=== PATIENT | male | born 1945 | race Caucasian/White ===

== ENCOUNTER 2017-07-17 05:32 | Inpatient (IN) ==
[2017-07-17 05:54] VITALS: BMI 23.1
[2017-07-17] MEDS ORDERED: CEFAZOLIN 1 G INJECTION IVP ONE (06:00)
[2017-07-17] MEDS: LR 1,000 ML IV SCH ×5 (06:36→23:34)
[2017-07-17] MEDS ORDERED: INDOCYANINE GREEN 25mg INJECTION ONE (06:58)
[2017-07-17] MEDS ORDERED: BUPIVACAINE 0.25% (2.5mg/ml) PF 30ml INJECTION ONE (07:05)
[2017-07-17] MEDS ORDERED: SALINE FLUSH 10ml SYRINGE ONE ×2 (07:08→07:58)
--- NOTE | 2017-07-17 07:14 | Anesthesia Preoperative Report ---
Anesthesia Preoperative Record - Date and Time Date: 07/17/17 Preoperative Diagnosis: Robotic Patti K82.8 Proposed Procedure: robotic LC NPO Since Date: 07/16/17 NPO Since Time: 23:00 Allergies/Adverse Reactions: Allergies Allergy/AdvReac Type Severity Reaction Status Date / Time latex AdvReac blisters Verified 07/17/17 06:03 - Vital Signs Vital Signs: Temperature 97.8 F 07/17/17 05:54 Pulse Rate 90 07/17/17 06:08 Respiratory Rate 20 07/17/17 05:54 Blood Pressure 137/87 07/17/17 05:54 Pulse Oximetry 92 07/17/17 05:54 Oxygen Delivery Method Room Air Height and Weight: Height 5 ft 11 in Weight 75 kg Body Mass Index 23.1 - Medications Inpatient Medications: Current Medications Lactated Ringer's (Lactated Ringers) 1,000 mls @ 50 mls/hr IV .Q20H ADRIEL Last Admin: 07/17/17 06:36 Dose: 50 mls/hr Lidocaine HCl (Xylocaine-Mpf 1% Vial) 1 mg ID O ONE Stop: 07/17/17 16:50 Last Admin: 07/17/17 06:36 Dose: Not Given Home Medications: Home Medications Medication Instructions Recorded Confirmed Type Naproxen 250 mg tablet 250 mg PO QDRHS 90 Days tab 05/30/17 07/17/17 History Advair Diskus (Fluticasone 250 1 - 2 puff INH DAILY 30 Days #60 06/21/17 History mcg-salmeterol 50 mcg)dose powdr for inhalation [place] 10 mg-acetaminophen 325 mg 1 tab PO QID PRN 30 Days #120 tab 06/21/17 History tablet Prevacid (Lansoprazole) 30 mg 30 mg PO DAILY 90 Days cap 06/21/17 07/17/17 History capsule,delayed release amlodipine 5 mg tablet 5 mg PO DAILY tab 06/21/17 07/17/17 History atorvastatin 10 mg tablet 10 mg PO DAILY 90 Days tab 06/21/17 07/17/17 History roflumilast 500 mcg tablet 500 mcg PO DAILY 30 Days tab 06/21/17 07/17/17 History umeclidinium 62.5 mcg/actuation 1 puff INH DAILY 30 Days #30 06/21/17 07/17/17 History blister powder for inhalation raNITIdine HCl [Zantac] 150 mg PO DAILY 07/02/17 07/17/17 History Is Patient on Beta Nighat?: No - Medical History Respiratory: Reports: Other (lung disease, lung Ca hx with right lobectomy, home O2) Cardiovascular: Reports: Hypertension DENIES: Angina, Congestive Heart Failure, Coronary Artery Disease, Myocardial Infarction Gastrointestional: Reports: Gastroesophageal Reflux Disease (well controlled) Renal/Endocrine: DENIES: Diabetes Mellitus Type 2 Other History: DENIES: Anesthesia Reactions - Surgical History HEENT Surgeries: Reports: Tonsillectomy (1949's) Respiratory Surgery/Treatments: Reports: Oxygen Administration (2 l at night) GI Surgery/Treatments: Reports: Appendectomy, Colonoscopy, EGD Musculoskeletal Surgery/Tx: Reports: Total Knee Replacement (right) Anesthesia Reactions: None Hx Family Anesthesia Reaction: No History of Motion Sickness: No - Social History Smoking Status: Current every day smoker Hx Chewing Tobacco Use: No Second Hand Exposure: No Substance Use Type: does not use - Pertinent Findings EKG Rhythm: Normal Sinus Rhythm - Physical Exam Respiratory Exam: Present: lungs clear (diminished right) - Airway Assessment Mallampati Score: II Teeth: upper dentures, lower dentures (both out and in pts possession) Overall Assessment: no airway concerns - ASA ASA Score: 3 - Plan Anesthesia: General TIVA - Discussion Discussion: Discussed risks/options/alternatives of anesthesia and questions answered. Patient consents. Nursing pain assessment noted. Present for Discussion: family member Attestation Statement: Prior to the delivery of any anesthetic medication, I examined the patient, developed the plan, obtained the patient's consent and discussed the risk and benefits of the procedure with the patient/guardian. - Additional Information Seen by Anesthesia: Yes
[2017-07-17] MEDS ORDERED: ALBUTEROL 2.5mg/3ml (0.083%) NEB AEROSOL PRN (07:15)
[2017-07-17] MEDS ORDERED: INDOCYANINE GREEN 25mg INJECTION IVP ONE (07:30)
[2017-07-17] MEDS ORDERED: PROPOFOL 20 ML ONE (07:36)
[2017-07-17] MEDS ORDERED: ROCURONIUM 50 MG/5 ML INJECTION IVP ONE (07:37)
[2017-07-17] MEDS ORDERED: FentaNYL 100 MCG/2 ML INJECTION ONE (07:37)
[2017-07-17] MEDS ORDERED: MIDAZOLAM 2mg/2ml INJECTION ONE (07:37)
[2017-07-17] MEDS ORDERED: PHENYLEPHRINE INJ 10 MG/ML VIAL IV ONE (07:58)
[2017-07-17] MEDS ORDERED: BUPIVACAINE 0.25% (2.5mg/ml) PF 30ml INJECTION INFIL ONE (08:02)
[2017-07-17] MEDS ORDERED: ACETAMINOPHEN IV 1,000 MG/100 ML VIAL IV ONE (08:14)
[2017-07-17] MEDS ORDERED: DEXAMETHASONE 4 MG/ML INJECTION ONE (08:26)
[2017-07-17] MEDS ORDERED: ONDANSETRON 4 MG/2 ML INJECTION ONE (08:26)
[2017-07-17] MEDS ORDERED: EPHEDRINE 50mg/ml INJECTION ONE (08:29)
[2017-07-17] MEDS ORDERED: SALINE FLUSH 10ml SYRINGE IV ONE (08:30)
[2017-07-17] MEDS ORDERED: GLYCOPYRROLATE 0.4 MG/2 ML INJECTION ONE (09:03)
[2017-07-17] MEDS ORDERED: NEOSTIGMINE 10 MG/10 ML INJECTION ONE (09:03)
[2017-07-17] MEDS ORDERED: HYDROMORPHONE 2 MG/ML INJECTION ONE (09:11)
[2017-07-17] MEDS ORDERED: HYDROMORPHONE 2 MG/ML INJECTION IVP PRN (09:26)
[2017-07-17] MEDS ORDERED: ONDANSETRON 4 MG/2 ML INJECTION IVP PRN ×2 (09:26→10:20)
--- NOTE | 2017-07-17 09:37 | General Surgery Procedure Note ---
Date of Procedure: 07/17/17 Surgeon: Nava Postoperative Diagnosis: biliary dyskinesia Procedure: robotic laparoscopic cholecystectomy Estimated Blood Loss: See Anesthesia Record.
[2017-07-17] MEDS ORDERED: IBUPROFEN 200 MG TABLET PO PRN (10:20)
[2017-07-17] MEDS ORDERED: ACETAMINOPHEN 500 MG TABLET PO PRN (10:20)
[2017-07-17] MEDS ORDERED: PROMETHAZINE 25 MG INJECTION IVP PRN (10:20)
[2017-07-17] MEDS: Oxycodone *IR* 5 MG TABLET PO PRN ×2 (10:55→16:37)
[2017-07-17] MEDS: ALBUTEROL/IPRATROPIUM 2.5mg-0.5mg/3ml NEB AEROSOL SCH ×3 (11:50→19:55)
[2017-07-17] MEDS ORDERED: LIDOCAINE 1% (10mg/ml) 2mL INJ PF SDV ID ONE (16:49)
[2017-07-17] MEDS: ATORVASTATIN 10 MG TABLET PO SCH (21:34)
[2017-07-17] MEDS: DOCUSATE SODIUM 100 MG CAPSULE PO SCH (21:34)
--- NOTE | 2017-07-17 21:41 | Operative Note ---
DATE OF OPERATION 07/17/2017 PREOPERATIVE DIAGNOSES 1. Persistent right upper quadrant abdominal pain. 2. Mildly low gallbladder ejection fraction suggesting biliary dysfunction/ biliary dyskinesia demonstrated on 07/09/2017 hepatobiliary scan with gallbladder ejection fraction. 3. Status post umbilical hernia repair with use of mesh and excision of umbilicus. POSTOPERATIVE DIAGNOSES 1. Persistent right upper quadrant abdominal pain. 2. Mildly low gallbladder ejection fraction suggesting biliary dysfunction/ biliary dyskinesia demonstrated on 07/09/2017 hepatobiliary scan with gallbladder ejection fraction. 3. Status post umbilical hernia repair with use of mesh and excision of umbilicus. OPERATION Multiport robotic laparoscopic cholecystectomy. SURGEON Dr. Vick ANESTHESIA General ASA Class 2 FINDINGS The gallbladder appeared be chronically inflamed. The gallbladder did not appear to contain any gallstones. The liver appeared normal. Loops of large and small intestine which were visualized appeared normal. Stomach appeared normal. The patient had undergone a previous umbilical hernia repair with placement of mesh. The umbilicus was excised at the time of the previous umbilical hernia repair and the patient did just have a transversely oriented incision scar at the area where the umbilicus used to be. Examination with laparoscope from within the peritoneal cavity did show the piece of mesh which was in place at the umbilical hernia repair site. There were a few adhesions of greater omentum to this mesh. DESCRIPTION OF OPERATION The patient did have injectable indocyanine green dye administered intravenously preoperatively. The patient was placed in supine position on the operating table. General anesthesia was satisfactorily induced. The abdomen was prepped and draped in routine sterile fashion. Bupivacaine 0.25% without epinephrine was infiltrated into the skin and underlying abdominal wall structures at a left subcostal site. A small incision was made at this area. A Veress needle was inserted into the peritoneal cavity through the incision. Pneumoperitoneum was established with carbon dioxide. The Veress needle was removed. A site for an instrument port was selected at the left upper quadrant of the abdomen at the midclavicular line. The skin and underlying structures at the abdominal wall were infiltrated with bupivacaine at this site. An incision was made at this site. An 8-mm da Debbie instrument port was placed at this incision at the left upper quadrant of the abdomen. The da Debbie 8.5-mm 30 -degree laparoscope was inserted through this left upper quadrant instrument port. The umbilical area was examined from within the peritoneal cavity with this laparoscope. A site for another port was selected at the epigastric region of the abdomen. Bupivacaine 0.25% without epinephrine was infiltrated into skin and underlying abdominal wall structures at this site. A small incision was made. A 5-mm port was placed at this site. A curved dissecting scissors was inserted through this 5-mm epigastric port and used to divide the adhesions binding greater omentum to the anterior abdominal wall parietal peritoneum at the previous umbilical hernia repair site. Bupivacaine 0.25% without epinephrine was then infiltrated into the skin and underlying tissue at a level inferior to the old transversely oriented incision scar at the umbilical region. A transversely oriented incision was made at this area. A 12 -mm camera port was placed at this incision located inferior to the old transversely oriented umbilical hernia repair incision scar. The anterior abdominal wall was visualized from within the peritoneal cavity with the 8.5-mm da Debbie laparoscope inserted at the left upper quadrant port as the 12-mm camera port was placed at the infraumbilical incision. The 12-mm camera port was inserted so that the camera port entered the peritoneal cavity out beyond the margin of the mesh which was in place. The camera port was inserted through the abdominal wall at a level inferior to the inferior margin of the mesh so that this incision did not pass through any of the mesh from the previous umbilical hernia repair. The 8.5-mm da Debbie laparoscope was then removed from the left upper quadrant port. A 12-mm 30-degree da Debbie laparoscope was inserted at the infraumbilical camera port. The table was placed in reverse Trendelenburg position and the right side of the table was tilted up. The skin and underlying structures at the abdominal wall were infiltrated with bupivacaine at another incision site at the left side of the abdomen. An incision was made at this site and an [employer] counter assistant port was placed at this incision. The skin and underlying abdominal wall structures were infiltrated with bupivacaine at a port site at the right upper quadrant of the abdomen. An incision was made at this site and an 8-mm da Debbie instrument port was placed at this incision. The skin and underlying abdominal wall structures were infiltrated with bupivacaine at another port site at a more lateral location at the right side of the abdomen. An incision was made at this site and another 8-mm da Debbie instrument port was placed at this incision. The da Debbie robotic system was brought to the operating table. The da Debbie robotic system was docked to the camera port and the instrument ports. The da Debbie 12-mm 30-degree laparoscope was inserted at the camera port. A [place] bipolar forceps was inserted at the 8-mm instrument port at the left upper quadrant of the abdomen associated with instrument arm #1. A Cadiere forceps was inserted at the 8-mm instrument port at the right upper quadrant of the abdomen associated with instrument arm #2. A ProGrasp forceps was inserted at the 8-mm instrument port at the right lateral location at the abdomen associated with instrument arm #3. These instruments were all placed into a position adjacent to the gallbladder. The surgeon then went from the patient's side at the operating table to the surgeon console. The ProGrasp forceps with instrument arm #3 was used to grasp the fundus of the gallbladder and elevate the gallbladder and reflect the liver up superiorly towards the right diaphragm. The infundibulum of the gallbladder was grasped with Cadiere forceps with instrument arm #2. Dissection was performed at the hepatocystic triangle. The cystic duct was dissected out and identified. The cystic artery was dissected out and identified. The cystic duct was demonstrated with Firefly fluorescence imaging at this time. Dissection was performed at the hepatocystic triangle until the only two structures remaining were the cystic duct and the cystic artery. In addition to this, the infundibulum end of the gallbladder was dissected out of the gallbladder bed. A critical view of safety was achieved at this time. The hepatocystic triangle was cleared of all the fatty and fibrous tissue until the only two structures remaining were the cystic duct and cystic artery. The infundibulum end of the gallbladder was also dissected out of the gallbladder bed at this time. Hem-o-lili clips were then applied to the cystic duct at the junction of the cystic duct and the gallbladder. The cystic duct was divided between the Hem-o-lili clips with the curved dissecting scissors. Two of the Hem-o-lili clips were left in place on the cystic duct stump. Two of the Hem-o-lili clips were applied to the cystic artery. The cystic artery was divided between the Hem-o-lili clips with the monopolar curved scissors. The monopolar curved scissors was then used to dissect the gallbladder out of the gallbladder bed. Tissue was coagulated with the monopolar curved scissors as the gallbladder was being dissected out of the gallbladder bed to maintain hemostasis. The gallbladder was completely dissected out of the gallbladder bed. The gallbladder was placed in a position in the peritoneal cavity along the margin of the liver. The instruments were removed from the instrument ports. The da Debbie laparoscope was removed from the camera port. The da Debbie robotic system was undocked from the ports. The surgeon left the surgeon console and returned back to the side of the patient at the operating table. The da Debbie 8.5-mm 30-degree laparoscope was inserted at one if the right-sided da Debbie instrument ports. The specimen retrieval pouch was inserted at the camera port. The gallbladder was placed in the specimen retrieval pouch. The specimen retrieval pouch containing the gallbladder was brought out through the infraumbilical incision. The gallbladder was submitted as a specimen for study by the pathologist. The instrument ports were all removed. Carbon dioxide was removed from the peritoneal cavity by desufflation. The fascial layer of the infraumbilical incision was closed with a series of simple interrupted stitches using 0-Vicryl suture. The skin margins were then closed at all the incisions with subcuticular stitches using 4-0 Vicryl suture. Benzoin with 1/4-inch wide Steri -Strips were applied to the incisions. Band-Aids were applied to the incisions. The patient tolerated the operation well. The patient was transferred from the operating room to the recovery room in satisfactory condition. KAELYN
[2017-07-18] MEDS: Oxycodone *IR* 5 MG TABLET PO PRN (02:15)
[2017-07-18] MEDS: MORPHINE SULFATE 10 MG SYRINGE IV PRN ×6 (04:21→21:00)
[2017-07-18] MEDS: ALBUTEROL/IPRATROPIUM 2.5mg-0.5mg/3ml NEB AEROSOL SCH ×4 (06:42→19:54)
[2017-07-18] MEDS: PANTOPRAZOLE 40 MG TABLET PO SCH (07:12)
[2017-07-18] MEDS: ALBUTEROL/IPRATROPIUM 2.5mg-0.5mg/3ml NEB AEROSOL PRN (07:17)
--- NOTE | 2017-07-18 08:17 | XRay Report ---
Indication: checking for pneumothorax PROCEDURE: XR chest 1V: Encounter: Initial Comparison: Chest CT dated June 06, 2017 Findings: Extensive subcutaneous emphysema noted in the neck with a small amount of left abdominal wall. No visible pneumothorax. Development of atelectasis in the left lung with a small left effusion. Trace free air underneath the right hemidiaphragm, expected postoperatively. Emphysema. Heart size and mediastinal contours are stable. Pulmonary vascularity is grossly unchanged. Impression: Left lung atelectasis with trace effusion. Presumably postoperative subcutaneous emphysema. .
[2017-07-18] MEDS: SALINE FLUSH 10ml SYRINGE IVF PRN ×3 (08:23→15:40)
[2017-07-18] MEDS: DOCUSATE SODIUM 100 MG CAPSULE PO SCH ×2 (09:05→21:58)
[2017-07-18] MEDS: AMLODIPINE 5 MG TABLET PO SCH (09:05)
[2017-07-18] MEDS: ROFLUMILAST 500 MCG TABLET PO SCH (09:46)
--- NOTE | 2017-07-18 10:12 | Consult Note ---
<Soledad Licea V - Last Filed: 07/18/17 09:32> Consult Information - Data of Consult Patient: new to practice Consult date: 07/18/17 Requesting Physician: Shailesh Vick MD Primary Care Provider: Noman Cunha DO - Consult Narrative Reason for consult: Chest pain, shortness of breath History of present illness: Dk is a 71-year-old male who is routinely under the primary care of Dr. Noman Cunha. Patient was admitted under the care of Dr. Vick for a planned cholecystectomy yesterday 07/17/17. Overall he tolerated the procedure well. Overnight he developed some urinary retention of over 1 liter and had a burton cath placed. He utilized bi-pap overnight and and this morning as requiring 3 liters of oxygen to maintain saturations. He also started having acute left anterior chest pain. EKG this morning was obtained reveling sinus tachycardia. Recent old records reviewed over the past several months. Patient reports an unintentional. No weight loss of approximately 50 lbs. on 06/06/[address] scan of the chest, Abdomen and pelvis which did He had a CT of Chest, abdomen and pelvis show no acute metastatic process. However, a moderate pericardial effusion. On 07/03 underwent an EGD and colonoscopy with multiple polyps removed. Pathology of duodenal and colon biopsies did not reveal any acute malignant process. Due to continued upper abdominal pain he had a outpatient HIDA scan did reveal On 07/09/17 reveled biliary dyskinesia thus schedule Cholecystectomy was performed. Past history was discussed with his primary care provider Dr. Noman Cunha with further questioning regarding a document from [facility] admission in April. This document indicated patient has stomach cancer and is on chemotherapy. Upon questioning both patient and PCP deny this history. It is likely accurate documentation. PFSH Medical History GERD HLD HTN COPD Home oxygen at 2 liters at night Lung cancer Pneumonia Recent unintentional weight loss Surgical History: 1. Appendectomy as a child at [place], [place]. 2. Tonsillectomy as a child at [place], [place]. 3. Right total knee replacement operation in 2008 or 2009 at [facility] at [place], [place]. 4. Thoracotomy with right lower lobectomy in [address] Zavala at [facility] at [place], [place]. This was performed for treatment of lung carcinoma. 5. Repair of umbilical hernia with resection of umbilicus in 2010 or 2011 at [facility] at [place], [place]. 6. Esophagogastroduodenoscopy with biopsies and total colonoscopy with biopsies on 07/03/[address] Vick at [facility] at [place], [place]. One postoperative diagnosis was gastroesophageal reflux disease. Another postoperative diagnosis was small sliding hiatal hernia. - Social History Smoking status: Current every day smoker Substance use type: does not use Alcohol intake frequency: does not drink Does patient use chewing tobacco?: No Social history: Primary care provider, Dr. Noman Cunha Review of Systems Comprehensive ROS: completed and no additional positive findings except those as stated - Constitutional Constitutional: Present: anorexia, weight loss - Cardiovascular Cardiovascular: Present: chest pain - Respiratory Respiratory: Present: dyspnea Medications Home Medications Medication Instructions Recorded Confirmed Type Naproxen 250 mg tablet 250 mg PO QDRHS 90 Days tab 05/30/17 07/17/17 History Advair Diskus (Fluticasone 250 1 - 2 puff INH DAILY 30 Days #60 06/21/17 History mcg-salmeterol 50 mcg)dose powdr for inhalation [place] 10 mg-acetaminophen 325 mg 1 tab PO QID PRN 30 Days #120 tab 06/21/17 History tablet Prevacid (Lansoprazole) 30 mg 30 mg PO DAILY 90 Days cap 06/21/17 07/17/17 History capsule,delayed release amlodipine 5 mg tablet 5 mg PO DAILY tab 06/21/17 07/17/17 History atorvastatin 10 mg tablet 10 mg PO DAILY 90 Days tab 06/21/17 07/17/17 History roflumilast 500 mcg tablet 500 mcg PO DAILY 30 Days tab 06/21/17 07/17/17 History umeclidinium 62.5 mcg/actuation 1 puff INH DAILY 30 Days #30 06/21/17 07/17/17 History blister powder for inhalation raNITIdine HCl [Zantac] 150 mg PO DAILY 07/02/17 07/17/17 History Allergies Allergy/AdvReac Type Severity Reaction Status Date / Time latex AdvReac blisters Verified 07/17/17 06:03 Exam Vital Signs: Temperature 95.9 F L 07/18/17 07:00 Pulse Rate 105 H 07/18/17 09:10 Respiratory Rate 28 H 07/18/17 09:10 Blood Pressure 134/87 07/18/17 07:00 Pulse Oximetry 94 07/18/17 09:10 Telemetry Rhythm: Sinus Rhythm Height/Weight/BMI: Height 1.8 m Weight 75.5 kg Body Mass Index 23.1 - Constitutional Present: mild distress - Routine HEENT Exam Eye: Present: EOMI ENT: Present: mucous membranes moist, dentition normal - Routine Neck Exam Present: full ROM - Routine Respiratory Exam Present: wheezes - Routine Cardiovascular Exam Present: RRR, S1, S2. Absent: murmur - Routine Abdominal Exam Present: soft, non distended. Absent: normoactive bowel sounds (hypoactive bowel sounds), tenderness Comments: Abdominal incisions without evidence of erythema or drainage Results - Labs CBC & Chem 7: 07/18/17 06:21 07/18/17 06:24 Assessment and Plan (1) Chest pain Current visit: Yes Status: Acute (2) Dyspnea Current visit: Yes Status: Acute (3) S/P cholecystectomy Current visit: Yes Status: Acute (4) COPD (chronic obstructive pulmonary disease) Current visit: Yes Status: Chronic (5) HTN (hypertension) Current visit: Yes Status: Chronic (6) Recent weight loss Current visit: Yes Status: Acute (7) GERD (gastroesophageal reflux disease) Current visit: Yes Status: Chronic (8) Dependence on nocturnal oxygen therapy Current visit: Yes Status: Chronic (9) Hyperlipidemia Current visit: Yes Status: Chronic DVT Prophylaxis: SCD's Resuscitation Status: Full Code Assessment and Plan: Plan Continue postoperative care as per Dr. Vick In light of acute chest pain, increased dyspnea and increased oxygen demands Ordered a serum troponin to be ran on this morning 6 a.m. lab draw. Will also obtain serial troponins every 6 hours 3. Given findings of moderate pericardial effusion from CT scan in May. Will obtain an echocardiogram for further cardiac evaluation. On her patient. Cardiac telemetry. Consultation placed for Dr. Miller evaluation and recommendations. Continue with scheduled DuoNeb 4 times a day, will add Pulmicort twice a day. Patient did have urinary retention overnight and is now requiring Burton catheter Requiring to 3 liters of oxygen by nasal cannula. Routinely patient does use home oxygen at nighttime only. We will work on weaning down oxygen. Encourage use of incentive spirometry Resume home Daliresp dose Obtain daily weight Protonix 40 millirems daily for GI protection Morphine for pain control Will discuss further order and plan of care with attending Dr Aguirre Appreciate medical consultation At time of discharge medical care is to return to PCP Dr Cunha. Hospital Course Summary Disclaimer: The visit summary below is not to be considered part of the above Progress Note. Hospital Course: 07/18/17 Plan Continue postoperative care as per Dr. Vick In light of acute chest pain, increased dyspnea and increased oxygen demands Ordered a serum troponin to be ran on this morning 6 a.m. lab draw. Will also obtain serial troponins every 6 hours 3. Given findings of moderate pericardial effusion from CT scan in May. Will obtain an echocardiogram for further cardiac evaluation. On her patient. Cardiac telemetry. Consultation placed for Dr. Miller evaluation and recommendations. Continue with scheduled DuoNeb 4 times a day, will add Pulmicort twice a day. Patient did have urinary retention overnight and is now requiring Burton catheter Requiring to 3 liters of oxygen by nasal cannula. Routinely patient does use home oxygen at nighttime only. We will work on weaning down oxygen. Encourage use of incentive spirometry Resume home Daliresp dose Obtain daily weight Protonix 40 millirems daily for GI protection Morphine for pain control Will discuss further order and plan of care with attending Dr Aguirre Appreciate medical consultation At time of discharge medical care is to return to PCP Dr Cunha. Sepsis Assessment - Evaluation Sepsis screening result: No Definite Risk <Jose Aguirre - Last Filed: 07/18/17 19:16> Consult Information - Data of Consult Requesting Physician: Shailesh Vick MD Primary Care Provider: Noman Cunha DO [facility] Patient Stated Medical History Cerebrovascular Accident No Paralysis No Seizures No Syncope No Angina No Cardiac Arrhythmia No Congestive Heart Failure No Coronary Artery Disease No Heart Murmur No Hypertension Yes Hypotension No Myocardial Infarction No Rheumatic Fever No Valvular Heart Disease No Other Cardiology No Asthma No Bronchitis No Chronic Obstructive Pulmonary Yes Disease (COPD) Pneumonia No Pulmonary Edema No Pulmonary Embolism No Sleep Apnea No Tuberculosis No Other Respiratory Yes: lung disease, lung Ca hx with right lobectomy, home O2 Diabetes Mellitus Type 1 No Diabetes Mellitus Type 2 No Gastroesophageal Reflux Yes: well controlled Disease Other GI Yes: weight loss Osteoarthritis No Other Musculoskeletal No Anesthesia Reactions No Blood Transfusions No Chemotherapy No Malignant Hyperthermia No Other Yes: right lower lobectomy Depression No Now No Clinic Medical History (Last Reviewed 06/21/17 @ 10:51 by Shelia Mistry MA) GERD (gastroesophageal reflux disease) (Chronic Medical) HLD (hyperlipidemia) (Chronic Medical) HTN (hypertension) (Chronic Medical) Lung cancer (Chronic Medical) Pneumonia (Chronic Medical) Exam Vital Signs: Temperature 97.5 F 07/18/17 15:45 Pulse Rate 94 07/18/17 16:00 Respiratory Rate 36 H 07/18/17 15:45 Blood Pressure 135/85 07/18/17 15:45 Pulse Oximetry 96 07/18/17 15:45 Height/Weight/BMI: Height 1.8 m Weight 75.5 kg Body Mass Index 23.1 Results - Labs CBC & Chem 7: 07/18/17 06:21 07/18/17 06:24 Assessment and Plan (1) Chest pain Current visit: Yes Status: Acute (2) S/P cholecystectomy Current visit: Yes Status: Acute (3) Dyspnea Current visit: Yes Status: Acute (4) COPD (chronic obstructive pulmonary disease) Current visit: Yes Status: Chronic (5) HTN (hypertension) Current visit: Yes Status: Chronic (6) GERD (gastroesophageal reflux disease) Current visit: Yes Status: Chronic (7) Recent weight loss Current visit: Yes Status: Acute (8) Dependence on nocturnal oxygen therapy Current visit: Yes Status: Chronic (9) Hyperlipidemia Current visit: Yes Status: Chronic Assessment and Plan: Assessment Chest pain Dyspnea S/P cholecystectomy COPD (chronic obstructive pulmonary disease) HTN (hypertension) Recent weight loss GERD (gastroesophageal reflux disease) Hyperlipidemia Dependence on nocturnal oxygen therapy Have independently interviewed and examined pt. Chart reviewed. Case discussed with Dr Miller and my [employer]. Above care plan developed with my supervision; agree with above. Breathing more short since Sx. Can't get breath. Notes chest pain-fullness to left side of chest. No palpitations. Slight cough. Ab not hurting or painful. No nausea. Taking liquids well. Not bloated or discomfortable. Did developed urinary retention. Lungs: decreased, shallow breathing CV: regular AB: soft nt/nd BS decreased. Incisional sited looking well MSE: awake alert appropriate Plan: DuoNeb and Budesonide to help COPD. IS ordered yesterday-continue. Dr Miller consulted due to chest pain. Trend troponin. ECHO obtained. CT PE protocol obtained due to dyspnea post op: No PE, but small pneumothorax noted. Most likely this will resolve spontaneously with high flow O2. Still stop BIPAP due as would expect BIPAP to exacerbate pneumothorax. Recheck CXR in am. Recheck BMP in am due to IVF contrast use. Monitor blood counts. Hospital Course Summary Disclaimer: The visit summary below is not to be considered part of the above Progress Note.
[2017-07-18] MEDS: BUDESONIDE INH.SOLN 0.5mg/2ml NEB AEROSOL SCH ×2 (10:41→19:55)
--- NOTE | 2017-07-18 13:24 | Cardiology Consult Note ---
History of Present Illness Consult date: 07/18/17 <Jennyfer Parrish 07/18/17 13:29> Requesting physician: Jose Aguirre <Jennyfer Parrish 07/18/17 13:29> Consult reason: chest pain <Jennyfer Parrish 07/18/17 13:29> Chief complaint: chest pain <Jennyfer Parrish 07/18/17 13:29> History of present illness: Dk is a 71-year-old male who is a patient of Dr. Noman Cunha who was admitted under the care of Dr. Vick for a planned cholecystectomy yesterday . Overall he tolerated the procedure well. Overnight he developed some urinary retention of over 1 liter and had a burton cath placed. He utilized bi- pap overnight and and this morning as requiring 3 liters of oxygen to maintain saturations. Earlier today he began having acute left anterior chest pain, worse with inspiration. No associated nausea, dizzines or lightheadedness. EKG this morning was obtained revealing sinus tachycardia with nonspecific ST-T wave changes. Initial Troponin level 0.033, second level is now pending. <Jennyfer Parrish 07/18/17 13:45> Review of Systems - Constitutional Constitutional: Present: anorexia, weight loss. Absent: chills, fever(s) < Jennyfer Parrish 07/18/17 13:40> - EENMT Eyes: Absent: change in vision <Jennyfer Parrish 07/18/17 13:40> Balance: Absent: vertigo <Jennyfer Parrish 07/18/17 13:40> Mouth/Throat: Absent: sore throat <Jennyfer Parrish 07/18/17 13:40> - Cardiovascular Cardiovascular: Present: chest pain. Absent: palpitations, syncope, orthopnea <Jennyfer Parrish 07/18/17 13:40> Rhythm: Present: regular rhythm <Jennyfer Parrish 07/18/17 13:40> Vascular: Absent: pedal edema <Jennyfer Parrish 07/18/17 13:40> - Respiratory Respiratory: Present: dyspnea. Absent: cough <Jennyfer Parrish 07/18/17 13:40 > - Gastrointestinal Gastrointestinal: Absent: constipation, diarrhea, nausea, vomiting <Jennyfer Parrish - 07/18/17 13:40> - Genitourinary Genitourinary: Present: as per HPI, difficulty urinating <FrancoisJennyfer 13:40> - Integumentary/Breasts Integumentary: Absent: rash <Jennyfer Parrish 07/18/17 13:40> - Neurological Neurological: Absent: dizziness <FrancoisJennyfer 07/18/17 13:40> - Endocrine Endocrine: Absent: palpitations <Jennyfer Parrish 07/18/17 13:40> [facility] Patient Stated Medical History Cerebrovascular Accident No Paralysis No Seizures No Syncope No Angina No Cardiac Arrhythmia No Congestive Heart Failure No Coronary Artery Disease No Heart Murmur No Hypertension Yes Hypotension No Myocardial Infarction No Rheumatic Fever No Valvular Heart Disease No Other Cardiology No Asthma No Bronchitis No Chronic Obstructive Pulmonary Yes Disease (COPD) Pneumonia No Pulmonary Edema No Pulmonary Embolism No Sleep Apnea No Tuberculosis No Other Respiratory Yes: lung disease, lung Ca hx with right lobectomy, home O2 Diabetes Mellitus Type 1 No Diabetes Mellitus Type 2 No Gastroesophageal Reflux Yes: well controlled Disease Other GI Yes: weight loss Osteoarthritis No Other Musculoskeletal No Anesthesia Reactions No Blood Transfusions No Chemotherapy No Malignant Hyperthermia No Other Yes: right lower lobectomy Depression No Now No Clinic Medical History (Last Reviewed 06/21/17 @ 10:51 by Shelia Mistry MA) GERD (gastroesophageal reflux disease) (Chronic Medical) HLD (hyperlipidemia) (Chronic Medical) HTN (hypertension) (Chronic Medical) Lung cancer (Chronic Medical) Pneumonia (Chronic Medical) <Zurdo Miller - 07/19/17 10:37> Patient Stated Medical History Cerebrovascular Accident No Paralysis No Seizures No Syncope No Angina No Cardiac Arrhythmia No Congestive Heart Failure No Coronary Artery Disease No Heart Murmur No Hypertension Yes Hypotension No Myocardial Infarction No Rheumatic Fever No Valvular Heart Disease No Other Cardiology No Asthma No Bronchitis No Chronic Obstructive Pulmonary Yes Disease (COPD) Pneumonia No Pulmonary Edema No Pulmonary Embolism No Sleep Apnea No Tuberculosis No Other Respiratory Yes: lung disease, lung Ca hx with right lobectomy, home O2 Diabetes Mellitus Type 1 No Diabetes Mellitus Type 2 No Gastroesophageal Reflux Yes: well controlled Disease Other GI Yes: weight loss Osteoarthritis No Other Musculoskeletal No Anesthesia Reactions No Blood Transfusions No Chemotherapy No Malignant Hyperthermia No Other Yes: right lower lobectomy Depression No Now No Clinic Medical History (Last Reviewed 06/21/17 @ 10:51 by Shelia Mistry MA) GERD (gastroesophageal reflux disease) (Chronic Medical) HLD (hyperlipidemia) (Chronic Medical) HTN (hypertension) (Chronic Medical) Lung cancer (Chronic Medical) Pneumonia (Chronic Medical) <Jennyfer Parrish 07/18/17 13:29> Surgical History: 1. Appendectomy as a child at [place], [place]. 2. Tonsillectomy as a child at [place], [place]. 3. Right total knee replacement operation in 2008 or 2009 at [facility] at [place], [place]. 4. Thoracotomy with right lower lobectomy in [address] Zavala at [facility] at [place], [place]. This was performed for treatment of lung carcinoma. 5. Repair of umbilical hernia with resection of umbilicus in 2010 or 2011 at [facility] at [place], [place]. 6. Esophagogastroduodenoscopy with biopsies and total colonoscopy with biopsies on 07/03/[address] Vick at [facility] at [place], [place]. One postoperative diagnosis was gastroesophageal reflux disease. Another postoperative diagnosis was small sliding hiatal hernia. <Jennyfer Parrish 13:29> Family History: Twin Brother- Coronary stents <Jennyfer Parrish 07/18/17 13:40> - Social History Smoking status: Current every day smoker <Jennyfer Parrish 07/18/17 13:29> Substance use type: does not use <Jennyfer Parrish 07/18/17 13:40> Alcohol intake frequency: does not drink <Jennyfre Parrish 07/18/17 13:40> Household members: none <Jennyfer Parrish 07/18/17 13:40> Current occupational status: retired <Jennyfer Parrish 07/18/17 13:40> Does patient use chewing tobacco?: No <Jennyfer Parrish 07/18/17 13:29> Current residence: Apartment/Private Home <Jennyfer Parrish - 07/18/17 13:40> Medications Home Medications Medication Instructions Recorded Confirmed Type Naproxen 250 mg tablet 250 mg PO QDRHS 90 Days tab 05/30/17 07/17/17 History Advair Diskus (Fluticasone 250 1 - 2 puff INH DAILY 30 Days #60 06/21/17 History mcg-salmeterol 50 mcg)dose powdr for inhalation Palisade 10 mg-acetaminophen 325 mg 1 tab PO QID PRN 30 Days #120 tab 06/21/17 History tablet Prevacid (Lansoprazole) 30 mg 30 mg PO DAILY 90 Days cap 06/21/17 07/17/17 History capsule,delayed release amlodipine 5 mg tablet 5 mg PO DAILY tab 06/21/17 07/17/17 History atorvastatin 10 mg tablet 10 mg PO DAILY 90 Days tab 06/21/17 07/17/17 History roflumilast 500 mcg tablet 500 mcg PO DAILY 30 Days tab 06/21/17 07/17/17 History umeclidinium 62.5 mcg/actuation 1 puff INH DAILY 30 Days #30 06/21/17 07/17/17 History blister powder for inhalation raNITIdine HCl [Zantac] 150 mg PO DAILY 07/02/17 07/17/17 History <Zurdo Miller - 07/19/17 10:37> Allergies Allergy/AdvReac Type Severity Reaction Status Date / Time latex AdvReac blisters Verified 07/17/17 06:03 <Zurdo Miller - 07/19/17 10:37> Exam Vital signs: Temperature 97.0 F 07/19/17 07:52 Pulse Rate 102 H 07/19/17 09:30 Respiratory Rate 24 07/19/17 07:52 Blood Pressure 127/71 07/19/17 09:30 Pulse Oximetry 93 07/19/17 07:52 <Zurdo Miller - 07/19/17 10:37> Temperature 96.2 F L 07/18/17 11:45 Pulse Rate 90 07/18/17 11:45 Respiratory Rate 28 H 07/18/17 11:45 Blood Pressure 122/74 07/18/17 11:45 Pulse Oximetry 93 07/18/17 11:45 <Jennyfer Parrish 07/18/17 13:29> - Constitutional no acute distress, well nourished, well developed, cooperative <Jennyfer Parrish 07/18/17 13:40> - Routine HEENT Exam Head: Present: normocephalic <Jennyfer Parrish 07/18/17 13:40> - Routine Neck Exam Absent: JVD, carotid bruit <Jennyfer Parrish 07/18/17 13:40> - Routine Chest/Breast/Axilla Exam Chest wall: Absent: tenderness <Jennyfer Parrish 07/18/17 13:40> - Routine Respiratory Exam Present: wheezes. Absent: CTA bilaterally <Jennyfer Parrish 07/18/17 13:40> - Routine Cardiovascular Exam Present: no murmur, tachycardia. Absent: JVD <Jennyfer Parrish 07/18/17 13:40 > - Routine Abdominal Exam Present: soft, tenderness <Jennyfer Parrish 07/18/17 13:40> Comments: laporoscopy incisions <Jennyfer Parrish 07/18/17 13:40> - Routine Extremities Exam Present: no edema <Jennyfer Parrish 07/18/17 13:40> - Routine Skin Exam Present: intact, dry, warm. Absent: rash <Jennyfer Parrish 07/18/17 13:40> - Routine Neurological Exam Present: alert, oriented X3 <Jennyfer Parrish 07/18/17 13:40> - Routine Psychiatric Exam Present: normal affect, normal thought process <Jennyfer Parrish 07/18/17 13: 40> Results 07/19/17 04:27 07/19/17 04:27 <Zurdo Miller - 07/19/17 10:37> Cardiac Enzymes 07/18/17 07/18/17 07/19/17 Range/Units 13:03 19:16 04:27 AST 16 L (17-59) U/L Troponin I 0.052 D 0.050 (0-0.12) ng/ml CBC 07/19/17 Range/Units 04:27 WBC 7.2 D (4.5-11.0) T/MM3 RBC 4.03 L (4.50-5.90) M/MM3 Hgb 12.6 L (13.5-17.5) GM/DL Hct 38.0 L (41-53) % Plt Count 181 (130-400) T/MM3 Neut # 5.3 (1.8-7.7) T/MM3 Lymph # 1.1 (1-4.8) T/MM3 [place] # 0.8 (0-0.8) T/MM3 Eos # 0.1 (0-0.5) T/MM3 Baso # 0.0 (0-0.2) T/MM3 Comprehensive Metabolic Panel 07/19/17 Range/Units 04:27 Sodium 139 (134-144) MEQ/L Potassium 4.1 D (3.6-5) MEQ/L Chloride 102 (98-107) MEQ/L Carbon Dioxide 30 (22-30) MEQ/L BUN 10.0 (9-20) MG/DL Creatinine 0.5 L (0.8-1.5) MG/DL Glucose 96 (75-110) MG/DL Calcium 9.0 D (8.4-10.2) MG/DL AST 16 L (17-59) U/L ALT 31 (21-72) U/L Alkaline Phosphatase 64 (38-126) U/L Total Protein 6.0 L (6.3-8.2) G/DL Albumin 3.5 (3.5-5.0) G/DL Intake and Output 07/18/17 07/19/17 07/19/17 22:59 06:59 14:59 Intake Total 200 / 200 Output Total 1300 / 1300 650 / 650 Balance -1100 / -1100 -650 / -650 Intake: Oral 200 / 200 Output: Urine 300 / 300 Urine Amount (Catheter) 1000 / 1000 650 / 650 Other: Urine Appearance Clear Clear Urine Color Tea Colored Tea Colored Urine Odor Strong Strong # Voids 1 <Zurdo Miller - 07/19/17 10:37> Cardiac Enzymes 07/18/17 Range/Units 06:24 Troponin I 0.033 (0-0.12) ng/ml CBC 07/18/17 Range/Units 06:21 WBC 13.9 H D (4.5-11.0) T/MM3 RBC 4.37 L (4.50-5.90) M/MM3 Hgb 13.6 (13.5-17.5) GM/DL Hct 40.0 L (41-53) % Plt Count 218 D (130-400) T/MM3 Neut # 10.7 H (1.8-7.7) T/MM3 Lymph # 2.0 (1-4.8) T/MM3 [place] # 1.1 H (0-0.8) T/MM3 Eos # 0.0 (0-0.5) T/MM3 Baso # 0.0 (0-0.2) T/MM3 Comprehensive Metabolic Panel 07/18/17 Range/Units 06:24 Sodium 141 (134-144) MEQ/L Potassium 5.1 H D (3.6-5) MEQ/L Chloride 106 (98-107) MEQ/L Carbon Dioxide 25 (22-30) MEQ/L BUN 12.0 (9-20) MG/DL Creatinine 0.5 L D (0.8-1.5) MG/DL Glucose 82 (75-110) MG/DL Calcium 9.9 (8.4-10.2) MG/DL Intake and Output 07/17/17 07/18/17 07/18/17 22:59 06:59 14:59 Intake Total 1783.75 / 1783.75 426 / 426 Output Total 675 / 675 2175 / 2175 150 / 150 Balance 1108.75 / 1108.75 -1749 / -1749 -150 / -150 Intake: IV 833.75 / 833.75 426 / 426 Lactated Ringers 1,000 ml 833.75 / 833.75 426 / 426 @ 75 mls/hr IV .[id number] [facility] Rx#:[id number] Oral 950 / 950 Output: Urine 675 / 675 875 / 875 150 / 150 Urine Amount (Catheter) 1300 / 1300 Other: Urine Appearance Clear Clear Clear Urine Color Straw Yellow Straw Urine Odor Normal Normal Normal Size of Bowel Movement Moderate # Bowel Movements 1 Weight 166 lb 7.184 oz Patient Weight 07/19/17 06:59 Weight 166 lb 7.184 oz <Jennyfer Parrish - 07/18/17 13:29> - Imaging and Cardiology Echo: report reviewed <Jennyfer Parrish - 07/18/17 13:40> EKG results: image reviewed <FrancoisJennyfer Moris 07/18/17 13:40> Imaging & Cardiology Narrative: Date of Exam: 07/18/17 Type of Exam(s): US echo doppler complete DATE OF PROCEDURE July 18, [address] Shailesh Vick This is a two-dimensional echo with spectral Doppler, color-flow and M-mode. It was obtained in a patient with chest pain and shortness of breath. Left atrial dimension was not measured. However, by visual estimation it appears to be dilated. Left ventricle end-diastolic dimension is normal. Left ventricle wall thickness is mildly increased. LV systolic function is normal with ejection fraction of 65%. Right atrium is normal. Right ventricle is normal. Aortic root dimension appears to be normal. Mitral valve is normal with mild mitral regurgitation. Aortic valve shows fibrocalcific changes with no stenosis or insufficiency. Tricuspid valve shows moderate tricuspid regurgitation with moderate pulmonary hypertension with estimated pulmonary artery systolic pressure of 55. Pulmonary valve shows no pulmonary insufficiency. There is small pericardial effusion with no echocardiographic evidence of tamponade. This was a technically difficult study and parasternal views were not interpretable. IMPRESSION 1. Technically difficult study. 2. Normal LV systolic function with ejection fraction of 65%. 3. Left atrial dilation. 4. Small pericardial effusion with no echocardiographic evidence of tamponade. 5. Mild left ventricular hypertrophy. 6. Mild mitral regurgitation. 7. Aortic sclerosis. 8. Moderate tricuspid regurgitation with moderate pulmonary hypertension with estimated pulmonary artery systolic pressure of 55. 07/18/17 13:38 <FrancoisJennyfer Subramanian 07/18/17 13:40> - EKG Interpretation EKG shows: tachycardia, sinus rhythm <Jennyfer Parrish Moris 07/18/17 13:40> EKG interpretations - EKG EKG results cardiology: sinus rhythm <FrancoisJennyfer 07/18/17 13:40> EKG shows: tachycardia <FrancoisJennyfer diaz Moris 07/18/17 13:40> - Blocks, axis, hypertrophy, ST abn Repolarization changes or abnormalities: nonspecific abnormality, ST segment, and/or T wave <Jennyfer Parrish 07/18/17 13:40> Assessment and Plan (1) Chest pain Current visit: Yes Status: Acute (2) S/P cholecystectomy Current visit: Yes Status: Acute (3) Dyspnea Current visit: Yes Status: Acute (4) HTN (hypertension) Current visit: Yes Status: Chronic (5) Hyperlipidemia Current visit: Yes Status: Chronic <Zurdo Miller - 07/19/17 10:37> (1) Chest pain Current visit: Yes Status: Acute Not likely cardiac etiology, pain is worse with inspiration. - Trend serial troponin levels, Repeat EKG in 6 hours. - CTA to rule out PE as is hypoxic - Aspirin 81mg daily (2) Dyspnea Current visit: Yes Status: Acute Chest pain is worse with inspiration. CTA to rule out PE as is hypoxic (3) S/P cholecystectomy Current visit: Yes Status: Acute per Dr Vick (4) HTN (hypertension) Current visit: Yes Status: Chronic continue current therapy with Amlodipine (5) Hyperlipidemia Current visit: Yes Status: Chronic takes atorvastatin <Jennyfer Parrish - 07/19/17 10:06> - Attestation Attestation Narrative: 07/19/17 10:37 Recommendation After examining the patient I agree with the above assessment. I am involved in the formulation of the patient's plan of care. <Zurdo Miller - 07/19/17 10:37> Hospital Course Summary Disclaimer: The visit summary below is not to be considered part of the above Progress Note. <Zurdo Miller - 07/19/17 10:37> The visit summary below is not to be considered part of the above Progress Note. <Jennyfer Parrish - 07/18/17 13:29> Hospital Course: 07/18/17 Plan Continue postoperative care as per Dr. Vick In light of acute chest pain, increased dyspnea and increased oxygen demands Ordered a serum troponin to be ran on this morning 6 a.m. lab draw. Will also obtain serial troponins every 6 hours 3. Given findings of moderate pericardial effusion from CT scan in May. Will obtain an echocardiogram for further cardiac evaluation. On her patient. Cardiac telemetry. Consultation placed for Dr. Miller evaluation and recommendations. Continue with scheduled DuoNeb 4 times a day, will add Pulmicort twice a day. Patient did have urinary retention overnight and is now requiring Burton catheter Requiring to 3 liters of oxygen by nasal cannula. Routinely patient does use home oxygen at nighttime only. We will work on weaning down oxygen. Encourage use of incentive spirometry Resume home Daliresp dose Obtain daily weight Protonix 40 millirems daily for GI protection Morphine for pain control Will discuss further order and plan of care with attending Dr Aguirre Appreciate medical consultation At time of discharge medical care is to return to PCP Dr Cunha. 07/18/17 Cardiology Chest pain: - not likely cardiac etiology, pain is worse with inspiration. - Trend serial troponin levels, Repeat EKG in 6 hours. - CTA to rule out PE as is hypoxic. - Aspirin 81mg daily - Continue home Amlodipine and Atorvastatin Thank you for allowing us to participate in the care of this patient, we will follow along with you. <Jennyfer Parrish - 07/19/17 10:15> Sepsis Assessment - Evaluation Sepsis screening result: No Definite Risk <Jennyfer Parrish - 07/18/17 13:29>
--- NOTE | 2017-07-18 13:29 | Echocardiogram ---
DATE OF PROCEDURE July 18, [address] Shailesh Vick This is a two-dimensional echo with spectral Doppler, color-flow and M-mode. It was obtained in a patient with chest pain and shortness of breath. Left atrial dimension was not measured. However, by visual estimation it appears to be dilated. Left ventricle end-diastolic dimension is normal. Left ventricle wall thickness is mildly increased. LV systolic function is normal with ejection fraction of 65%. Right atrium is normal. Right ventricle is normal. Aortic root dimension appears to be normal. Mitral valve is normal with mild mitral regurgitation. Aortic valve shows fibrocalcific changes with no stenosis or insufficiency. Tricuspid valve shows moderate tricuspid regurgitation with moderate pulmonary hypertension with estimated pulmonary artery systolic pressure of 55. Pulmonary valve shows no pulmonary insufficiency. There is small pericardial effusion with no echocardiographic evidence of tamponade. This was a technically difficult study and parasternal views were not interpretable. IMPRESSION 1. Technically difficult study. 2. Normal LV systolic function with ejection fraction of 65%. 3. Left atrial dilation. 4. Small pericardial effusion with no echocardiographic evidence of tamponade. 5. Mild left ventricular hypertrophy. 6. Mild mitral regurgitation. 7. Aortic sclerosis. 8. Moderate tricuspid regurgitation with moderate pulmonary hypertension with estimated pulmonary artery systolic pressure of 55. MTDD
[2017-07-18] MEDS ORDERED: NS 100 ML ONE (17:17)
[2017-07-18] MEDS ORDERED: IOHEXOL 350mg/ml 75ml INJECTION ONE (17:17)
[2017-07-18] MEDS ORDERED: SALINE FLUSH 10ml SYRINGE ONE (17:17)
[2017-07-18] MEDS: TAMSULOSIN 0.4 MG CAPSULE PO SCH ×2 (21:58→22:04)
[2017-07-18] MEDS: ATORVASTATIN 10 MG TABLET PO SCH (21:58)
[2017-07-19] MEDS: MORPHINE SULFATE 10 MG SYRINGE IV PRN ×6 (01:17→21:25)
[2017-07-19] MEDS: PANTOPRAZOLE 40 MG TABLET PO SCH (06:02)
[2017-07-19] MEDS: ALBUTEROL/IPRATROPIUM 2.5mg-0.5mg/3ml NEB AEROSOL SCH ×5 (07:56→19:01)
[2017-07-19] MEDS: BUDESONIDE INH.SOLN 0.5mg/2ml NEB AEROSOL SCH ×2 (07:57→19:10)
--- NOTE | 2017-07-19 08:11 | CT Scan Report ---
Indication: Dyspnea post op PROCEDURE: CT angio pulm emboli: Encounter: Initial Comparison: None Technique: Axial CT pulmonary angiographic phase images were performed through the chest after the administration of intravenous contrast. Coronal and Sagittal MIP reconstructed images were created and reviewed. Automated Exposure Control and Iterative Reconstruction dose reducing techniques were utilized. Contrast: Omnipaque 350 62 mL Findings: Pulmonary arteries: Exam is diagnostic to the subsegmental pulmonary arterial level. There are no filling defects identified to suggest a pulmonary embolus. Other findings: There is a small left pneumothorax. There is extensive pneumomediastinum and subcutaneous emphysema extending into the bilateral neck. There are small bilateral pleural effusions, left greater than right with left lower lobe consolidation. No right-sided pneumothorax. The central airways are patent. Heart size is normal. Small pericardial effusion. The upper abdomen shows areas of free intraperitoneal air consistent with patient's recent surgery with some fluid. Impression: 1. No pulmonary embolus. 2. Small left pneumothorax with extensive pneumomediastinum and subcutaneous emphysema. 3. Pleural effusions and left lower lobe probable atelectasis. There is a preliminary report by [facility]. .
--- NOTE | 2017-07-19 08:24 | XRay Report ---
Indication: Pneumothorax on chest CT PROCEDURE: XR chest 1V: Encounter: Initial Comparison: CT angiogram of the chest from yesterday Findings: Small left apical pneumothorax is visible along the medial mediastinal border. Small left pleural effusion is again noted with left lower lobe probable atelectasis. Emphysema. No right-sided pneumothorax. Trace right pleural effusion. Heart size and mediastinal contours are stable. Subcutaneous emphysema in the neck is slightly decreased. Pneumomediastinum seen on CT is not readily visualized radiographically. Impression: Small left pneumothorax appears stable to slightly decreased. .
[2017-07-19] MEDS: AMLODIPINE 5 MG TABLET PO SCH (09:28)
[2017-07-19] MEDS: DOCUSATE SODIUM 100 MG CAPSULE PO SCH ×2 (09:29→21:25)
[2017-07-19] MEDS: ROFLUMILAST 500 MCG TABLET PO SCH (09:29)
[2017-07-19] MEDS ORDERED: FUROSEMIDE 20 MG/2 ML INJECTION IVP ONE (09:48)
--- NOTE | 2017-07-19 09:54 | Progress Note ---
<Soledad Licea V - Last Filed: 07/19/17 09:49> Subjective: Dk is seen this morning in follow up. He is currently requiring 10 liters of oxygen by nasal cannula to maintain saturations 91%. His overall respiratory status appears to be slightly more effort and breath sounds are wet with audible wheezing. Heart rate noted to be mildly tachycardic at 105. Blood pressure stable 127/71. Dk verbalizes that his shortness of breath. Feels about the same. Denies currently having chest pain. Objective Vital signs: Temperature 97.0 F 07/19/17 07:52 Pulse Rate 102 H 07/19/17 09:30 Respiratory Rate 24 07/19/17 07:52 Blood Pressure 127/71 07/19/17 09:30 Pulse Oximetry 93 07/19/17 07:52 Height/Weight/BMI: Height 1.8 m Weight 75.5 kg Body Mass Index 23.1 - Constitutional Present: mild distress, well nourished, well developed - Routine HEENT Exam Eye: Present: EOMI ENT: Present: mucous membranes moist, dentition normal - Routine Respiratory Exam Present: wheezes - Routine Cardiovascular Exam Present: RRR, S1, S2. Absent: murmur - Routine Abdominal Exam Present: soft, normoactive bowel sounds, non distended. Absent: tenderness - Routine Extremities Exam Present: full ROM - Routine Skin Exam Present: intact, dry, warm - Routine Neurological Exam Present: alert, oriented X3, CN II-XII intact - Routine Lymphatic Exam Lymphatic: Absent: adenopathy - Routine Psychiatric Exam Present: normal affect, normal thought process Results - Labs CBC & Chem 7: 07/19/17 04:27 07/19/17 04:27 Assessment and Plan (1) Chest pain Current visit: Yes Status: Acute (2) Dyspnea Current visit: Yes Status: Acute (3) S/P cholecystectomy Current visit: Yes Status: Acute (4) COPD (chronic obstructive pulmonary disease) Current visit: Yes Status: Chronic (5) HTN (hypertension) Current visit: Yes Status: Chronic (6) Recent weight loss Current visit: Yes Status: Acute (7) GERD (gastroesophageal reflux disease) Current visit: Yes Status: Chronic (8) Dependence on nocturnal oxygen therapy Current visit: Yes Status: Chronic (9) Hyperlipidemia Current visit: Yes Status: Chronic Assessment and Plan: Assessment Chest pain Dyspnea S/P cholecystectomy COPD (chronic obstructive pulmonary disease) HTN (hypertension) Recent weight loss GERD (gastroesophageal reflux disease) Hyperlipidemia Dependence on nocturnal oxygen therapy Plan Continue with high flow oxygen, scheduled breathing treatments and incentive spirometry. CT scan of the chest was negative for PE, however, did reveal extensive subcutaneous emphysema with pleural effusion. As well as a approximately 10% left anterior pneumothorax. May need to consider pulmonology consultation for further guidance. Based on wet breath sounds, will give patient Lasix 20mg IV 1 now. Echo revealed an EF of 65%, small pericardial effusion without evidence of tamponade and on moderate tricuspid returned and moderate pulmonary hypertension. Appreciate consultation by Dr Miller. Morning labs reviewed Will discuss further orders and plan of care with attending, Dr. Aguirre Sepsis Assessment - Evaluation Sepsis screening result: No Definite Risk Hospital Course Summary Disclaimer: The visit summary below is not to be considered part of the above Progress Note. Hospital Course: 07/18/17 Plan Continue postoperative care as per Dr. Vick In light of acute chest pain, increased dyspnea and increased oxygen demands Ordered a serum troponin to be ran on this morning 6 a.m. lab draw. Will also obtain serial troponins every 6 hours 3. Given findings of moderate pericardial effusion from CT scan in May. Will obtain an echocardiogram for further cardiac evaluation. On her patient. Cardiac telemetry. Consultation placed for Dr. Miller evaluation and recommendations. Continue with scheduled DuoNeb 4 times a day, will add Pulmicort twice a day. Patient did have urinary retention overnight and is now requiring Nathan catheter Requiring to 3 liters of oxygen by nasal cannula. Routinely patient does use home oxygen at nighttime only. We will work on weaning down oxygen. Encourage use of incentive spirometry Resume home Daliresp dose Obtain daily weight Protonix 40 millirems daily for GI protection Morphine for pain control Will discuss further order and plan of care with attending Dr Aguirre Appreciate medical consultation At time of discharge medical care is to return to PCP Dr Cunha. 07/19/17 Plan Continue with high flow oxygen, scheduled breathing treatments and incentive spirometry. CT scan of the chest was negative for PE, however, did reveal extensive subcutaneous emphysema with pleural effusion. As well as a approximately 10% left anterior pneumothorax. May need to consider pulmonology consultation for further guidance. Based on wet breath sounds, will give patient Lasix 20mg IV 1 now. Echo revealed an EF of 65%, small pericardial effusion without evidence of tamponade and on moderate tricuspid returned and moderate pulmonary hypertension. Appreciate consultation by Dr Miller. Morning labs reviewed Will discuss further orders and plan of care with attending, Dr. Aguirre <Jose Aguirre - Last Filed: 07/19/17 16:29> Objective Vital signs: Temperature 97.1 F 07/19/17 11:10 Pulse Rate 110 H 07/19/17 12:42 Respiratory Rate 18 07/19/17 15:15 Blood Pressure 135/75 07/19/17 12:42 Pulse Oximetry 93 07/19/17 12:42 Height/Weight/BMI: Height 1.8 m Weight 75 kg Body Mass Index 23.1 Results - Labs CBC & Chem 7: 07/19/17 04:27 07/19/17 04:27 Assessment and Plan (1) Chest pain Current visit: Yes Status: Acute (2) S/P cholecystectomy Current visit: Yes Status: Acute (3) Dyspnea Current visit: Yes Status: Acute (4) COPD (chronic obstructive pulmonary disease) Current visit: Yes Status: Chronic (5) HTN (hypertension) Current visit: Yes Status: Chronic (6) GERD (gastroesophageal reflux disease) Current visit: Yes Status: Chronic (7) Recent weight loss Current visit: Yes Status: Acute (8) Dependence on nocturnal oxygen therapy Current visit: Yes Status: Chronic (9) Hyperlipidemia Current visit: Yes Status: Chronic DVT Prophylaxis: SCD's Resuscitation Status: Full Code Assessment and Plan: Assessment Chest pain Dyspnea Small left pneumothorax Left subcutaneous emphysema S/P cholecystectomy COPD (chronic obstructive pulmonary disease) HTN (hypertension) Recent weight loss GERD (gastroesophageal reflux disease) Hyperlipidemia Dependence on nocturnal oxygen therapy Acute urinary retention Have independently interviewed and examined pt. Chart reviewed. Case discussed with Dr Vick and my [employer]. Above care plan developed with my supervision; agree with above. Rough day-still feels very SOA. Notes some cough, congestion. Winded with any activities. Notes pain to left abdomen (points right to area of crepitans). Mild nausea. Not hungry. Passing scat amount of flatus. Nathan placed due to urinary retention. Lung: decrease breath sounds bilaterally-inspiratory and expiratory wheezes to the left side. Shallow breathing. CV: regular AB: soft nt/nd BS decreased Skin: SQ emphysema palpated to left abdominal wall - area tender to palpation Plan: Lasix given to help motivate fluid. Continue high flow O2 to help pneumothorax resolve. PT/OT to help with pulmonary debility. Continue breathing treatments and IS. Dr Alcala consulted for urinary retention. Will recheck CBC in am due to resolving leukocytosis. Check BMP in am due to Lasix use. Hospital Course Summary Disclaimer: The visit summary below is not to be considered part of the above Progress Note.
--- NOTE | 2017-07-19 10:05 | Consultation ---
DATE OF CONSULTATION 07/18/[address] Vick REASON FOR CONSULTATION Urinary retention. HISTORY OF PRESENT ILLNESS Mr. Fox is a 71-year old current every-day smoker with a history of lung cancer. He was admitted for cholecystectomy. He was found to be in urinary retention postop. Over 1000 mL were in the bladder with initial catheterization. Voiding trials subsequently failed and just before I saw him, another catheter was placed in, draining nearly 1000 mL. He has classical prostatism even prior to the hospitalization for the surgery. He was urinating more often than every hour throughout the day and 4-5 times a night in very poor , interrupted flow. There is no history of urinary tract infection or gross hematuria and no urologic surgery instrumentation. His parents when he was very young and he does not know much of a family history. CURRENT MEDICAL HISTORY 1. Gastroesophageal reflux disease. 2. Hypertension. 3. Chronic obstructive pulmonary disease. 4. History of lung cancer and underwent thoracotomy with right lower lobectomy in early 2009. SURGICAL HISTORY 1. Appendectomy. 2. Tonsillectomy. 3. Right total knee replacement. 4. Thoracotomy with right lower lobectomy. SOCIAL HISTORY He is a current every-day smoker and does not use alcohol. HOME MEDICATIONS ON ADMISSION 1. Naproxen 250 mg daily. 2. Advair Diskus 1-2 puff inhalation daily. 3. Warrens 10 mg q.i.d. p.r.n. 4. Prevacid 30 mg daily. 5. Amlodipine 5 mg daily. 6. Atorvastatin 10 mg daily. 7. Roflumilast 500 mcg daily. 8. Ranitidine 150 mg daily. 9. Umeclidinium 62.5 mcg/actuation one puff daily. ALLERGIES Patient is allergic to: LATEX which causes blisters. REVIEW OF SYSTEMS No fever or chills but there is unintentional weight loss. Patient is short of breath, on home oxygen, and has some chest pain. No bowel issues such as blood stool or diarrhea or constipation. PHYSICAL EXAMINATION GENERAL: Alert and oriented male in no acute distress. He appears short of breath. HEENT: Normocephalic and atraumatic. Extraocular muscles intact. ENT is clear. NECK: Supple with prominent accessory respiratory muscles. No JVD and trachea is midline. LUNGS: There are diffuse rhonchi and wheeze throughout. No rales are present. HEART: Normal sinus rhythm without murmur or gallop. ABDOMEN: Soft, with normal bowel sounds. No palpable mass and no hepatosplenomegaly. There are no abdominal bruits and no pulsating mass. There is no CVA tenderness. : Urologically, he has normal circumcised male phallus with a Nathan catheter in place. Urine draining is clear grossly. Testicles are descended bilaterally without mass or tenderness. There is no evidence of inguinal hernia. Prostate is +1 to 2/+4, benign feeling and nontender. EXTREMITIES: Without edema, and has unrestricted movement of upper and lower extremities. NEUROLOGIC: Grossly intact without focal sensory or motor deficit. PSYCHIATRIC: No evidence of depression, anxiety and has normal affect. LABORATORY His creatinine this morning was 0.5. IMPRESSION Patient in urinary retention postop, but he had severe prostatism and I suspect that he was not emptying his bladder satisfactorily. It is likely that he was in some degree of retention even before the surgery. Anesthesia and addition of oxycodone probably has exacerbated the problem and complete ned retention developed postop. PLAN We will start Tamsulosin 0.4 mg q. h.s. This may cause increased acid reflux disease in addition to lightheadedness. It could also increase sinus congestion as a side effect. When he is more ambulatory and fully recovered and no longer needing narcotics for pain control, we could give him a voiding trial. I would suspect that he should have indwelling Nathan catheter at least a week before voiding trial is given. Thank you for the consultation. KAELYN
[2017-07-19] MEDS: ASPIRIN *EC* 81 MG TABLET PO SCH (10:51)
--- NOTE | 2017-07-19 11:03 | Progress Note ---
DATE 07/18/2017 POSTOP DAY #1 HISTORY The patient has been eating well since the operation yesterday. The patient was voiding small amounts every 30-60 minutes early this morning. A urinary bladder scan was performed which showed greater than 999 mL of residual urine within the bladder. The patient did undergo straight catheterization this morning after attempting to void and was found have 1300 mL of residual fluid drained from the urinary bladder by straight catheterization. Dr. Alcala was consulted. The patient has continued to void small amounts of urine frequently throughout the day. The patient did undergo another bladder scan this evening which showed greater than 999 mL of residual urine within the urinary bladder. Dr. Alcala did see the patient in consultation this evening after this. He did direct the nurses to place a Nathan catheter in the patient and the patient now has a Nathan catheter in place. The patient did have complaints of left chest pain this morning. An EKG was performed which showed sinus tachycardia and nonspecific ST-T-wave changes. A chest x-ray was performed this morning which showed left lung atelectasis with trace left pleural effusion. No pneumothorax was visible on this upright portable chest x-ray performed this morning. The patient did appear to have atelectasis at the left lung. The patient has chest x-ray findings of subcutaneous emphysema. This is most prominent at the neck. The patient had a CBC performed. White blood cell count was 13,900. Hemoglobin was 13.6. Hematocrit was 40. The patient was given intravenous morphine. The hospitalist service was first consulted this morning for evaluation and treatment of the chest pain. Dr. Miller was then consulted by the hospitalist service. The patient did have a serum troponin level of 0.033. Additional serum troponin levels were ordered. Dr. Miller did order an echocardiogram. The echocardiogram was read by Dr. Miller. The echocardiogram showed a normal left ventricular systolic function with an ejection fraction of 65%. The echocardiogram showed a small pericardial effusion with no evidence of any tamponade. The echocardiogram showed mild mitral regurgitation, aortic sclerosis and moderate tricuspid regurgitation. It was thought by the cardiology service that the left chest pain was not likely to have a cardiac etiology. Plans were made to continue to perform serial troponin levels and repeat an EKG. Cardiac telemetry was planned. The patient did have some labored breathing during the night last night and had some BiPAP treatments. The patient does use oxygen by nasal cannula at home. The patient had been using oxygen by nasal cannula at home preoperatively. The patient is known to have chronic obstructive pulmonary disease. The patient had been using incentive spirometry since the operation yesterday. Oxygen saturation was 92% on room air and 94% on oxygen at 2 liters per minute by nasal cannula at 0457 hours today. The patient did experience some labored breathing and shallow breathing with respiratory rate of 28 and a pulse of 105. The patient was given another BiPAP treatment early this morning and he was breathing much better after that. The patient underwent evaluation by the hospitalist service and DuoNeb q.i.d. and Pulmicort b.i.d. was ordered. This has helped the patient with his breathing. The patient did have one more episode late in the afternoon where he had some tachypnea and he received another BiPAP treatment at this time and was breathing much better after that. The patient did undergo a chest CT angiography with intravenous contrast late in the afternoon or early evening. This showed no evidence of any pulmonary emboli. The chest CT scan did show a small left anterior pneumothorax which was less than 10% of lung volume. There was also some pneumomediastinum demonstrated by the chest CT scan. There was also subcutaneous emphysema throughout the neck and upper thorax demonstrated by the chest CT scan. There was also some consolidation of the left lower lobe of the lung thought to be due to atelectasis. The patient continues to receive respiratory therapy treatments and oxygen administration at this time. PHYSICAL EXAMINATION VITAL SIGNS: Temperature is 97.5 degrees Fahrenheit temporal. Pulse is 94. Respiratory rate is 18. Blood pressure is 135/85. The latest oxygen saturation by nasal cannula was an oxygen saturation of 98% on 2 liters per minute by nasal cannula at 1513 hours. ABDOMEN: All the abdominal incisions look good. No sign of any wound healing problems at the incisions. CHEST: The patient does have a few bilateral wheezes. There are good breath sounds bilaterally. HEART: Regular rhythm. No murmurs are heard at this time. LABORATORY DATA White blood cell count was 13,900 this morning. Hemoglobin was 13.6. Hematocrit was 40. Serum sodium was 141. Serum potassium was 5.1. Serum creatinine was 0.5. The patient did have an initial troponin level of 0.033. Repeat troponin was 0.052. Repeat troponin after that was 0.050. IMAGING DATA Chest x-ray performed this morning showed some left lung atelectasis with a trace left pleural effusion. This was a portable upright chest x-ray. There was no visible pneumothorax on this chest x-ray. There was some subcutaneous emphysema seen at the neck. The patient did undergo an echocardiogram today. This showed normal left ventricular systolic function with an ejection fraction of 65%. There was mild mitral regurgitation, aortic sclerosis and moderate tricuspid regurgitation demonstrated. There was a small pericardial effusion demonstrated with no echocardiographic evidence of tamponade. The patient did undergo a CT angiogram of the chest on late afternoon or early evening today. This did show a small left anterior pneumothorax which was less than 10% of lung volume. There was consolidation of the left lower lobe with atelectasis. There was subcutaneous emphysema at the neck. There was pneumomediastinum demonstrated. IMPRESSION 1. Status post multiport robotic laparoscopic cholecystectomy on 07/17/2017. 2. Small left anterior pneumothorax (less than 10% of lung volume) demonstrated on CT chest angiography today. This is probably due to barotrauma with a popped bleb at the apex of the left lung which occurred when the patient was intubated and coughing during the operation. 3. Pneumomediastinum demonstrated on chest CT angiography today. 4. Subcutaneous emphysema throughout the neck and upper thorax demonstrated on chest CT angiography today. 5. Acute left chest pain. This is probably due to the small left pneumothorax. This appears to be noncardiac left chest pain. 6. Acute dyspnea. The patient does have severe underlying chronic obstructive pulmonary disease and emphysema which contributes to this. He has an acute small pneumothorax and atelectasis which may contribute to this. 7. Chronic obstructive pulmonary disease with history of dependence on nocturnal oxygen therapy at home preoperatively. 8. Left lung atelectasis. 9. Postoperative urinary retention. 10. Small left pericardial effusion demonstrated on echocardiogram today. 11. Mild mitral regurgitation and moderate tricuspid regurgitation demonstrated on echocardiogram today. PLAN 1. Continue postoperative care of the abdomen by Dr. Vick. 2. Continue medical care by hospitalist service. 3. Continue cardiac care by Dr. Miller. 4. Continue management of postoperative urinary retention by Dr. Alcala. 5. Continue incentive spirometry. 6. Continue DuoNeb q.i.d. and Pulmicort b.i.d. and BiPAP as needed for respiratory support. 7. Serial troponins 8. Cardiac telemetry. 9. Continue sequential compression devices for deep venous thrombosis prophylaxis. 10. Continue Protonix 40 mg p.o. daily for GI protection. 11. Repeat chest x-ray tomorrow to monitor the status of the small left pneumothorax. Hopefully this will resolve spontaneously with observation. If the pneumothorax enlarges enough, the patient will need to have placement of a left chest tube. 12. Continue oxygen administration. MTDD
[2017-07-19] MEDS: ALBUTEROL/IPRATROPIUM 2.5mg-0.5mg/3ml NEB AEROSOL PRN (11:23)
--- NOTE | 2017-07-19 11:44 | Cardiology Progress Note ---
Subjective Principal diagnosis: chest pain, dyspnea <Jennyfer Parrish - 07/19/17 11:52> Interval history: Herman is seen in his room on Surgical. He states he still has some left chest pain but not as intense as it was yesterday. Today he feels like his breathing is harder and states he is a patient of [employer] Dr. Simpson and was supposed to have an appointment with him tomorrow. <Jennyfer Parrish - 07/19/17 11:52> Exam Vital signs: Temperature 98.1 F 07/20/17 12:00 Pulse Rate 105 H 07/20/17 12:00 Respiratory Rate 24 07/20/17 12:00 Blood Pressure 130/75 07/20/17 12:00 Pulse Oximetry 95 07/20/17 12:00 <Zurdo Miller - 07/20/17 13:30> Temperature 97.1 F 07/19/17 11:10 Pulse Rate 98 07/19/17 11:10 Respiratory Rate 20 07/19/17 11:10 Blood Pressure 117/69 07/19/17 11:10 Pulse Oximetry 99 07/19/17 11:10 <Jennyfer Parrish 07/19/17 11:52> - Constitutional mild distress, thin, cooperative <Jennyfer Parrish 07/19/17 11:52> - Routine HEENT Exam Head: Present: normocephalic <Jennyfer Parrish 07/19/17 11:52> ENT: Present: mucous membranes moist <Jennyfer Parrish 07/19/17 11:52> - Routine Neck Exam Absent: JVD, carotid bruit <Jennyfer Parrish 07/19/17 11:52> - Routine Chest/Breast/Axilla Exam Chest wall: Present: tenderness <Jennyfer Parrish 07/19/17 11:52> - Routine Respiratory Exam Present: decreased breath sounds (left), rhonchi (throughout). Absent: CTA bilaterally <Jennyfer Parrish 07/19/17 11:52> - Routine Cardiovascular Exam Present: no murmur. Absent: JVD <Jennyfer Parrish 07/19/17 11:52> - Routine Abdominal Exam Present: soft, normoactive bowel sounds <Jennyfer Parrish - 07/19/17 11:52> - Routine Extremities Exam Present: no edema <Jennyfer Parrish - 07/19/17 11:52> - Routine Skin Exam Present: intact, dry <Jennyfer Parrish - 07/19/17 11:52> - Routine Neurological Exam Present: alert, oriented X3 <Jennyfer Parrish - 07/19/17 11:52> - Routine Psychiatric Exam Present: normal affect, normal thought process <Jennyfer Parrish - 07/19/17 11: 52> - Additional findings Additional findings: Laboratory Results - last 48 hr 07/18/17 07/18/17 07/18/17 06:21 06:24 13:03 WBC 13.9 H D RBC 4.37 L Hgb 13.6 Hct 40.0 L MCV 91.5 MCH 31.1 MCHC 34.0 RDW Std Deviation 49.7 Plt Count 218 D MPV 9.2 L Immature Gran % (Auto) 0.4 Neut % (Auto) 76.8 H Lymph % (Auto) 14.5 L Swain % (Auto) 7.9 Eos % (Auto) 0.3 Baso % (Auto) 0.1 Neut # 10.7 H Lymph # 2.0 Swain # 1.1 H Eos # 0.0 Baso # 0.0 Abs Immat Gran (auto) 0.05 H Turbidity < 20 Sodium 141 Potassium 5.1 H D Chloride 106 Carbon Dioxide 25 Anion Gap 10 BUN 12.0 Creatinine 0.5 L D GFR Calculation 164 BUN/Creatinine Ratio 24 Glucose 82 Calculated Osmolality 270 Calcium 9.9 Magnesium Total Bilirubin Icterus Index < 2 AST ALT Alkaline Phosphatase Troponin I 0.033 0.052 D Total Protein Albumin Globulin Albumin/Globulin Ratio Specimen Hemolysis 61 H < 15 07/18/17 07/19/17 07/19/17 19:16 04:27 04:27 WBC 7.2 D RBC 4.03 L Hgb 12.6 L Hct 38.0 L MCV 94.3 MCH 31.3 MCHC 33.2 RDW Std Deviation 50.5 H Plt Count 181 MPV 9.9 Immature Gran % (Auto) 0.1 Neut % (Auto) 72.8 H Lymph % (Auto) 15.0 L Swain % (Auto) 10.4 H Eos % (Auto) 1.4 Baso % (Auto) 0.3 Neut # 5.3 Lymph # 1.1 Swain # 0.8 Eos # 0.1 Baso # 0.0 Abs Immat Gran (auto) 0.01 Turbidity < 20 Sodium 139 Potassium 4.1 D Chloride 102 Carbon Dioxide 30 Anion Gap 7 BUN 10.0 Creatinine 0.5 L GFR Calculation 164 BUN/Creatinine Ratio 20 Glucose 96 Calculated Osmolality 267 Calcium 9.0 D Magnesium 1.8 Total Bilirubin 1.00 Icterus Index < 2 AST 16 L ALT 31 Alkaline Phosphatase 64 Troponin I 0.050 Total Protein 6.0 L Albumin 3.5 Globulin 2.5 Albumin/Globulin Ratio 1.4 Specimen Hemolysis < 15 < 15 Acetaminophen (Tylenol) 500 - 1,000 mg PO Q6H PRN PRN Reason: Discomfort Last Admin: 07/18/17 04:20 Dose: 1,000 mg Albuterol/Ipratropium (Duoneb) 3 ml AEROSOL QID [facility] Last Admin: 07/19/17 11:23 Dose: 3 ml Albuterol/Ipratropium (Duoneb) 3 ml AEROSOL PRN PRN Last Admin: 07/18/17 07:17 Dose: 3 ml Amlodipine Besylate (Norvasc) 5 mg PO DAILY [facility] Last Admin: 07/19/17 09:28 Dose: 5 mg Aspirin (Ecotrin) 81 mg PO DAILY [facility] Last Admin: 07/19/17 10:51 Dose: 81 mg Atorvastatin Calcium (Lipitor) 10 mg PO HS [facility] Last Admin: 07/18/17 21:58 Dose: 10 mg Budesonide (Pulmicort Inhalation) 0.5 mg AEROSOL RTBID [facility] Last Admin: 07/19/17 07:57 Dose: 0.5 mg Docusate Sodium (Colace) 100 mg PO BID [facility] Last Admin: 07/19/17 09:29 Dose: 100 mg Ibuprofen (Motrin) 400 - 800 mg PO Q6H PRN PRN Reason: Pain Last Admin: 07/17/17 19:43 Dose: 800 mg Morphine Sulfate (Morphine Sulfate Inj) 2 - 5 mg IV Q1H PRN PRN Reason: Pain Last Admin: 07/19/17 08:02 Dose: 5 mg Ondansetron HCl (Zofran) 4 - 8 mg IVP Q6H PRN PRN Reason: Nausea &/or vomiting Oxycodone HCl (Roxicodone *Ir*) 5 - 10 mg PO Q3H PRN PRN Reason: Pain Last Admin: 07/18/17 02:15 Dose: 10 mg Pantoprazole Sodium (Protonix Tab) 40 mg PO ACB [facility] Last Admin: 07/19/17 06:02 Dose: Not Given Promethazine HCl (Phenergan Inj) 12.5 - 25 mg IVP Q6H PRN PRN Reason: Nausea &/or vomiting Roflumilast (Daliresp) 500 mcg PO DAILY [facility] Last Admin: 07/19/17 09:29 Dose: 500 mcg Sodium Chloride (Iv Flush) 10 - 80 ml IVF PRN PRN PRN Reason: Flushing Last Admin: 07/18/17 15:40 Dose: 10 ml Tamsulosin HCl (Flomax) 0.4 mg PO HS [facility] Last Admin: 07/18/17 22:04 Dose: Not Given <Jennyfer Parrish - 07/19/17 11:52> - Urinary Catheter Management Straight Cath placed during this visit: no <Zurdo Miller - 07/20/17 13:30> yes, but has since been removed by the nurse <Jennyfer Parrish - 07/20/17 12:02> Insertion date: 07/18/17 <Jennyfer Parrish - 07/19/17 11:52> Insertion time: 19:42 <Jennyfer Parrish - 07/19/17 11:52> Removal date: 07/18/17 <Jennyfer Parrish - 07/19/17 11:52> Removal time: 05:37 <Jennyfer Parrish - 07/19/17 11:52> Progress Note-A&P (1) Chest pain Status: Acute Current Visit: Yes (2) S/P cholecystectomy Status: Acute Current Visit: Yes (3) Dyspnea Status: Acute Current Visit: Yes (4) COPD (chronic obstructive pulmonary disease) Status: Chronic Current Visit: Yes (5) HTN (hypertension) Status: Chronic Current Visit: Yes (6) Hyperlipidemia Status: Chronic Current Visit: Yes <Zurdo Miller - 07/20/17 13:30> (1) Chest pain Status: Acute Assessment and plan: Improved today. - Serial troponins negative. - Small left pneumothorax, extensive subcutaneous emphysema and pleural effusions seen on CTA, no PE. Current Visit: Yes (2) Dyspnea Status: Acute Assessment and plan: On high flow O2 at 10L Current Visit: Yes (3) S/P cholecystectomy Status: Acute Current Visit: Yes (4) HTN (hypertension) Status: Chronic Current Visit: Yes (5) COPD (chronic obstructive pulmonary disease) Status: Chronic Current Visit: Yes (6) Hyperlipidemia Status: Chronic Current Visit: Yes <Jennyfer Parrish - 07/20/17 11:59> - Time Spent With Patient Total time spent is greater than 50% in coordination of care (as documented) at patient's floor/unit and/or counseling patient: <Zurdo Miller - 07/20/17 13:30> Total time spent is greater than 50% in coordination of care (as documented) at patient's floor/unit and/or counseling patient: <Jennyfer Parrish - 07/19/17 11:52> less than 15 minutes <Jennyfer Parrish - 07/20/17 12:02> - Attestation Attestation Narrative: Recommendation After examining the patient I agree with the above assessment. I am involved in the formulation of the patient's plan of care. <Zurdo Miller - 07/20/17 13:30> Sepsis Assessment - Evaluation Sepsis screening result: No Definite Risk <Jennyfer Parrish 07/19/17 11:52> Hospital Course Summary Disclaimer: The visit summary below is not to be considered part of the above Progress Note. <Zurdo Miller - 07/20/17 13:30> The visit summary below is not to be considered part of the above Progress Note. <Jennyfer Parrish - 07/19/17 11:52> Hospital Course: 07/18/17 Plan Continue postoperative care as per Dr. Vick In light of acute chest pain, increased dyspnea and increased oxygen demands Ordered a serum troponin to be ran on this morning 6 a.m. lab draw. Will also obtain serial troponins every 6 hours 3. Given findings of moderate pericardial effusion from CT scan in May. Will obtain an echocardiogram for further cardiac evaluation. On her patient. Cardiac telemetry. Consultation placed for Dr. Miller evaluation and recommendations. Continue with scheduled DuoNeb 4 times a day, will add Pulmicort twice a day. Patient did have urinary retention overnight and is now requiring Nathan catheter Requiring to 3 liters of oxygen by nasal cannula. Routinely patient does use home oxygen at nighttime only. We will work on weaning down oxygen. Encourage use of incentive spirometry Resume home Daliresp dose Obtain daily weight Protonix 40 millirems daily for GI protection Morphine for pain control Will discuss further order and plan of care with attending Dr Aguirre Appreciate medical consultation At time of discharge medical care is to return to PCP Dr Cunha. 07/18/17 Cardiology Chest pain: - not likely cardiac etiology, pain is worse with inspiration. - Trend serial troponin levels, Repeat EKG in 6 hours. - CTA to rule out PE as is hypoxic. - Aspirin 81mg daily - Continue home Amlodipine and Atorvastatin Thank you for allowing us to participate in the care of this patient, we will follow along with you. 07/19/17 Chest pain improved today. - Serial troponins negative. - Small left pneumothorax, extensive subcutaneous emphysema and pleural effusions seen on CTA, no PE. <Jennyfer Parrish - 07/20/17 12:02>
--- NOTE | 2017-07-19 19:33 | Progress Note ---
DATE 07/19/2017 HISTORY The patient was seen in consultation yesterday evening by Dr. Alcala regarding the urinary retention. Dr. Alcala did direct the nurses to place an indwelling Nathan catheter in the patient. The patient did have a chronic history of severe prostatism. The patient does have postoperative urinary retention at this time. Dr. Alcala did start the patient on treatment with Tamsulosin 0.4 mg at bedtime daily. He will plan to leave the indwelling Nathan catheter in place for at least a week and then give the patient a voiding trial. The patient did have BiPAP stopped yesterday since it was thought that this might worsen the pneumothorax. The patient was started on high-flow oxygen therapy by Dr. Aguirre to help with resolution of the pneumothorax. The patient has less left chest pain today. He continues to have significant shortness of breath. The patient has some cough and congestion. He has shortness of air with any activity. The patient appears to have shallow breathing. The patient was given some intravenous Lasix today. High-flow oxygen is being continued to help the pneumothorax resolve. The patient continues to receive incentive spirometry and respiratory therapy treatments. Physical Therapy and Occupational Therapy have been consulted to help the patient. The patient has been seen by Dr. Aguirre. The patient has been seen by Jennyfer Parrish APRN from the cardiology service. PHYSICAL EXAMINATION VITAL SIGNS: Temperature is 97.3 degrees Fahrenheit oral. Pulse is 91. Respiratory rate is 22. Blood pressure is 114/69. Oxygen saturation is 94% on high-flow oxygen. CHEST: The patient does have some bilateral wheezes. ABDOMEN: The abdominal incisions all look good. The abdomen is soft and nondistended. LABORATORY DATA The white blood cell count is 7200 with no bands. Hemoglobin is 12.6. Hematocrit is 38. Serum sodium is 139. Serum potassium is 4.1. Serum creatinine is 0.5. IMAGING DATA The patient did have an upright chest x-ray performed this morning. This shows a tiny left apical pneumothorax which appears to be smaller than it was yesterday. It is noted on the chest x-ray that there is considerably less subcutaneous emphysema at the neck. The patient again appears to have a small left pleural effusion and left lower lobe atelectasis. IMPRESSION 1. Status post multiport robotic laparoscopic cholecystectomy on 07/17/2017. 2. Small left apical pneumothorax which appears to be resolving. 3. Pneumomediastinum demonstrated on chest CT angiography on 07/18/2017. 4. Subcutaneous emphysema which is resolving. 5. Acute left chest pain. This is probably due to the small apical left pneumothorax. This appears to be noncardiac left chest pain. 6. Acute dyspnea. Some of this is probably associated with the severe underlying chronic obstructive pulmonary disease and emphysema which this patient has. 7. Chronic obstructive pulmonary disease with history of dependence on nocturnal oxygen therapy at home preoperatively. 8. Left lower lobe pulmonary atelectasis. 9. Small left pleural effusion. 10. Postoperative urinary retention. 11. Small left pericardial effusion demonstrated on echocardiogram on 2016. 12. Mild mitral regurgitation and moderate tricuspid regurgitation demonstrated on echocardiogram on 07/18/2017. PLAN 1. Continue postoperative care of the abdomen by Dr. Vick. 2. Continue medical care by the hospitalist service. 3. Continue cardiac care by Dr. Miller. 4. Continue management of postoperative urinary retention by Dr. Alcala. 5. Continue incentive spirometry, respiratory therapy treatments and oxygen administration. 6. Continue sequential compression devices for deep venous thrombosis prophylaxis. 7. Continue Protonix for GI protection. 8. Recheck chest x-ray tomorrow to monitor the status of the small apical left pneumothorax. 9. Physical Therapy, Occupational therapy consultation. MTDD
[2017-07-19] MEDS: Oxycodone *IR* 5 MG TABLET PO PRN (19:47)
[2017-07-19] MEDS: TAMSULOSIN 0.4 MG CAPSULE PO SCH (21:25)
[2017-07-19] MEDS: ATORVASTATIN 10 MG TABLET PO SCH (21:25)
[2017-07-20] MEDS: MORPHINE SULFATE 10 MG SYRINGE IV PRN ×5 (02:10→20:49)
[2017-07-20] MEDS: Oxycodone *IR* 5 MG TABLET PO PRN ×4 (02:10→20:44)
[2017-07-20] MEDS: PANTOPRAZOLE 40 MG TABLET PO SCH (05:37)
[2017-07-20] MEDS: ALBUTEROL/IPRATROPIUM 2.5mg-0.5mg/3ml NEB AEROSOL SCH ×4 (07:07→18:55)
[2017-07-20] MEDS: BUDESONIDE INH.SOLN 0.5mg/2ml NEB AEROSOL SCH ×2 (07:07→18:55)
[2017-07-20] MEDS: SALINE FLUSH 10ml SYRINGE IVF PRN ×3 (07:46→16:31)
--- NOTE | 2017-07-20 08:06 | XRay Report ---
INDICATION: F/U pneumothorax PROCEDURE: CHEST 2-VIEWS UPRIGHT (PA & LAT) Encounter: Initial COMPARISON: July 19, 2017 FINDINGS: Trace left apical pneumothorax has decreased in size and nearly resolved. Aeration of the left lower lobe has improved with small bilateral pleural effusions. Emphysema. Subcutaneous emphysema in the neck continues to decrease. Calcified granuloma in the right upper lobe. Areas of scarring in the right midlung. Heart size and mediastinal contours are stable. Right hilar area surgical clips. Impression: Continued decrease in left apical pneumothorax which is nearly completely resolved. Small effusions. .
[2017-07-20] MEDS: AMLODIPINE 5 MG TABLET PO SCH (09:59)
[2017-07-20] MEDS: ASPIRIN *EC* 81 MG TABLET PO SCH (10:00)
[2017-07-20] MEDS: DOCUSATE SODIUM 100 MG CAPSULE PO SCH ×2 (10:00→20:43)
[2017-07-20] MEDS: ROFLUMILAST 500 MCG TABLET PO SCH (10:01)
--- NOTE | 2017-07-20 10:13 | Progress Note ---
<Soledad Licea V - Last Filed: 07/20/17 10:10> Subjective: Dk is seen today in follow up. He continues to require oxygen at 6 L by nasal canula. Nursing staff report that he does often attempt to get out of bed without assistance. He ambulated to the bathroom this morning and became significantly short of breath. Denies having any Chest or abdominal pain. Nathan cath remains intact and is draining well. No bowel movements since surgery. Objective Vital signs: Temperature 97.9 F 07/20/17 07:54 Pulse Rate 97 07/20/17 07:54 Respiratory Rate 16 07/20/17 07:54 Blood Pressure 117/67 07/20/17 07:54 Pulse Oximetry 97 07/20/17 07:54 Height/Weight/BMI: Height 1.8 m Weight 75 kg Body Mass Index 23.1 - Constitutional Present: no acute distress, well nourished, well developed - Routine HEENT Exam Eye: Present: EOMI ENT: Present: mucous membranes moist, dentition normal - Routine Respiratory Exam Present: diminished air movement (Bilaterally). Absent: wheezes - Routine Cardiovascular Exam Present: RRR, S1, S2. Absent: murmur - Routine Abdominal Exam Present: soft, normoactive bowel sounds, non distended, surgical scars (healing well without erythema or drainage). Absent: tenderness - Routine Extremities Exam Present: normal capillary refill - Routine Back/Spine/Pelvis Exam Back/Spine: Present: full ROM - Routine Skin Exam Present: intact, dry, warm - Routine Neurological Exam Present: alert, oriented X3, CN II-XII intact, moving all extremities - Routine Lymphatic Exam Lymphatic: Absent: adenopathy - Routine Psychiatric Exam Present: normal affect, normal thought process Results - Labs CBC & Chem 7: 07/20/17 04:32 07/20/17 04:32 Assessment and Plan (1) Chest pain Current visit: Yes Status: Acute (2) Dyspnea Current visit: Yes Status: Acute (3) S/P cholecystectomy Current visit: Yes Status: Acute (4) COPD (chronic obstructive pulmonary disease) Current visit: Yes Status: Chronic (5) HTN (hypertension) Current visit: Yes Status: Chronic (6) Recent weight loss Current visit: Yes Status: Acute (7) GERD (gastroesophageal reflux disease) Current visit: Yes Status: Chronic (8) Dependence on nocturnal oxygen therapy Current visit: Yes Status: Chronic (9) Hyperlipidemia Current visit: Yes Status: Chronic Assessment and Plan: Assessment Chest pain Dyspnea Small left pneumothorax Left subcutaneous emphysema S/P cholecystectomy COPD (chronic obstructive pulmonary disease) HTN (hypertension) Recent weight loss GERD (gastroesophageal reflux disease) Hyperlipidemia Dependence on nocturnal oxygen therapy Acute urinary retention Plan Will place consultation to Dr Simpson for pulmonary evaluation and recommendations given ongoing hypoxia. X-ray this morning did reveal almost complete resolution of pneumothorax, continued subcutaneous emphysema throughout the neck, however, appears to be improving. Consultation with Dr Alcala for urinary retention. He did start patient on Flomax at at bedtime. He recommended Nathan catheter for approximately 1 week prior to voiding trial. Labs reviewed. Case discussed with attending, Dr Aguirre Sepsis Assessment - Evaluation Sepsis screening result: No Definite Risk Hospital Course Summary Disclaimer: The visit summary below is not to be considered part of the above Progress Note. Hospital Course: 07/18/17 Plan Continue postoperative care as per Dr. Vick In light of acute chest pain, increased dyspnea and increased oxygen demands Ordered a serum troponin to be ran on this morning 6 a.m. lab draw. Will also obtain serial troponins every 6 hours 3. Given findings of moderate pericardial effusion from CT scan in May. Will obtain an echocardiogram for further cardiac evaluation. On her patient. Cardiac telemetry. Consultation placed for Dr. Miller evaluation and recommendations. Continue with scheduled DuoNeb 4 times a day, will add Pulmicort twice a day. Patient did have urinary retention overnight and is now requiring Nathan catheter Requiring to 3 liters of oxygen by nasal cannula. Routinely patient does use home oxygen at nighttime only. We will work on weaning down oxygen. Encourage use of incentive spirometry Resume home Daliresp dose Obtain daily weight Protonix 40 millirems daily for GI protection Morphine for pain control Will discuss further order and plan of care with attending Dr Aguirre Appreciate medical consultation At time of discharge medical care is to return to PCP Dr Cunha. 07/18/17 Cardiology Chest pain: - not likely cardiac etiology, pain is worse with inspiration. - Trend serial troponin levels, Repeat EKG in 6 hours. - CTA to rule out PE as is hypoxic. - Aspirin 81mg daily - Continue home Amlodipine and Atorvastatin Thank you for allowing us to participate in the care of this patient, we will follow along with you. 07/20/[address] consultation to Dr Simpson for pulmonary evaluation and recommendations given ongoing hypoxia. X-ray this morning did reveal almost complete resolution of pneumothorax, continued subcutaneous emphysema throughout the neck, however, appears to be improving. Consultation with Dr Alcala for urinary retention. He did start patient on Flomax at at bedtime. He recommended Nathan catheter for approximately 1 week prior to voiding trial. Labs reviewed. Case discussed with attending, Dr Aguirre <Jose Aguirre - Last Filed: 07/20/17 13:43> Objective Vital signs: Temperature 98.1 F 07/20/17 12:00 Pulse Rate 105 H 07/20/17 12:00 Respiratory Rate 24 07/20/17 12:00 Blood Pressure 130/75 07/20/17 12:00 Pulse Oximetry 95 07/20/17 12:00 Height/Weight/BMI: Height 1.8 m Weight 75.5 kg Body Mass Index 23.1 Results - Labs CBC & Chem 7: 07/20/17 04:32 07/20/17 04:32 Assessment and Plan (1) Chest pain Current visit: Yes Status: Acute (2) S/P cholecystectomy Current visit: Yes Status: Acute (3) Dyspnea Current visit: Yes Status: Acute (4) COPD (chronic obstructive pulmonary disease) Current visit: Yes Status: Chronic (5) HTN (hypertension) Current visit: Yes Status: Chronic (6) GERD (gastroesophageal reflux disease) Current visit: Yes Status: Chronic (7) Recent weight loss Current visit: Yes Status: Acute (8) Dependence on nocturnal oxygen therapy Current visit: Yes Status: Chronic (9) Hyperlipidemia Current visit: Yes Status: Chronic DVT Prophylaxis: SCD's Resuscitation Status: Full Code Assessment and Plan: Assessment Chest pain - secondary to pneumothorax and pneumomediastinum Dyspnea Small left pneumothorax Left subcutaneous emphysema S/P cholecystectomy COPD (chronic obstructive pulmonary disease) HTN (hypertension) Recent weight loss GERD (gastroesophageal reflux disease) Hyperlipidemia Dependence on nocturnal oxygen therapy Acute urinary retention Have independently interviewed and examined pt. Chart reviewed. Case discussed with Dr Vick and my [employer]. Care plan developed with my supervision; agree with above. Doing better today-still notes some pain to chest (about the same), increase with deep breathing. Is using IS hourly. Less SOA. Ab pain decreased. No nausea , but feels some constipation. No f/c. Lungs: decreased, diminished air movement CV: regular AB: soft nt/nd BS decreased MSE: awake alert appropriate Plan: Wean O2 as able - uses only at night prior to admission; ? patient may need continuous O2 due to his lung disease. Continue Neb treatments and IS. Recheck CXR in am - pneumothorax gradually decreasing. Add prn Miralax, and Dulolax to help constipation. Dr Alcala recommending Flomax and Nathan decompression for 1 week before attempting voiding trials/removal. Increase activities as able. Time spent with patent care 25 minutes. - Time spent with patient 25 - 35 minutes Hospital Course Summary Disclaimer: The visit summary below is not to be considered part of the above Progress Note.
[2017-07-20] MEDS: POLYETHYL GLYCOL 3350 17gm PACKET PO SCH (10:32)
--- NOTE | 2017-07-20 12:09 | Cardiology Progress Note ---
Subjective Principal diagnosis: chest pain, dyspnea <Jennyfer Parrish 07/20/17 12:09> Interval history: Herman is seen in follow up for chest pain in his room on Surgical. He denies chest pain or pressure, is currently on 4L/NC. <Jennyfer Parrish 07/20/17 17:32> Exam Vital signs: Temperature 97.4 F 07/22/17 08:49 Pulse Rate 91 07/22/17 12:44 Respiratory Rate 12 07/22/17 11:32 Blood Pressure 109/69 07/22/17 12:44 Pulse Oximetry 89 L 07/22/17 12:41 <Zurdo Miller - 07/26/17 16:39> Temperature 97.9 F 07/20/17 07:54 Pulse Rate 99 07/20/17 10:00 Respiratory Rate 24 07/20/17 11:05 Blood Pressure 117/67 07/20/17 07:54 Pulse Oximetry 98 07/20/17 11:05 <Jennyfer Parrish 07/20/17 12:09> - Constitutional mild distress, well nourished, well developed, cooperative <Jennyfer Parrish 07/20/17 12:16> - Routine HEENT Exam Head: Present: normocephalic <Jennyfer Parrish 07/20/17 12:16> ENT: Present: mucous membranes moist <Jennyfer Parrish 07/20/17 12:16> - Routine Neck Exam Absent: JVD, carotid bruit <Jennyfer Parrish 07/20/17 12:16> - Routine Chest/Breast/Axilla Exam Chest wall: Absent: tenderness <Jennyfer Parrish 07/20/17 12:16> - Routine Respiratory Exam Present: CTA bilaterally, diminished air movement. Absent: wheezes <Jennyfer Parrish 07/20/17 12:16> - Routine Cardiovascular Exam Present: RRR, no murmur. Absent: JVD <Jennyfer Parrish 07/20/17 12:16> - Routine Abdominal Exam Present: soft, normoactive bowel sounds <Jennyfer Parrish 07/20/17 12:16> - Routine Extremities Exam Present: no edema <Jennyfer Parrish 07/20/17 12:16> - Routine Skin Exam Present: intact, dry, warm <Jennyfer Parrish - 07/20/17 12:16> - Routine Neurological Exam Present: alert, oriented X3 <Jennyfer Parrish - 07/20/17 12:16> - Routine Psychiatric Exam Present: normal affect, normal thought process <Jennyfer Parrish - 07/20/17 12: 16> - Additional findings Additional findings: Laboratory Results - last 48 hr 07/18/17 07/18/17 07/19/17 13:03 19:16 04:27 WBC 7.2 D RBC 4.03 L Hgb 12.6 L Hct 38.0 L MCV 94.3 MCH 31.3 MCHC 33.2 RDW Std Deviation 50.5 H Plt Count 181 MPV 9.9 Immature Gran % (Auto) 0.1 Neut % (Auto) 72.8 H Lymph % (Auto) 15.0 L [place] % (Auto) 10.4 H Eos % (Auto) 1.4 Baso % (Auto) 0.3 Neut # 5.3 Lymph # 1.1 [place] # 0.8 Eos # 0.1 Baso # 0.0 Abs Immat Gran (auto) 0.01 Turbidity Sodium Potassium Chloride Carbon Dioxide Anion Gap BUN Creatinine GFR Calculation BUN/Creatinine Ratio Glucose Calculated Osmolality Calcium Magnesium Total Bilirubin Icterus Index AST ALT Alkaline Phosphatase Troponin I 0.052 D 0.050 Total Protein Albumin Globulin Albumin/Globulin Ratio Specimen Hemolysis < 15 < 15 07/19/17 07/20/17 07/20/17 04:27 04:32 04:32 WBC 6.7 RBC 4.62 Hgb 14.3 D Hct 43.5 D MCV 94.2 MCH 31.0 MCHC 32.9 RDW Std Deviation 49.3 Plt Count 209 MPV 10.4 Immature Gran % (Auto) 0.0 Neut % (Auto) 69.5 H Lymph % (Auto) 16.6 L [place] % (Auto) 10.5 H Eos % (Auto) 3.3 Baso % (Auto) 0.1 Neut # 4.6 Lymph # 1.1 [place] # 0.7 Eos # 0.2 Baso # 0.0 Abs Immat Gran (auto) 0.00 Turbidity < 20 < 20 Sodium 139 140 Potassium 4.1 D 3.7 Chloride 102 99 Carbon Dioxide 30 30 Anion Gap 7 11 BUN 10.0 14.0 Creatinine 0.5 L 0.6 L GFR Calculation 164 133 BUN/Creatinine Ratio 20 23 Glucose 96 113 H Calculated Osmolality 267 271 Calcium 9.0 D 9.5 Magnesium 1.8 Total Bilirubin 1.00 Icterus Index < 2 < 2 AST 16 L ALT 31 Alkaline Phosphatase 64 Troponin I Total Protein 6.0 L Albumin 3.5 Globulin 2.5 Albumin/Globulin Ratio 1.4 Specimen Hemolysis < 15 18 Acetaminophen (Tylenol) 500 - 1,000 mg PO Q6H PRN PRN Reason: Discomfort Last Admin: 07/18/17 04:20 Dose: 1,000 mg Albuterol/Ipratropium (Duoneb) 3 ml AEROSOL PRN PRN Last Admin: 07/18/17 07:17 Dose: 3 ml Albuterol/Ipratropium (Duoneb) 3 ml AEROSOL RTQID ADRIEL Last Admin: 07/20/17 07:07 Dose: 3 ml Amlodipine Besylate (Norvasc) 5 mg PO DAILY [facility] Last Admin: 07/20/17 09:59 Dose: 5 mg Aspirin (Ecotrin) 81 mg PO DAILY [facility] Last Admin: 07/20/17 10:00 Dose: 81 mg Atorvastatin Calcium (Lipitor) 10 mg PO HS [facility] Last Admin: 07/19/17 21:25 Dose: 10 mg Budesonide (Pulmicort Inhalation) 0.5 mg AEROSOL RTBID [facility] Last Admin: 07/20/17 07:07 Dose: 0.5 mg Docusate Sodium (Colace) 100 mg PO BID [facility] Last Admin: 07/20/17 10:00 Dose: 100 mg Ibuprofen (Motrin) 400 - 800 mg PO Q6H PRN PRN Reason: Pain Last Admin: 07/17/17 19:43 Dose: 800 mg Magnesium Hydroxide (Mom) 30 ml PO DAILY PRN PRN Reason: Constipation Last Admin: 07/20/17 10:32 Dose: 30 ml Morphine Sulfate (Morphine Sulfate Inj) 2 - 5 mg IV Q1H PRN PRN Reason: Pain Last Admin: 07/20/17 07:46 Dose: 5 mg Ondansetron HCl (Zofran) 4 - 8 mg IVP Q6H PRN PRN Reason: Nausea &/or vomiting Oxycodone HCl (Roxicodone *Ir*) 5 - 10 mg PO Q3H PRN PRN Reason: Pain Last Admin: 07/20/17 10:12 Dose: 10 mg Pantoprazole Sodium (Protonix Tab) 40 mg PO ACB [facility] Last Admin: 07/20/17 05:37 Dose: 40 mg Polyethylene Glycol (Miralax) 17 gm PO DAILY [facility] Last Admin: 07/20/17 10:32 Dose: 17 gm Promethazine HCl (Phenergan Inj) 12.5 - 25 mg IVP Q6H PRN PRN Reason: Nausea &/or vomiting Roflumilast (Daliresp) 500 mcg PO DAILY [facility] Last Admin: 07/20/17 10:01 Dose: 500 mcg Sodium Chloride (Iv Flush) 10 - 80 ml IVF PRN PRN PRN Reason: Flushing Last Admin: 07/20/17 07:46 Dose: 10 ml Tamsulosin HCl (Flomax) 0.4 mg PO HS [facility] Last Admin: 07/19/17 21:25 Dose: 0.4 mg <Jennyfer Parrish - 07/20/17 12:16> - Urinary Catheter Management 2-way Urethral Cath placed during this visit: no <Zurdo Miller - 07/26/17 16:39> yes <Jennyfer Parrish - 07/25/17 16:00> Insertion date: 07/18/17 <Jennyfer Parrish 07/25/17 16:00> Straight Cath placed during this visit: no <Zurdo Miller - 07/26/17 16:39> yes, but has since been removed by the nurse <Jennyfer Parrish - 07/25/17 16:00> Insertion date: 07/18/17 <Jennyfer Parrish 07/20/17 12:09> Insertion time: 19:42 <Jennyfer Parrish 07/20/17 12:09> Removal date: 07/18/17 <Jennyfer Parrish 07/20/17 12:09> Removal time: 05:37 <Jennyfer Parrish 07/20/17 12:09> Progress Note-A&P (1) Chest pain Status: Acute (2) S/P cholecystectomy Status: Acute (3) Dyspnea Status: Acute (4) COPD (chronic obstructive pulmonary disease) Problem details: Nocturnal O2 prior to admission Status: Chronic (5) HTN (hypertension) Status: Chronic (6) Hyperlipidemia Status: Chronic (7) Nonsustained ventricular tachycardia Status: Acute <Zurdo Miller 07/26/17 16:39> (1) Chest pain Status: Acute Assessment and plan: Chest pain resolved. Pneumothorax nearly resolved. (2) Dyspnea Status: Acute Assessment and plan: On high flow O2 at 10L (3) S/P cholecystectomy Status: Acute (4) HTN (hypertension) Status: Chronic (5) Hyperlipidemia Status: Chronic (6) COPD (chronic obstructive pulmonary disease) Problem details: Nocturnal O2 prior to admission Status: Chronic (7) Nonsustained ventricular tachycardia Status: Acute Assessment and plan: Start Metoprolol 25mg po BID <Jennyfer Parrish 07/25/17 16:00> - Time Spent With Patient Total time spent is greater than 50% in coordination of care (as documented) at patient's floor/unit and/or counseling patient: <Zurdo Miller 07/26/17 16:39> Total time spent is greater than 50% in coordination of care (as documented) at patient's floor/unit and/or counseling patient: <Jennyfer Parrish 07/20/17 12:09> less than 15 minutes <Jennyfer Parrish 07/25/17 16:00> - Attestation Attestation Narrative: Recommendation After examining the patient I agree with the above assessment. I am involved in the formulation of the patient's plan of care. <Zurdo Miller 07/26/17 16:39> Sepsis Assessment - Evaluation Sepsis screening result: No Definite Risk <Jennyfer Parrish 07/20/17 12:09> Hospital Course Summary Disclaimer: The visit summary below is not to be considered part of the above Progress Note. <Zurdo Miller 07/26/17 16:39> The visit summary below is not to be considered part of the above Progress Note. <Jennyfer Parrish 07/20/17 12:09> Hospital Course: 07/18/17 Plan Continue postoperative care as per Dr. Vick In light of acute chest pain, increased dyspnea and increased oxygen demands Ordered a serum troponin to be ran on this morning 6 a.m. lab draw. Will also obtain serial troponins every 6 hours 3. Given findings of moderate pericardial effusion from CT scan in May. Will obtain an echocardiogram for further cardiac evaluation. On her patient. Cardiac telemetry. Consultation placed for Dr. Miller evaluation and recommendations. Continue with scheduled DuoNeb 4 times a day, will add Pulmicort twice a day. Patient did have urinary retention overnight and is now requiring Nathan catheter Requiring to 3 liters of oxygen by nasal cannula. Routinely patient does use home oxygen at nighttime only. We will work on weaning down oxygen. Encourage use of incentive spirometry Resume home Daliresp dose Obtain daily weight Protonix 40 millirems daily for GI protection Morphine for pain control Will discuss further order and plan of care with attending Dr Aguirre Appreciate medical consultation At time of discharge medical care is to return to PCP Dr Cunha. 07/18/17 Cardiology Chest pain: - not likely cardiac etiology, pain is worse with inspiration. - Trend serial troponin levels, Repeat EKG in 6 hours. - CTA to rule out PE as is hypoxic. - Aspirin 81mg daily - Continue home Amlodipine and Atorvastatin Thank you for allowing us to participate in the care of this patient, we will follow along with you. 07/19/17 Chest pain improved today. - Serial troponins negative. - Small left pneumothorax, extensive subcutaneous emphysema and pleural effusions seen on CTA, no PE. 07/20/17 Start Metoprolol 25mg po BID <Jennyfer Parrish - 07/20/17 17:32>
--- NOTE | 2017-07-20 13:23 | Pulmonology Consult Note ---
<Tisha Linares - Last Filed: 07/20/17 13:45> History of Present Illness Consult date: 07/20/17 Requesting physician: Jose Aguirre Reason for consult: COPD, pneumothorax Chief complaint: SOB, CP History of present illness: This is a 71 yo male with a Hx of COPD, previous lobectomy for lung ca and on O2 at 2L per NC at [facility]. Does see us in clinic. Apparently was admitted for an elective cholecystectomy 07/17/[address] Vick. He tolerated the procedure well but developed some urinary retention of over 1 liter and had a burton cath placed. He was started on bipap 2/2 SOB and felt better on it at [facility], by am he was requiring 3 liters of oxygen and also complained of having acute left anterior chest pain. EKG showed sinus tachycardia and Cardiology was consulted. He did also have a CXR that showed a L apical PTX with sq air. He has requiring up to 10L per NC and has last used the bipap yesterday for his SOB. Currently complains of SOB more noted with activity. CXR today shows almost complete resolution of his PTX with improving Sq air. We have been consulted for his pulmonary issues and appreciate the consult. Review of Systems - Constitutional Constitutional: Present: as per HPI - EENT Mouth/Throat: Present: mucosa moist, poor dentition - Cardiovascular Cardiovascular: Present: chest pain, dyspnea on exertion - Respiratory Respiratory: Present: as per HPI - Gastrointestinal Gastrointestinal: Present: as per HPI - Genitourinary Genitourinary: Present: as per HPI - Musculoskeletal Musculoskeletal: Present: as per HPI - Neurological Neurological: Present: as per HPI - Psychiatric Psychiatric: Present: as per HPI - Endocrine Endocrine: Present: as per HPI - Hematologic/Lymphatic Hematologic/Lymphatic: Present: as per HPI - Allergic/Immunologic Allergic/Immunologic: Present: as per HPI PFS Patient Stated Medical History Cerebrovascular Accident No Paralysis No Seizures No Syncope No Angina No Cardiac Arrhythmia No Congestive Heart Failure No Coronary Artery Disease No Heart Murmur No Hypertension Yes Hypotension No Myocardial Infarction No Rheumatic Fever No Valvular Heart Disease No Other Cardiology No Asthma No Bronchitis No Chronic Obstructive Pulmonary Yes Disease (COPD) Pneumonia No Pulmonary Edema No Pulmonary Embolism No Sleep Apnea No Tuberculosis No Other Respiratory Yes: lung disease, lung Ca hx with right lobectomy, home O2 Diabetes Mellitus Type 1 No Diabetes Mellitus Type 2 No Gastroesophageal Reflux Yes: well controlled Disease Other GI Yes: weight loss Osteoarthritis No Other Musculoskeletal No Anesthesia Reactions No Blood Transfusions No Chemotherapy No Malignant Hyperthermia No Other Yes: right lower lobectomy Depression No Now No Clinic Medical History (Last Reviewed 06/21/17 @ 10:51 by Shelia Mistry MA) GERD (gastroesophageal reflux disease) (Chronic Medical) HLD (hyperlipidemia) (Chronic Medical) HTN (hypertension) (Chronic Medical) Lung cancer (Chronic Medical) Pneumonia (Chronic Medical) Surgical History: 1. Appendectomy as a child at [place], [place]. 2. Tonsillectomy as a child at [place], [place]. 3. Right total knee replacement operation in 2008 or 2009 at [facility] at [place], [place]. 4. Thoracotomy with right lower lobectomy in [address] Zavala at [facility] at [place], [place]. This was performed for treatment of lung carcinoma. 5. Repair of umbilical hernia with resection of umbilicus in 2010 or 2011 at [facility] at [place], [place]. 6. Esophagogastroduodenoscopy with biopsies and total colonoscopy with biopsies on 07/03/[address] Vick at [facility] at [place], [place]. One postoperative diagnosis was gastroesophageal reflux disease. Another postoperative diagnosis was small sliding hiatal hernia. - Social History Smoking status: Former smoker Substance use type: does not use Alcohol intake frequency: does not drink Housing: house Does patient use chewing tobacco?: No Current residence: Apartment/Private Home Medications Allergies Allergy/AdvReac Type Severity Reaction Status Date / Time latex AdvReac blisters Verified 07/17/17 06:03 Exam Vital signs: Temperature 98.1 F 07/20/17 12:00 Pulse Rate 105 H 07/20/17 12:00 Respiratory Rate 24 07/20/17 12:00 Blood Pressure 130/75 07/20/17 12:00 Pulse Oximetry 95 07/20/17 12:00 - Constitutional no acute distress, well nourished - Routine HEENT Exam Head: Present: normocephalic, atraumatic Eye: Present: EOMI, PERRL ENT: Present: mucous membranes moist - Routine Neck Exam Present: supple, full ROM - Routine Chest/Breast/Axilla Exam Comments: Sq air to upper chest/neck area, very minimal. - Routine Respiratory Exam Present: decreased breath sounds - Routine Cardiovascular Exam Present: RRR, no murmur - Routine Abdominal Exam Present: soft, normoactive bowel sounds - Routine Extremities Exam Present: no edema, full ROM - Routine Back/Spine/Pelvis Exam Back/Spine: Present: full ROM - Routine Skin Exam Present: intact, dry - Routine Neurological Exam Present: alert, oriented X3, CN II-XII intact - Routine Psychiatric Exam Present: normal affect, normal thought process Results - Laboratory Findings CBC and BMP: 07/20/17 04:32 07/20/17 04:32 Abnormal lab findings: Abnormal Labs 07/17/17 07/17/17 07/18/17 07:03 07:03 06:21 WBC 13.9 H D RBC 4.37 L 4.37 L Hgb Hct 40.6 L 40.0 L RDW Std Deviation Plt Count 105 L MPV 9.2 L Neut % (Auto) 76.8 H Lymph % (Auto) 14.5 L [place] % (Auto) Neut # 10.7 H [place] # 1.1 H Abs Immat Gran (auto) 0.05 H Potassium Chloride 108 H Creatinine 0.7 L Glucose AST Total Protein Specimen Hemolysis 07/18/17 07/19/17 07/19/17 06:24 04:27 04:27 WBC RBC 4.03 L Hgb 12.6 L Hct 38.0 L RDW Std Deviation 50.5 H Plt Count MPV Neut % (Auto) 72.8 H Lymph % (Auto) 15.0 L [place] % (Auto) 10.4 H Neut # [place] # Abs Immat Gran (auto) Potassium 5.1 H D Chloride Creatinine 0.5 L D 0.5 L Glucose AST 16 L Total Protein 6.0 L Specimen Hemolysis 61 H 07/20/17 07/20/17 04:32 04:32 WBC RBC Hgb Hct RDW Std Deviation Plt Count MPV Neut % (Auto) 69.5 H Lymph % (Auto) 16.6 L [place] % (Auto) 10.5 H Neut # [place] # Abs Immat Gran (auto) Potassium Chloride Creatinine 0.6 L Glucose 113 H AST Total Protein Specimen Hemolysis - Diagnostic Findings Chest x-ray: image reviewed CT scan - chest: image reviewed (CXR noted as in HPI) Assessment and Plan (1) Acute respiratory failure with hypoxia Current visit: Yes Status: Acute Pt currently on O2 at 6L per NC and tolerating. Would refrain from using the bipap 2/2 his PTX. Uses O2 at 2L O2 during the noc at home. Did c/o of SOB with ambulation prior to admit and may require O2 with exercise at dismissal. Will need an Exox prior to dismissal. Would wean O2 to keep sats 90-95%. (2) Pneumothorax on left Current visit: Yes Status: Acute As noted on CXR today, minimal Left Apical PTX noted with improving SQ air. No treatment done, resolving on its own. Cont to follow. (3) COPD (chronic obstructive pulmonary disease) Current visit: Yes Status: Chronic Uses [place] daily, advair BID, daliresp daily and ventolin prn at home. Currently on pulmicort BID, a/a QID and daliresp. No wheezing noted. Cont to follow. (4) S/P cholecystectomy Current visit: Yes Status: Acute care per surgery. <Donald Simpson - Last Filed: 07/21/17 12:18> History of Present Illness History of present illness: Denies chest pain. No shortness of breath. He is an active smoker and has daily mucus production which is typically dark yellow. new pneumothorax after cholecystectomy, appears to be improving [facility] Patient Stated Medical History Cerebrovascular Accident No Paralysis No Seizures No Syncope No Angina No Cardiac Arrhythmia No Congestive Heart Failure No Coronary Artery Disease No Heart Murmur No Hypertension Yes Hypotension No Myocardial Infarction No Rheumatic Fever No Valvular Heart Disease No Other Cardiology No Asthma No Bronchitis No Chronic Obstructive Pulmonary Yes Disease (COPD) Pneumonia No Pulmonary Edema No Pulmonary Embolism No Sleep Apnea No Tuberculosis No Other Respiratory Yes: lung disease, lung Ca hx with right lobectomy, home O2 Diabetes Mellitus Type 1 No Diabetes Mellitus Type 2 No Gastroesophageal Reflux Yes: well controlled Disease Other GI Yes: weight loss Osteoarthritis No Other Musculoskeletal No Anesthesia Reactions No Blood Transfusions No Chemotherapy No Malignant Hyperthermia No Other Yes: right lower lobectomy Depression No Now No Clinic Medical History (Last Reviewed 06/21/17 @ 10:51 by Shelia Mistry MA) GERD (gastroesophageal reflux disease) (Chronic Medical) HLD (hyperlipidemia) (Chronic Medical) HTN (hypertension) (Chronic Medical) Lung cancer (Chronic Medical) Pneumonia (Chronic Medical) Exam Vital signs: Temperature 96.8 F 07/21/17 08:07 Pulse Rate 95 07/21/17 08:07 Respiratory Rate 18 07/21/17 10:52 Blood Pressure 114/67 07/21/17 08:07 Pulse Oximetry 95 07/21/17 10:52 Results - Laboratory Findings CBC and BMP: 07/21/17 05:21 07/21/17 05:21 Abnormal lab findings: Abnormal Labs 07/17/17 07/17/17 07/18/17 07:03 07:03 06:21 WBC 13.9 H D RBC 4.37 L 4.37 L Hgb Hct 40.6 L 40.0 L RDW Std Deviation Plt Count 105 L MPV 9.2 L Neut % (Auto) 76.8 H Lymph % (Auto) 14.5 L [place] % (Auto) Eos % (Auto) Neut # 10.7 H [place] # 1.1 H Abs Immat Gran (auto) 0.05 H Potassium Chloride 108 H Carbon Dioxide Creatinine 0.7 L Glucose AST Total Protein Specimen Hemolysis 07/18/17 07/19/17 07/19/17 06:24 04:27 04:27 WBC RBC 4.03 L Hgb 12.6 L Hct 38.0 L RDW Std Deviation 50.5 H Plt Count MPV Neut % (Auto) 72.8 H Lymph % (Auto) 15.0 L [place] % (Auto) 10.4 H Eos % (Auto) Neut # [place] # Abs Immat Gran (auto) Potassium 5.1 H D Chloride Carbon Dioxide Creatinine 0.5 L D 0.5 L Glucose AST 16 L Total Protein 6.0 L Specimen Hemolysis 61 H 07/20/17 07/20/17 07/21/17 04:32 04:32 05:21 WBC RBC 4.24 L Hgb 12.9 L Hct 39.7 L RDW Std Deviation Plt Count MPV Neut % (Auto) 69.5 H Lymph % (Auto) 16.6 L 21.0 L [place] % (Auto) 10.5 H 9.3 H Eos % (Auto) 4.2 H Neut # [place] # Abs Immat Gran (auto) Potassium Chloride Carbon Dioxide Creatinine 0.6 L Glucose 113 H AST Total Protein Specimen Hemolysis 07/21/17 05:21 WBC RBC Hgb Hct RDW Std Deviation Plt Count MPV Neut % (Auto) Lymph % (Auto) [place] % (Auto) Eos % (Auto) Neut # [place] # Abs Immat Gran (auto) Potassium Chloride Carbon Dioxide 33 H Creatinine 0.6 L Glucose AST Total Protein Specimen Hemolysis - Diagnostic Findings Chest x-ray: image reviewed CT scan - chest: image reviewed Assessment and Plan (1) COPD (chronic obstructive pulmonary disease) Current visit: Yes Status: Chronic still smokes. recommend smoking cessation. neb albuterol/ipratropium. continue pulmicort. on dismissal resume home meds. continue O2 to keep sat>90% . may need addition of portable O2 for home use. I will see in the office upon dismissal (2) Pneumothorax on left Current visit: Yes Status: Acute Looks much improved. continue O2 at 2 lpm and ok to dismiss home when stable from surgery standpoint
[2017-07-20] MEDS ORDERED: BISACODYL 10 MG SUPPOSITORY RECTALLY PRN (13:35)
[2017-07-20] MEDS ORDERED: POLYETHYL GLYCOL 3350 17gm PACKET PO PRN (13:35)
--- NOTE | 2017-07-20 15:21 | Progress Note ---
DATE 07/20/2017 HISTORY The patient denies any chest pain today. The patient denies any abdominal pain today. The patient states that his appetite is good and he is eating well. The patient states he feels better today than he has at any day since he was admitted to the hospital. He states he feels much better today than he has the last few days. The patient still is using oxygen at 6 liters per minute by nasal cannula to achieve an oxygen saturation of 95%. He did have a chest x-ray today which shows continued decrease of the very small left apical pneumothorax which is nearly completely resolved at this time. Dr. Aguirre has put in an order to attempt to wean the patient down on his oxygen use. The patient does ordinarily see Dr. Simpson as his rn trauma. The hospitalist service has placed a consultation to Dr. Simpson for pulmonary evaluation and recommendations regarding the ongoing hypoxia. Dr. Alcala continues to manage the postoperative urinary retention. The patient has a Nathan catheter in place. The plan is to leave this in place for approximately a week before a voiding trial. The patient is taking Flomax. PHYSICAL EXAMINATION VITAL SIGNS: Temperature is 98.1 degrees temporal. Pulse is 105. Respiratory rate is 24. Blood pressure is 130/75. Oxygen saturation is 95% with the patient receiving oxygen at 6 liters per minute by nasal cannula. ABDOMEN: All the abdominal incisions look good. The abdomen is soft and nontender. LABORATORY DATA White blood cell count is 6700. Hemoglobin is 14.3. Hematocrit is 43.5. Serum electrolytes are normal. Serum creatinine is 0.6. IMAGING DATA The patient did undergo a two-view upright chest x-ray today. This shows continued decrease of the very small left apical pneumothorax which is nearly completely resolved at this time. The subcutaneous emphysema at the neck also continues to decrease. The patient does have improved aeration of the left lower lobe of the lung with small persistent bilateral pleural effusions. IMPRESSION 1. Status post multiport robotic laparoscopic cholecystectomy on 07/17/2017. 2. Small left apical pneumothorax which is nearly completely resolved at this time. 3. Subcutaneous emphysema which is resolving. 4. Resolution of acute left chest pain. 5. Chronic obstructive pulmonary disease with history of dependence on nocturnal oxygen therapy at home preoperatively. 6. Left lower lobe pulmonary atelectasis which is improving. 7. Small bilateral pleural effusions. 8. Postoperative urinary retention. 9. Small left pericardial effusion demonstrated on echocardiogram on 2016. 10. Mild mitral regurgitation and moderate tricuspid regurgitation demonstrated on echocardiogram on 07/18/2017. PLAN 1. Continue postoperative care of the abdomen by Dr. Vick. 2. Continue medical care by the hospitalist service. 3. Continue cardiac care by Dr. Miller. 4. Continued management of postoperative urinary retention by Dr. Alcala. 5. Dr. Simpson has been consulted for pulmonary management of the patient. 6. Continue incentive spirometry, respiratory therapy treatments and oxygen administration. 7. Dr. Aguirre has ordered weaning of the oxygen administration. 8. Continue sequential compression devices for deep venous thrombosis prophylaxis. 9. Continue Protonix for GI protection. 10. Continue Nathan catheter and Flomax under the direction of Dr. Alcala for management of postoperative urinary retention. MTDD
[2017-07-20] MEDS: TAMSULOSIN 0.4 MG CAPSULE PO SCH (20:43)
[2017-07-20] MEDS: ATORVASTATIN 10 MG TABLET PO SCH (20:44)
[2017-07-21] MEDS: MORPHINE SULFATE 10 MG SYRINGE IV PRN ×2 (00:09→05:34)
[2017-07-21] MEDS: Oxycodone *IR* 5 MG TABLET PO PRN ×3 (05:34→20:35)
[2017-07-21] MEDS: PANTOPRAZOLE 40 MG TABLET PO SCH (05:34)
[2017-07-21] MEDS: ALBUTEROL/IPRATROPIUM 2.5mg-0.5mg/3ml NEB AEROSOL SCH ×4 (06:46→21:38)
[2017-07-21] MEDS: BUDESONIDE INH.SOLN 0.5mg/2ml NEB AEROSOL SCH ×2 (06:46→21:38)
[2017-07-21] MEDS: ASPIRIN *EC* 81 MG TABLET PO SCH (09:31)
[2017-07-21] MEDS: DOCUSATE SODIUM 100 MG CAPSULE PO SCH (09:31)
[2017-07-21] MEDS: ROFLUMILAST 500 MCG TABLET PO SCH (09:31)
[2017-07-21] MEDS: AMLODIPINE 5 MG TABLET PO SCH (09:32)
[2017-07-21] MEDS: POLYETHYL GLYCOL 3350 17gm PACKET PO SCH ×2 (09:32→22:03)
--- NOTE | 2017-07-21 15:02 | Progress Note ---
DATE 07/21/2017 HISTORY The patient was seen in consultation by Dr. Donald Simpson yesterday. Attempts have been made to wean down the oxygen administration for the patient. He is currently using oxygen at 4 liters per minute by nasal cannula. The patient was seen by Dr. Simpson again today. Dr. Simpson recommends that the patient stop smoking cigarettes. He recommends that the patient may need additional portable home oxygen at the time of dismissal from the hospital. He will see the patient in the office after the patient has been dismissed. The patient has minimal pain. He is eating well. He has not had a bowel movement yet since his operation. He has been using intravenous morphine and oxycodone which may be causing some constipation. He is receiving laxatives. PHYSICAL EXAMINATION VITAL SIGNS: Temperature is 96.7 degrees Fahrenheit oral. Pulse is 88. Respiratory rate is 18. Blood pressure is 103/72. Oxygen saturation is 94% on oxygen at 4 liters minute by nasal cannula. ABDOMEN: The abdominal incisions all look good. The abdomen is soft and nontender. LABORATORY DATA White blood cell count is 5900. There are no bands. Hemoglobin is 12.9. Hematocrit is 39.7. Serum sodium is 141. Serum potassium is 4.1. Serum creatinine is 0.6. IMAGING DATA Chest x-ray performed today looks good. There is still a small left pleural effusion. IMPRESSION 1. Status post multiport robotic laparoscopic cholecystectomy on 07/17/2017. 2. Small left apical pneumothorax which is nearly completely resolved at this time. 3. Chronic obstructive pulmonary disease with a history of dependence on nocturnal oxygen therapy at home preoperatively. 4. Left lower lobe pulmonary atelectasis which is improving. 5. Small bilateral pleural effusions. 6. Postop urinary retention. 7. Small left pericardial effusion demonstrated on echocardiogram on 2016. 8. Mild mitral regurgitation and moderate tricuspid regurgitation demonstrated on echocardiogram on 07/18/2017. PLAN 1. Continue postoperative care of the abdomen by Dr. Vick. 2. Continue medical care by the hospitalist service. 3. Continue cardiac care by Dr. Miller. 4. Continue management of postoperative urinary retention by Dr. Alcala. 5. Continue pulmonary care by Dr. Simpson. 6. Continue incentive spirometry, respiratory therapy treatments and oxygen administration. 7. Continue to attempt to wean the patient down on use of oxygen administration. 8. Make arrangements today for home oxygen therapy for the patient so that he can have oxygen administration at home during the day following discharge from the hospital. 9. Continue sequential compression devices for deep venous thrombosis prophylaxis. 10. Continue Protonix for GI protection. 11. Continue Nathan catheter and Flomax under the direction of Dr. Alcala for management of the postoperative urinary retention. 12. Discontinue intravenous morphine. 13. Laxatives as needed for treatment of constipation. 14. Dismiss patient from [facility] when cleared for dismissal from the medical standpoint by the hospitalist service. Arrangements are being made at this time for home oxygen use for the patient. [facility]
--- NOTE | 2017-07-21 16:57 | Progress Note ---
Subjective: Mr. Fox reports increased dyspnea from baseline with cough productive of discolored sputum. He denied wheezing at this point and is not having palpitations. He describes having some discomfort in his left lower anterior chest, especially with inspiration and minor abdominal discomfort. Appetite is good and is having no nausea or vomiting. Nathan catheter is present and will be readdressed by urology following discharge. Patient reports passing gas but that is not yet had a bowel movement since surgery. Objective Vital signs: Temperature 96.6 F L 07/21/17 16:17 Pulse Rate 86 07/21/17 16:17 Respiratory Rate 18 07/21/17 16:17 Blood Pressure 103/67 07/21/17 16:17 Pulse Oximetry 90 07/21/17 16:17 Supplemental oxygen at 4 L per nasal cannula EXAM General-alert, uncomfortable-appearing male HEENT-oropharynx clear, conjunctiva clear Lungs-decreased airflow throughout-more noticeable on the left than right, breath sounds clear, no wheezing Cardiac-regular rhythm, S1-S2 Abd-soft, nontender, nondistended, bowel sounds present, surgical scars healing well Ext-without edema Neuro-MAEW Psych-flat affect - Rhythm: Normal Sinus Rhythm Height/Weight/BMI: Height 1.8 m Weight 74.6 kg Body Mass Index 23.1 Results - Labs CBC & Chem 7: 07/21/17 05:21 07/21/17 05:21 - Imaging and Cardiology Chest x-ray Status: image reviewed by me (small left pleural effusion, may have very tiny residual left pneumothorax; COPD) Assessment and Plan (1) Chest pain Current visit: Yes Status: Acute (2) S/P cholecystectomy Current visit: Yes Status: Acute (3) COPD (chronic obstructive pulmonary disease) Problem details: Nocturnal O2 prior to admission Current visit: Yes Status: Chronic DVT Prophylaxis: SCD's Resuscitation Status: Full Code Assessment and Plan: Assessment Chest pain - secondary to pneumothorax and pneumomediastinum Dyspnea Small left pneumothorax Left subcutaneous emphysema Acute urinary retention S/P cholecystectomy COPD (chronic obstructive pulmonary disease) HTN (hypertension) Recent weight loss GERD (gastroesophageal reflux disease) Hyperlipidemia Dependence on nocturnal oxygen therapy Ambulatory oximetry obtained today with O2 sat 90% on room air (patient off oxygen only 5 minutes; with ambulation oxygen saturation dropped to 84% and required 3 L to maintain saturation above 90%. No new findings on chest x-ray by my review. Pneumothorax essentially resolved. Tolerating regular diet; MiraLAX increased to twice daily and Colace switched to Senokot to stimulate bowel function. Labs stable. Approaching discharge-tentatively plan home tomorrow with Nathan catheter and outpatient follow-up with Dr. Alcala. Dr. Simpson will reassess oxygen demand as an outpatient in his clinic in several weeks. Case discussed with Dr Vick and Dr. Simpson. Discussed with case management and nursing; ambulatory oximetry obtained and room air saturation to qualify for continuous home oxygen at discharge. Sepsis Assessment - Evaluation Sepsis screening result: No Definite Risk Hospital Course Summary Disclaimer: The visit summary below is not to be considered part of the above Progress Note. Hospital Course: 07/18/17 Plan Continue postoperative care as per Dr. Vick In light of acute chest pain, increased dyspnea and increased oxygen demands Ordered a serum troponin to be ran on this morning 6 a.m. lab draw. Will also obtain serial troponins every 6 hours 3. Given findings of moderate pericardial effusion from CT scan in May. Will obtain an echocardiogram for further cardiac evaluation. On her patient. Cardiac telemetry. Consultation placed for Dr. Miller evaluation and recommendations. Continue with scheduled DuoNeb 4 times a day, will add Pulmicort twice a day. Patient did have urinary retention overnight and is now requiring Nathan catheter Requiring to 3 liters of oxygen by nasal cannula. Routinely patient does use home oxygen at nighttime only. We will work on weaning down oxygen. Encourage use of incentive spirometry Resume home Daliresp dose Obtain daily weight Protonix 40 millirems daily for GI protection Morphine for pain control Will discuss further order and plan of care with attending Dr Aguirre Appreciate medical consultation At time of discharge medical care is to return to PCP Dr Cunha. 07/18/17 Cardiology Chest pain: - not likely cardiac etiology, pain is worse with inspiration. - Trend serial troponin levels, Repeat EKG in 6 hours. - CTA to rule out PE as is hypoxic. - Aspirin 81mg daily - Continue home Amlodipine and Atorvastatin Thank you for allowing us to participate in the care of this patient, we will follow along with you. 07/19/17 Chest pain improved today. - Serial troponins negative. - Small left pneumothorax, extensive subcutaneous emphysema and pleural effusions seen on CTA, no PE. 07/20/17 Start Metoprolol 25mg po BID
[2017-07-21] MEDS: NICOTINE 21 MG PATCH TD SCH (19:37)
[2017-07-21] MEDS: ATORVASTATIN 10 MG TABLET PO SCH (21:26)
[2017-07-21] MEDS: TAMSULOSIN 0.4 MG CAPSULE PO SCH (21:26)
[2017-07-21] MEDS: SENNA + DOCUSATE TABLET PO SCH (22:03)
--- NOTE | 2017-07-21 22:46 | Cardiology Progress Note ---
Subjective Principal diagnosis: chest pain, dyspnea <Mi Loco R - 07/21/17 22:52> Interval history: CC: Chest Pain/Dyspnea Mr. Fox is sitting on the side of his bed, wearing O2 when arriving into his room. He states that he is waiting for someone to take him outside so that he can smoke a cigarette. He denied any CP/pressure, SOA, N/V and/or diaphoresis. Notified RN patient trying to go outside to smoke, she was concerned with patient safety and hospital policy. Spoke with who stated she would order Nicoderm patch and she notified RN pt to stay in room. He is currently dependant on O2 and attempting to qualify for home oxygen. <Mi Loco R - 07/21/17 22:52> Exam Vital signs: Temperature 97.4 F 07/22/17 08:49 Pulse Rate 91 07/22/17 12:44 Respiratory Rate 12 07/22/17 11:32 Blood Pressure 109/69 07/22/17 12:44 Pulse Oximetry 89 L 07/22/17 12:41 <Zurdo Miller - 07/25/17 16:11> Temperature 96.6 F L 07/21/17 16:17 Pulse Rate 80 07/21/17 18:52 Respiratory Rate 18 07/21/17 16:17 Blood Pressure 103/67 07/21/17 16:17 Pulse Oximetry 91 07/21/17 18:52 Laboratory Results - last 48 hr 07/20/17 07/20/17 07/21/17 04:32 04:32 05:21 WBC 6.7 5.9 RBC 4.62 4.24 L Hgb 14.3 D 12.9 L Hct 43.5 D 39.7 L MCV 94.2 93.6 MCH 31.0 30.4 MCHC 32.9 32.5 RDW Std Deviation 49.3 47.9 Plt Count 209 218 MPV 10.4 9.8 Immature Gran % (Auto) 0.0 0.0 Neut % (Auto) 69.5 H 65.2 Lymph % (Auto) 16.6 L 21.0 L Mcnairy % (Auto) 10.5 H 9.3 H Eos % (Auto) 3.3 4.2 H Baso % (Auto) 0.1 0.3 Neut # 4.6 3.9 Lymph # 1.1 1.3 Mcnairy # 0.7 0.6 Eos # 0.2 0.3 Baso # 0.0 0.0 Abs Immat Gran (auto) 0.00 0.00 Turbidity < 20 Sodium 140 Potassium 3.7 Chloride 99 Carbon Dioxide 30 Anion Gap 11 BUN 14.0 Creatinine 0.6 L GFR Calculation 133 BUN/Creatinine Ratio 23 Glucose 113 H Calculated Osmolality 271 Calcium 9.5 Icterus Index < 2 Specimen Hemolysis 18 07/21/17 05:21 WBC RBC Hgb Hct MCV MCH MCHC RDW Std Deviation Plt Count MPV Immature Gran % (Auto) Neut % (Auto) Lymph % (Auto) Mcnairy % (Auto) Eos % (Auto) Baso % (Auto) Neut # Lymph # Mcnairy # Eos # Baso # Abs Immat Gran (auto) Turbidity < 20 Sodium 141 Potassium 4.1 Chloride 98 Carbon Dioxide 33 H Anion Gap 10 BUN 12.0 Creatinine 0.6 L GFR Calculation 133 BUN/Creatinine Ratio 20 Glucose 89 Calculated Osmolality 270 Calcium 9.5 Icterus Index < 2 Specimen Hemolysis < 15 Home Medications Naproxen 250 mg tablet 250 mg PO QDRHS 90 Days tab 05/30/17 [History Confirmed 07/17/17] Colace (Docusate sodium) 100 mg capsule 100 mg PO BID #60 cap 06/14/17 [Rx Confirmed 07/17/17] Advair Diskus (Fluticasone 250 mcg-salmeterol 50 mcg)dose powdr for inhalation 1 - 2 puff INH DAILY 30 Days #60 06/21/17 [History Confirmed 07/17/17] [place] 10 mg-acetaminophen 325 mg tablet 1 tab PO QID PRN 30 Days #120 tab [History Confirmed 07/17/17] Prevacid (Lansoprazole) 30 mg capsule,delayed release 30 mg PO DAILY 90 Days cap 06/21/17 [History Confirmed 07/17/17] amlodipine 5 mg tablet 5 mg PO DAILY tab 06/21/17 [History Confirmed 07/17/17] atorvastatin 10 mg tablet 10 mg PO DAILY 90 Days tab 06/21/17 [History Confirmed 07/17/17] roflumilast 500 mcg tablet 500 mcg PO DAILY 30 Days tab 06/21/17 [History Confirmed 07/17/17] umeclidinium 62.5 mcg/actuation blister powder for inhalation 1 puff INH DAILY 30 Days #30 06/21/17 [History Confirmed 07/17/17] raNITIdine HCl [Zantac] 150 mg PO DAILY 07/02/17 [History Confirmed 07/17/17] Mobic (Meloxicam) 7.5 mg tablet 7.5 mg PO BID #60 tab 07/10/17 [Rx Confirmed ] Current Medications Acetaminophen (Tylenol) 500 - 1,000 mg PO Q6H PRN PRN Reason: Discomfort Last Admin: 07/18/17 04:20 Dose: 1,000 mg Albuterol/Ipratropium (Duoneb) 3 ml AEROSOL PRN PRN Last Admin: 07/18/17 07:17 Dose: 3 ml Albuterol/Ipratropium (Duoneb) 3 ml AEROSOL RTQID REPLACED BY [facility] Last Admin: 07/21/17 21:38 Dose: 3 ml Amlodipine Besylate (Norvasc) 5 mg PO DAILY REPLACED BY [facility] Last Admin: 07/21/17 09:32 Dose: 5 mg Amlodipine Besylate (Norvasc) 2.5 mg PO DAILY REPLACED BY [facility] Aspirin (Ecotrin) 81 mg PO DAILY REPLACED BY [facility] Last Admin: 07/21/17 09:31 Dose: 81 mg Atorvastatin Calcium (Lipitor) 10 mg PO HS REPLACED BY [facility] Last Admin: 07/21/17 21:26 Dose: 10 mg Bisacodyl (Dulcolax) 10 mg RECTALLY DAILY PRN PRN Reason: Constipation Budesonide (Pulmicort Inhalation) 0.5 mg AEROSOL RTBID REPLACED BY [facility] Last Admin: 07/21/17 21:38 Dose: 0.5 mg Ibuprofen (Motrin) 400 - 800 mg PO Q6H PRN PRN Reason: Pain Last Admin: 07/17/17 19:43 Dose: 800 mg Magnesium Hydroxide (Mom) 30 ml PO DAILY PRN PRN Reason: Constipation Last Admin: 07/21/17 09:32 Dose: 30 ml Metoprolol Tartrate (Lopressor) 25 mg PO BIDWM REPLACED BY [facility] Last Admin: 07/21/17 17:34 Dose: 25 mg Nicotine (Nicoderm) 21 mg TD DAILY REPLACED BY [facility] Last Admin: 07/21/17 19:37 Dose: Not Given Ondansetron HCl (Zofran) 4 - 8 mg IVP Q6H PRN PRN Reason: Nausea &/or vomiting Oxycodone HCl (Roxicodone *Ir*) 5 - 10 mg PO Q3H PRN PRN Reason: Pain Last Admin: 07/21/17 20:35 Dose: 10 mg Pantoprazole Sodium (Protonix Tab) 40 mg PO ACB REPLACED BY [facility] Last Admin: 07/21/17 05:34 Dose: 40 mg Polyethylene Glycol (Miralax) 17 gm PO DAILY PRN PRN Reason: Constipation Polyethylene Glycol (Miralax) 17 gm PO BID REPLACED BY [facility] Last Admin: 07/21/17 22:03 Dose: Not Given Promethazine HCl (Phenergan Inj) 12.5 - 25 mg IVP Q6H PRN PRN Reason: Nausea &/or vomiting Roflumilast (Daliresp) 500 mcg PO DAILY REPLACED BY [facility] Last Admin: 07/21/17 09:31 Dose: 500 mcg Senna/Docusate Sodium (Senna Plus Tablet) 2 tab PO BID REPLACED BY [facility] Last Admin: 07/21/17 22:03 Dose: Not Given Sodium Chloride (Iv Flush) 10 - 80 ml IVF PRN PRN PRN Reason: Flushing Last Admin: 07/20/17 16:31 Dose: 10 ml Tamsulosin HCl (Flomax) 0.4 mg PO HS REPLACED BY [facility] Last Admin: 07/21/17 21:26 Dose: 0.4 mg Intake & Output 07/19/17 07/20/17 07/21/17 07/22/17 06:59 06:59 06:59 06:59 Intake Total 600 / 600 700 / 700 1560 / 1560 950 / 950 Output Total 2350 / 2350 2325 / 2325 1600 / 1600 1725 / 1725 Balance -1750 / -1750 -1625 / -1625 -40 / -40 -775 / -775 Weight 75.5 kg 75 kg 75.5 kg 74.6 kg <[place],Mi 07/21/17 22:52> - Constitutional no acute distress, cooperative, agitated <[place],Mi 07/21/17 22:52> - Routine HEENT Exam Head: Present: normocephalic <[place],Mi R 07/21/17 22:52> Eye: Present: EOMI <[place],Mi 07/21/17 22:52> ENT: Present: mucous membranes moist <Mi Loco 07/21/17 22:52> - Routine Neck Exam Absent: JVD, carotid bruit, lymphadenopathy <Mi Loco 07/21/17 22:52> - Routine Respiratory Exam Present: dyspnea, decreased breath sounds. Absent: respiratory distress, rhonchi, wheezes <Mi Loco 07/21/17 22:52> - Routine Cardiovascular Exam Present: RRR, no murmur. Absent: gallop, rubs, JVD <Mi Loco 07/21/17 22:52> - Routine Abdominal Exam Present: soft, non distended, non tender <Mi Loco 07/21/17 22:52> - Routine Skin Exam Present: intact, dry, warm. Absent: erythema, lesions, rash <Mi Loco 07/21/17 22:52> - Routine Neurological Exam Present: alert, oriented X3 <Mi Loco 07/21/17 22:52> - Routine Psychiatric Exam Present: normal affect, cooperative. Absent: good insight, good judgment < Mi Loco 07/21/17 22:52> - Urinary Catheter Management 2-way Urethral Cath placed during this visit: yes <Zurdo Miller 07/25/17 16:11> Insertion date: 07/18/17 <PaulZurdo 07/25/17 16:11> Straight Cath placed during this visit: yes, but has since been removed by the nurse <Zurdo Miller 07/25/17 16:11> yes, but has since been removed by the nurse <Mi Loco 07/21/17 23:10> Insertion date: 07/18/17 <PaulZurdo 07/25/17 16:11> 07/18/17 <[place]Mi 07/21/17 22:52> Insertion time: 19:42 <Zurdo Miller 07/25/17 16:11> 19:42 <[place] 07/21/17 22:52> Removal date: 07/18/17 <Zurdo Miller 07/25/17 16:11> 07/18/17 <Mi Loco R 07/21/17 22:52> Removal time: 05:37 <Zurdo Miller - 07/25/17 16:11> 05:37 <Mi Loco 07/21/17 22:52> Progress Note-A&P (1) Chest pain Status: Acute (2) S/P cholecystectomy Status: Acute (3) Dyspnea Status: Acute (4) COPD (chronic obstructive pulmonary disease) Problem details: Nocturnal O2 prior to admission Status: Chronic (5) HTN (hypertension) Status: Chronic (6) Hyperlipidemia Status: Chronic (7) Nonsustained ventricular tachycardia Status: Acute <Zurdo Miller - 07/25/17 16:11> (1) Chest pain Status: Acute Assessment and plan: Chest pain resolved. CXR today shows almost complete resolution of his PTX with improving Sq air. Pulmonology following. (2) Dyspnea Status: Acute Assessment and plan: O2 on 4L, has been has high as 10L. Attending has ordered exercise oximetry on RA to assess O2 need/requirement. Con't to encourage smoking cessation. started Nicoderm patch today. (3) Nonsustained ventricular tachycardia Status: Acute Assessment and plan: Remained NSR. Monitoring BP on Meoprolol 25mg BID. Hemodynamically stable. Repeat EKG in AM. (4) COPD (chronic obstructive pulmonary disease) Problem details: Nocturnal O2 prior to admission Status: Chronic Assessment and plan: Con't to reuire O2 to keep sats up. Staff collecting data to qualify for home O2. Con't current regimen and encouraging smoking cessation with Nicoderm patch. (5) HTN (hypertension) Status: Chronic Assessment and plan: BID BB initiated yesterday for NSVT. BP greadually dropping. Lowest BP 99/65 today. Denies any light-headed/dizziness. Decreased Norvasc to 2.5g daily. Con' t to monitor BP closely. (6) S/P cholecystectomy Status: Acute Assessment and plan: Denies any pain, N/V. Surgery following. (7) Hyperlipidemia Status: Chronic Assessment and plan: Con't statin and ASA. <Mi Loco 07/21/17 23:09> - Time Spent With Patient Total time spent is greater than 50% in coordination of care (as documented) at patient's floor/unit and/or counseling patient: <Zurdo Miller - 07/25/17 16:11> Total time spent is greater than 50% in coordination of care (as documented) at patient's floor/unit and/or counseling patient: <Mi Loco 07/21/17 22:52> less than 15 minutes <Mi Loco 07/21/17 23:08> - Attestation Attestation Narrative: Recommendation After examining the patient I agree with the above assessment. I am involved in the formulation of the patient's plan of care. <Zurdo Miller - 07/25/17 16:11> Sepsis Assessment - Evaluation Sepsis screening result: No Definite Risk <Mi Loco 07/21/17 22:52> Hospital Course Summary Disclaimer: The visit summary below is not to be considered part of the above Progress Note. <Zurdo Miller 07/25/17 16:11> The visit summary below is not to be considered part of the above Progress Note. <Mi Loco 07/21/17 22:52> Hospital Course: 07/18/17 Plan Continue postoperative care as per Dr. Vick In light of acute chest pain, increased dyspnea and increased oxygen demands Ordered a serum troponin to be ran on this morning 6 a.m. lab draw. Will also obtain serial troponins every 6 hours 3. Given findings of moderate pericardial effusion from CT scan in May. Will obtain an echocardiogram for further cardiac evaluation. On her patient. Cardiac telemetry. Consultation placed for Dr. Miller evaluation and recommendations. Continue with scheduled DuoNeb 4 times a day, will add Pulmicort twice a day. Patient did have urinary retention overnight and is now requiring Nathan catheter Requiring to 3 liters of oxygen by nasal cannula. Routinely patient does use home oxygen at nighttime only. We will work on weaning down oxygen. Encourage use of incentive spirometry Resume home Daliresp dose Obtain daily weight Protonix 40 millirems daily for GI protection Morphine for pain control Will discuss further order and plan of care with attending Dr Aguirre Appreciate medical consultation At time of discharge medical care is to return to PCP Dr Cunha. 07/18/17 Cardiology Chest pain: - not likely cardiac etiology, pain is worse with inspiration. - Trend serial troponin levels, Repeat EKG in 6 hours. - CTA to rule out PE as is hypoxic. - Aspirin 81mg daily - Continue home Amlodipine and Atorvastatin Thank you for allowing us to participate in the care of this patient, we will follow along with you. 07/19/17 Chest pain improved today. - Serial troponins negative. - Small left pneumothorax, extensive subcutaneous emphysema and pleural effusions seen on CTA, no PE. 07/20/17 Start Metoprolol 25mg po BID <Mi Loco - 07/21/17 22:52>
[2017-07-22 04:20] VITALS: TEMP 97.4
[2017-07-22] MEDS: PANTOPRAZOLE 40 MG TABLET PO SCH (05:44)
[2017-07-22] MEDS: SALINE FLUSH 10ml SYRINGE IVF PRN (05:48)
[2017-07-22] MEDS: ALBUTEROL/IPRATROPIUM 2.5mg-0.5mg/3ml NEB AEROSOL SCH ×2 (07:18→11:31)
[2017-07-22] MEDS: BUDESONIDE INH.SOLN 0.5mg/2ml NEB AEROSOL SCH (07:18)
[2017-07-22] MEDS ORDERED: AMLODIPINE 2.5 MG TABLET PO SCH (09:00)
[2017-07-22] MEDS ORDERED: NICOTINE PATCH REMOVAL TD SCH (09:00)
[2017-07-22] MEDS: ASPIRIN *EC* 81 MG TABLET PO SCH (10:03)
[2017-07-22] MEDS: POLYETHYL GLYCOL 3350 17gm PACKET PO SCH (10:03)
[2017-07-22] MEDS: SENNA + DOCUSATE TABLET PO SCH (10:03)
[2017-07-22] MEDS: ROFLUMILAST 500 MCG TABLET PO SCH (10:04)
[2017-07-22] MEDS: NICOTINE 21 MG PATCH TD SCH (10:05)
--- NOTE | 2017-07-22 11:11 | XRay Report ---
Indication: CHEST PAIN, SOA PROCEDURE: XR chest 1V: Encounter: Initial Comparison: July 21, 2017 Findings: Left apical pneumothorax has now resolved. No new infiltrates. Lungs are stable in appearance with small pleural effusions. Heart size and mediastinal contours are stable. Pulmonary vascularity is unchanged. Continued decrease in edema in the neck. Impression: Interval resolution of the left apical pneumothorax. .
--- NOTE | 2017-07-22 11:11 | XRay Report ---
INDICATION: F/U Pneumothorax PROCEDURE: CHEST 2-VIEWS UPRIGHT (PA & LAT) Encounter: Initial COMPARISON: July 20, 2017 FINDINGS: Trace left apical pneumothorax is almost completely resolved. Lung umanzor are stable with small pleural effusions, left greater than right. No new infiltrates. Heart size and mediastinal contours are unchanged. Subcutaneous emphysema in the neck continues to resolve. Impression: Near resolution of the left apical pneumothorax with decreasing subcutaneous emphysema. .
[2017-07-22 11:34] VITALS: RESP 12
--- NOTE | 2017-07-22 11:50 | Discharge Instructions ---
Discharge Plan - Med Rec/Dispo Referrals/Follow Up: Ean Alcala MD [Physician] - (Kaitlynn will call from office of Dr Vick to make appointment for patient to see Dr Alcala.) Prescriptions: New Acetaminophen [Tylenol] 500 - 1,000 mg PO Q6H PRN tablet PRN Reason: Discomfort Aspirin *EC* [Ecotrin] 81 mg PO DAILY tablet Ibuprofen [Motrin] 400 - 800 mg PO Q6H PRN tablet PRN Reason: Pain Milk of Magnesia [Mom] 30 ml PO DAILY PRN udc PRN Reason: Constipation Tamsulosin [Flomax] 0.4 mg PO HS capsule Amlodipine [Norvasc] 2.5 mg PO DAILY tablet Metoprolol Tartrate [Lopressor] 25 mg PO BIDWM tablet Continue raNITIdine HCl [Zantac] 150 mg PO DAILY Colace (Docusate sodium) 100 mg capsule 100 mg PO BID #60 cap Prevacid (Lansoprazole) 30 mg capsule,delayed release 30 mg PO DAILY 90 Days cap atorvastatin 10 mg tablet 10 mg PO DAILY 90 Days tab roflumilast 500 mcg tablet 500 mcg PO DAILY 30 Days tab umeclidinium 62.5 mcg/actuation blister powder for inhalation 1 puff INH DAILY 30 Days #30 Advair Diskus (Fluticasone 250 mcg-salmeterol 50 mcg)dose powdr for inhalation 1 - 2 puff INH DAILY 30 Days #60 Discontinued amlodipine 5 mg tablet 5 mg PO DAILY tab Naproxen 250 mg tablet 250 mg PO QDRHS 90 Days tab [place] 10 mg-acetaminophen 325 mg tablet 1 tab PO QID PRN 30 Days #120 tab PRN Reason: pain Mobic (Meloxicam) 7.5 mg tablet 7.5 mg PO BID #60 tab - Disposition 01 Discharged Home, Self-Care
[2017-07-22 12:51] VITALS: O2SAT 89
[2017-07-22 13:21] VITALS: BP 109/69; PULSE 91
--- NOTE | 2017-07-22 14:14 | Progress Note ---
Subjective: Mr. Fox reported having no rest dyspnea but became short of breath when he got up to go to the bathroom and developed mild chest pain in the left precordium; pain has persisted when he takes a deep inspiration. He reported pains a little different today than it has been other days but he can't clarify what is different today than in the past. He denied palpitations. He denied nausea or vomiting, is eating well, and had a small bowel movement overnight. He denies lightheadedness, fevers, or chills. He continues to have some cough productive of yellow sputum. Ambulatory oximetry was repeated today with oxygen saturation 89% on room air almost immediately after oxygen was discontinued and saturation dropping progressively as oxygen was increased from 2 L to 3 L to ultimately 5 L to maintain saturation above 90%. Objective Vital signs: Temperature 97.4 F 07/22/17 08:49 Pulse Rate 91 07/22/17 12:44 Respiratory Rate 12 07/22/17 11:32 Blood Pressure 109/69 07/22/17 12:44 Pulse Oximetry 89 L 07/22/17 12:41 EXAM General-NAD, alert HEENT-conjunctiva clear, oropharynx clear Lungs-mildly labored respirations at rest, faint wheezes left base posteriorly Cardiac-regular rhythm, S1-S2 Abd-soft, nondistended, nontender, bowel sounds present Ext-without edema Neuro-ambulates without assistance, MAEW Psych-flat affect - Height/Weight/BMI: Height 1.8 m Weight 74.4 kg Body Mass Index 23.1 Results - Labs CBC & Chem 7: 07/21/17 05:21 07/22/17 10:51 - ECG Data Tracing #1 I reviewed this ECG and interpreted as documented below: (low voltage in the limb leads, sinus rhythm, no acute changes; unchanged from EKG on 07/18/17) - Imaging and Cardiology Chest x-ray Status: image reviewed by me (small pleural effusions, no increased vascular markings-improved from yesterday; no evidence of pneumothorax) Assessment and Plan (1) Chest pain Current visit: Yes Status: Acute (2) S/P cholecystectomy Current visit: Yes Status: Acute (3) COPD (chronic obstructive pulmonary disease) Problem details: Nocturnal O2 prior to admission Current visit: Yes Status: Chronic Assessment and Plan: Assessment Chest pain - secondary to pneumothorax and pneumomediastinum Dyspnea Small left pneumothorax Left subcutaneous emphysema Acute urinary retention S/P cholecystectomy COPD (chronic obstructive pulmonary disease) HTN (hypertension) Recent weight loss GERD (gastroesophageal reflux disease) Hyperlipidemia Dependence on nocturnal oxygen therapy Ambulatory oximetry obtained today with O2 sat 89% on room air (patient off oxygen only briefly; with ambulation required 5 L to maintain oxygen saturation above 90%). Discharge with supplemental oxygen 3-4 L as previously coordinated. Need to continue home oxygen discussed with the patient as he develops increased symptoms when he becomes hypoxic as demonstrated this morning. Patient initially indicated he would not wait for portable tank to be delivered but agreed to wait when his daughter arrived. Need to discontinue tobacco reviewed with the patient and absolute need not to smoke with oxygen on reviewed. Also discussed nicotine substitutes that can be used with supplemental oxygen including nicotine patches and gum but reminded the patient that e-cigs cannot be used with oxygen. No evidence of new acute cardiac or respiratory pathology by available data. Patient to follow up with Dr. Simpson regarding oxygen demand at discharge. Blood pressure stable. Recommend patient continue to use bowel regimen at discharge. Patient follow-up with Dr. Cunha in the near future in addition to Dr. Alcala later this week and Dr. Vick. Discharge plans discussed with respiratory therapy and nursing in addition to Dr. Vick. Chest x-ray/EKG reviewed by myself. Sepsis Assessment - Evaluation Sepsis screening result: No Definite Risk Hospital Course Summary Disclaimer: The visit summary below is not to be considered part of the above Progress Note. Hospital Course: 07/18/17 Plan Continue postoperative care as per Dr. Vick In light of acute chest pain, increased dyspnea and increased oxygen demands Ordered a serum troponin to be ran on this morning 6 a.m. lab draw. Will also obtain serial troponins every 6 hours 3. Given findings of moderate pericardial effusion from CT scan in May. Will obtain an echocardiogram for further cardiac evaluation. On her patient. Cardiac telemetry. Consultation placed for Dr. Miller evaluation and recommendations. Continue with scheduled DuoNeb 4 times a day, will add Pulmicort twice a day. Patient did have urinary retention overnight and is now requiring Nathan catheter Requiring to 3 liters of oxygen by nasal cannula. Routinely patient does use home oxygen at nighttime only. We will work on weaning down oxygen. Encourage use of incentive spirometry Resume home Daliresp dose Obtain daily weight Protonix 40 millirems daily for GI protection Morphine for pain control Will discuss further order and plan of care with attending Dr Aguirre Appreciate medical consultation At time of discharge medical care is to return to PCP Dr Cunha. 07/18/17 Cardiology Chest pain: - not likely cardiac etiology, pain is worse with inspiration. - Trend serial troponin levels, Repeat EKG in 6 hours. - CTA to rule out PE as is hypoxic. - Aspirin 81mg daily - Continue home Amlodipine and Atorvastatin Thank you for allowing us to participate in the care of this patient, we will follow along with you. 07/19/17 Chest pain improved today. - Serial troponins negative. - Small left pneumothorax, extensive subcutaneous emphysema and pleural effusions seen on CTA, no PE. 07/20/17 Start Metoprolol 25mg po BID
--- NOTE | 2017-07-24 15:37 | Progress Note ---
DATE 07/22/2017 HISTORY In his office progress note yesterday Dr. Donald Simpson did state that it was okay for the patient to be discharged from the hospital from the Pulmonology standpoint. Dr. Clementine Diaz today states that she thinks the patient is stable be discharged from the hospital today from the hospitalist standpoint. The patient is still using oxygen by nasal cannula. Arrangements have been made for the patient to have home oxygen to use during the day at home after discharge. He was still using oxygen at 4 liters per minute by nasal cannula this morning. The patient reports that he has not used any analgesics overnight. He is not having any pain at this time. The patient is eating well. He has had a bowel movement in the last 24 hours. PHYSICAL EXAMINATION VITAL SIGNS: Temperature is 97.4 degrees Fahrenheit oral. Pulse is 93. Respiratory rate is 20. Blood pressure is 132/77. Oxygen saturation is 93% on oxygen at 4 liters per minute by nasal cannula. ABDOMEN: The abdominal incisions all look good. The abdomen is soft and nontender. LABORATORY DATA Serum sodium is 142. Serum potassium is 4.1. Serum creatinine is 0.7. IMAGING DATA Chest x-ray today shows that the tiny left apical pneumothorax is now completely resolved. The patient continues to have some small bilateral pleural effusions. IMPRESSION 1. Status post multiport robotic laparoscopic cholecystectomy on 07/17/2017. 2. Complete resolution of small left apical pneumothorax. 3. Chronic obstructive pulmonary disease with a history of home oxygen use. 4. Small bilateral pleural effusions. 5. Postoperative urinary retention. 6. Small pericardial effusion demonstrated on echocardiogram on 07/18/2017. 7. Mild mitral regurgitation and moderate tricuspid regurgitation demonstrated on echocardiogram on 07/18/2017. PLAN 1. Dismiss patient from [facility] today. 2. Arrangements have been made for the patient to have home oxygen therapy during the day and night. 3. Arrangements have been made for the patient to have a Home Health Care nurses help him with management of the Nathan catheter and with home oxygen use. 4. The patient will go home with a Nathan catheter in place. He will have an office visit with Dr. Alcala on 07/25/2017 for continued management of postoperative urinary retention. KAELYN
--- NOTE | 2017-07-26 09:34 | Discharge Summary ---
DISCHARGE DIAGNOSES 1. Persistent right upper quadrant abdominal pain. 2. Biliary dysfunction/biliary dyskinesia demonstrated on 07/09/2017 hepatobiliary scan with gallbladder ejection fraction. 3. Postoperative small left apical pneumothorax. 4. Postoperative pneumomediastinum. 5. Postoperative subcutaneous emphysema. 6. Postoperative acute noncardiac left chest pain secondary to pneumothorax. 7. Postoperative acute dyspnea. 8. Severe chronic obstructive pulmonary disease with preoperative nocturnal home oxygen use. 9. Chronic nicotine dependence. 10. Postoperative left lower lobe pulmonary atelectasis. 11. Postoperative bilateral small pleural effusions. 12. Postoperative urinary retention. 13. Small pericardial effusion. 14. Mild mitral regurgitation and moderate tricuspid regurgitation. 15. Unintentional weight loss of unknown cause. 16. Gastroesophageal reflux disease. 17. Small sliding hiatal hernia. 18. Minimal patchy superficial chronic gastritis. 19. Chronic constipation. 20. Hypertension. 21. Hyperlipidemia. OPERATION Multiport robotic laparoscopic cholecystectomy on 07/17/2017. CONSULTS 1. Dr. Jose Aguirre 2. Dr. Clementine Diaz 3. Dr. Miller 4. Dr. Alcala 5. Dr. Donald Nicholssher HOSPITAL COURSE This patient was admitted to [facility] by Dr. Vick on 07/17/2017. History and physical examination findings at the time of admission to the hospital can be found in the dictated admission history and physical examination report in the chart. The patient was admitted with persistent right upper quadrant abdominal pain. The patient was known to have biliary dysfunction/biliary dyskinesia demonstrated preoperatively on an 07/09/2017 hepatobiliary scan with gallbladder ejection fraction. The patient was known at the time of admission to the hospital to have severe chronic obstructive pulmonary disease with preoperative nocturnal home oxygen use. The patient was known to have additional chronic medical problems including gastroesophageal reflux disease, small sliding hiatal hernia, unintentional weight loss of unknown cause, minimal patchy superficial chronic gastritis, chronic constipation, nicotine dependence, hypertension and hyperlipidemia. The patient did undergo multiport robotic laparoscopic cholecystectomy on 2016. The patient tolerated the operation well. Details of the operative findings can be found in the operative report in the chart. There were no complications apparent at the time of operation. The patient was transferred from the recovery room out to a room on the surgical unit. The patient seemed to do well and be making a normal postoperative recovery throughout the day on 07/17/2017. The patient was eating well. The patient was using oxygen by nasal cannula. The patient did have a history of preoperative home use of oxygen by nasal cannula. The patient was using incentive spirometry throughout the day on 07/17/2017. The patient did have some labored breathing during the night of 07/17/2017 and was given some respiratory therapy treatments and some BiPAP treatments during the night. The patient did have some complaints of left chest pain on the morning of 2016. An EKG was performed which showed sinus tachycardia and nonspecific ST-T- wave changes. A chest x-ray was performed which showed left lung atelectasis with trace left pleural effusion. No pneumothorax was visible on this upright portable chest x-ray performed on the morning of 07/18/2017. The patient did appear to have some atelectasis at the left lung. The patient did have some chest x-ray findings of subcutaneous emphysema. This was most prominent at the neck. The patient had a CBC performed. White blood cell count was 13,900. Hemoglobin was 13.6. Hematocrit was 40. The patient was given some intravenous morphine. The hospitalist service was consulted on the morning of 07/18/2017 for evaluation and treatment of the chest pain. Dr. Miller was then consulted by the hospitalist service. The patient did have an initial serum troponin level of 0.033. Repeat serum troponin was 0.052. Repeat troponin level after this was 0.050. All of these serial troponin levels were negative. Dr. Miller did order an echocardiogram. The echocardiogram was read by Dr. Miller. The echocardiogram showed normal left ventricular systolic function with an ejection fraction of 65%. The echocardiogram showed a small pericardial effusion with no evidence of any cardiac tamponade. The echocardiogram showed mild mitral regurgitation, aortic sclerosis and moderate tricuspid regurgitation. It was thought by the cardiology service that the left chest pain was not likely to have a cardiac etiology. The patient continued to be monitored with cardiac telemetry. Oxygen saturation was 92% on room air and 94% on oxygen at 2 liters per minute by nasal cannula at 0457 hours on 07/18/2017. The patient did experience some labored breathing and shallow breathing with a respiratory rate of 28 and a pulse of 105 at some point during morning. The patient was given another BiPAP treatment and was breathing much better after that. The patient underwent evaluation by the hospitalist service and DuoNeb q.i.d. and Pulmicort b.i.d. were ordered. This helped the patient with his breathing. The patient did have one more episode late in the afternoon where he had some tachycardia and he received another BiPAP treatment at that time and was breathing much better after that. The patient did undergo a chest CT angiography with intravenous contrast late in the afternoon or early evening. This was done to look for pulmonary embolus. This showed no evidence of any pulmonary emboli. The chest CT scan did show a small left anterior pneumothorax which was less than 10% of the lung volume. There was also some pneumomediastinum demonstrated on the chest CT scan. There was also some subcutaneous emphysema throughout the neck and upper thorax demonstrated on chest CT scan. There was also some consolidation of the left lower lobe of the lung thought to be due to atelectasis. The patient continued to receive respiratory therapy treatments and incentive spirometry and oxygen administration. Dr. Aguirre did stop the BiPAP since it was thought that this might worsen the pneumothorax. The patient was started on some high-flow oxygen therapy by Dr. Aguirre at this time to help with the resolution of the pneumothorax. The patient was noted to be voiding only small amounts every 30- 60 minutes early on the morning of 07/18/2017. A urinary bladder scan was performed which showed greater than 999 mL of residual urine within the bladder. The patient did undergo straight catheterization at this time on the morning of 07/18/2017 and was found have 1300 mL residual urine drained from the urinary bladder by straight catheterization. Dr. Alcala was consulted. The patient continued to void small amounts of urine frequently throughout the day. The patient did undergo another bladder scan on the evening of 07/18/2017 which showed greater than 999 mL of residual urine within the urinary bladder. Dr. Alcala did see the patient in consultation on the evening of 07/18/2017 after this. The patient did have a chronic history of severe prostatism. Dr. Alcala did think that the patient had postoperative urinary retention at this time. Dr. Alcala did direct the nurses to place an indwelling Nathan catheter in the patient. Dr. Alcala did start the patient on treatment with tamsulosin 0.4 mg p.o. at bedtime daily. He did plan to leave the indwelling Nathan catheter in place for at least a week and then give the patient a voiding trial. The patient was using sequential compression devices for deep venous thrombosis prophylaxis at this time. The patient was placed on Protonix for GI protection. Plans were made to repeat the chest x-ray on the following day to monitor the status of the small left pneumothorax. It was hoped that this would improve with observation. On 07/19/2017, the patient was having less left chest pain. He continued to have some significant shortness of breath. The patient had some cough and congestion. He had shortness of breath with any activity. The patient also had this shortness of breath with activity preoperatively. The patient appeared to have shallow breathing. The patient was given some intravenous Lasix. High-flow oxygen therapy was continued to help the pneumothorax resolve. The patient continued to receive incentive spirometry and respiratory therapy treatments. Physical therapy and occupational therapy were consulted to help the patient. The patient was seen by Dr. Aguirre. The patient was also seen by Jennyfer Parrish APRN for the cardiology service. Vital signs were all stable. Oxygen saturation was 94% on high-flow oxygen. Chest examination did reveal some bilateral wheezes. White blood cell count was 7200 with no bands. Hemoglobin was 12.6. Hematocrit was 38. Serum sodium was 139. Serum potassium was 4.1. Serum creatinine was 0.5. The patient did have an upright chest x-ray performed on the morning of 07/19/2017. This did show a tiny left apical pneumothorax which appeared to be smaller than it had been on the previous day. It was also noted on the chest x-ray that there was considerably less subcutaneous emphysema at the neck compared to the previous day. The patient did have some left lower lobe pulmonary atelectasis. It was thought that the very small left apical pneumothorax was resolving spontaneously. It was thought that the patient probably experienced the left apical pneumothorax at the time of operation on 07/17/2017 when he had some barotrauma with a bleb at the apex of the left lung which had ruptured while the patient was intubated and coughing during the operation. The pneumothorax appeared to be resolving spontaneously. It was thought that the acute dyspnea experienced by the patient was probably associated to a large degree with the severe underlying chronic obstructive pulmonary disease and emphysema which this patient was known to have. Incentive spirometry, respiratory therapy treatments and oxygen administration were continued. Sequential compression devices were continued for deep venous thrombosis prophylaxis. Protonix was continued for GI for protection. Physical therapy and occupational therapy were consulted to help with mobilization of the patient at this time. On 07/20/2017, the patient denied any chest pain. He denied any abdominal pain. He stated that his appetite was good and he was eating well. The patient felt much better at this time. The patient was still using oxygen at 6 liters per minute by nasal cannula to achieve an oxygen saturation of 95%. He did have a chest x-ray performed which showed continued decrease of the very small left apical pneumothorax with near complete resolution of the pneumothorax at this time. There was also decreasing subcutaneous emphysema demonstrated by the chest x-ray. Dr. Aguirre did place an order at this time to attempt to wean the patient down on oxygen use. The patient does ordinarily see Dr. Donald Simpson as his pc network technician. Dr. Simpson was consulted by the hospitalist service for pulmonary evaluation and recommendations regarding the ongoing hypoxia. The patient was seen in consultation by Dr. Simpson on 2016. Dr. Alcala continue to manage the postoperative urinary retention. The patient did have a Nathan catheter in place. The plan was to leave the Nathan catheter in place for approximately a week before having the patient undergo a voiding trial. The patient was taking Flomax. Vital signs were stable. White blood cell count was 6700. Hemoglobin was 14.3. Hematocrit was 43.5. The patient did undergo a two-view upright chest x-ray on 07/20/2017 which showed continued decrease of the very small left apical pneumothorax which was nearly completely resolved at this time. The subcutaneous emphysema at the neck also continued to decrease. The chest x-ray also showed improved aeration of the left lower lobe of the lung with small persistent bilateral pleural effusions. Weaning of oxygen administration was attempted throughout the day on 2016. Sequential compression devices were continued for deep venous thrombosis prophylaxis. Dr. Simpson did recommend at the time of his consultation with the patient on 07/20/2017 that the patient stop smoking cigarettes. He recommended the patient might need additional portable home oxygen at home following dismissal from the hospital. He did plan to see the patient in the office after the patient was dismissed. Attempts were continued throughout the day on 07/20/2017 to wean oxygen administration for the patient. On 07/21/2017, the patient reported that he was having minimal pain. He was eating well. The patient did have a history of chronic constipation preoperatively. The patient reported on 07/21/2017 the he had not had a bowel movement yet since his operation. He had been using intravenous morphine and oxycodone which were thought to be contributing to the constipation. He was receiving laxatives in the hospital at this time. The intravenous morphine was discontinued on 07/21/2017. Use of oxycodone was decreased. Laxatives were continued. Vital signs were stable. Oxygen saturation was 94% on oxygen at 4 liters per minute by nasal cannula. White blood cell count was 5900. Hemoglobin was 12.9. Hematocrit was 39.7. Chest x-ray performed on 07/21/2017 showed near complete resolution of the left apical pneumothorax. There was also decreasing subcutaneous emphysema demonstrated on the chest x-ray. There still were some small bilateral pleural effusions. Plans were being made at this time for home oxygen use for the patient during the daytime. Plans were also being made at this time to arrange Home Health Care for the patient following discharge from the hospital. Discharge planning was occurring during this time. On 07/22/2017, the patient reported that he had not used any analgesics during the previous night. He was not having any pain. He was eating well. He did have a bowel movement during the previous [address] Donald Simpson had stated on the previous day that it was okay with him for the patient to be discharged from the hospital from a pulmonology standpoint. Dr. Clementine Diaz did think at this time that the patient was stable to be discharged from the hospital from the hospitalist standpoint. Vital signs remained stable. Oxygen saturation was 93% on oxygen at 4 liters per minute by nasal cannula. The chest x-ray performed on 07/22/2017 showed that the tiny left apical pneumothorax was now completely resolved. The patient continued to have some small bilateral pleural effusions. Arrangements had been made at this time for the patient to have home oxygen use during the day and night following discharge from the hospital. Arrangements had by now been made for the patient have Home Health Care nurses help him with management of the Nathan catheter and the oxygen use at home following discharge from the hospital. Plans were made for the patient to go home with the Nathan catheter in place. The patient was dismissed from [facility] in stable condition on 07/22/2017. A pathology report was returned on the gallbladder submitted at the time of the operation performed on 07/17/2017. Pathology report diagnosis on the gallbladder was benign gallbladder without significant inflammatory infiltrates or atypia. It was noted on the pathology report that the patient did have a clinical history of biliary dyskinesia. DISCHARGE MEDICATIONS 1. Norvasc 2.5 mg one p.o. daily. 2. Metoprolol tartrate 25 mg one p.o. b.i.d. 3. Flomax 0.4 mg one p.o. daily at bedtime. 4. Colace 100 mg one capsule p.o. b.i.d. 5. Advair Diskus 250/50 micrograms 1-2 puffs inhaled daily. 6. Umeclidinium 62.5 mcg/actuation blister powder for inhalation 1 puff inhaled daily. 7. Prevacid 30 mg one capsule p.o. daily. 8. Atorvastatin 10 mg one tablet p.o. daily. 9. Roflumilast 500 mcg one tablet p.o. daily. 10. Zantac 150 mg p.o. daily. 11. Tylenol 325 mg 1-2 tablets p.o. q.5h. p.r.n. pain. 12. Ibuprofen 200 mg 2-4 tablets p.o. q.6h. p.r.n. pain DISCHARGE DISPOSITION 1. Followup office visit with Dr. Alcala on 07/25/2017 for continued management of postoperative urinary retention. 2. Follow up office visit with Dr. Donald Simpson regarding the pulmonary status of the patient. 3. Followup with Dr. Noman Cunha at the office. KAELYN
== END 2017-07-22 13:25 | disposition home health service (06) | DRG 418 ==
LOC: SUR 05:32 → SRG 05:35
PROVIDERS: ADMIT Surgery; ATTEND Surgery

== ENCOUNTER 2018-05-29 16:19 | Inpatient (IN) ==
--- NOTE | 2018-05-29 16:29 | Emergency Department Report ---
SOB HPI - General Chief Complaint: Shortness of Breath/Dyspnea Stated Complaint: Trouble breathing Time Seen by Provider: 05/29/18 16:29 Source: patient Mode of arrival: ambulatory - History of Present Illness Patient is a 72-year-old male presents the ER for evaluation of shortness of air. Patient history of COPD, CHF. Patient currently on 3 L by nasal cannula chronically. Patient's had worsening shortness of air, now swelling in his legs. Patient has attempted home medications with no relief so patient decided since the ER for evaluation. - Related Data Home Medications Medication Instructions Recorded Confirmed Docusate Sodium [Colace] 100 mg PO DAILY 05/29/18 05/29/18 Fluticasone/Salmeterol 250/50 1 puff INH DAILY 05/29/18 05/29/18 [Advair 250-50 Diskus] Lansoprazole [Prevacid] 30 mg PO DAILY 05/29/18 05/29/18 Roflumilast [Daliresp] 500 mg PO DAILY 05/29/18 05/29/18 Umeclidinium [place] [Incruse 1 puff IH DAILY 05/29/18 05/29/18 Ellipta] Previous Rx's Medication Instructions Recorded Albuterol HFA Inhaler [Ventolin 2 puff INH Q4H PRN #1 inhaler 06/01/18 Hfa 90 mcg/actuation] DiltiaZEM CD [Cardizem CD 120 MG] 120 mg PO DAILY #30 cap 06/01/18 Nitroglycerin [Nitrostat] 0.4 mg SL Q5M PRN #30 tab 06/01/18 Norvasc (amlodipine) 5 mg tablet 5 mg PO DAILY #90 tab 06/19/18 [place] 7.5 mg-acetaminophen 325 mg 1 tab PO TID PRN #60 tab 06/28/18 tablet Lasix (Furosemide) 20 mg tablet 1 tab PO DAILY #30 tab 07/04/18 Lipitor (atorvastatin) 10 mg tablet 10 mg PO HS #90 tab 07/04/18 Allergies Allergy/AdvReac Type Severity Reaction Status Date / Time latex AdvReac blisters Verified 06/28/18 09:44 Review of Systems Constitutional: Reports: weakness. Denies: fever, chills Eyes: Denies: eye pain ENT: Denies: ear pain, throat pain, dental pain Cardiovascular: Reports: palpitations, dyspnea on exertion. Denies: chest pain Respiratory: Reports: dyspnea, wheezes. Denies: cough Gastrointestinal: Denies: abdominal pain, nausea, vomiting Musculoskeletal: Denies: back pain Neurological: Denies: headache Psychiatric: Denies: anxiety Endocrine: Denies: fatigue Hematological/Lymphatic: Denies: easy bleeding PFS Patient Stated Medical History Cerebrovascular Accident No Paralysis No Seizures No Syncope No Angina No Cardiac Arrhythmia No Congestive Heart Failure No Coronary Artery Disease No Heart Murmur No Hypertension Yes Hypotension No Myocardial Infarction No Rheumatic Fever No Valvular Heart Disease Yes: mild MR, moderate TR with pulm. HTN, dilated left atrium, EF 65% Other Cardiology No Asthma No Bronchitis No Chronic Obstructive Pulmonary Yes Disease (COPD) Pneumonia No Pulmonary Edema No Pulmonary Embolism No Sleep Apnea No Tuberculosis No Other Respiratory Yes: history of lung cancer, s/p right lobectomy Diabetes Mellitus Type 1 No Diabetes Mellitus Type 2 No Gastroesophageal Reflux Yes: well controlled Disease Other GI Yes: weight loss Hx Benign Prostatic Yes: RETENTION SINCE GALLBLADDER SURG Hyperplasia Osteoarthritis No Other Musculoskeletal No Anesthesia Reactions No Blood Transfusions No Chemotherapy No Malignant Hyperthermia No Other Yes: right lower lobectomy Depression No Now No Clinic Medical History (Last Reviewed 01/07/18 @ 10:08 by Sheila Larson [facility]) GERD (gastroesophageal reflux disease) (Chronic Medical) HLD (hyperlipidemia) (Chronic Medical) HTN (hypertension) (Chronic Medical) Lung cancer (Chronic Medical) Pneumonia (Chronic Medical) Surgical History: 1. Appendectomy as a child at [place], [place]. 2. Tonsillectomy as a child at [place], [place]. 3. Right total knee replacement operation in 2008 or 2009 at [facility] at [place], [place]. 4. Thoracotomy with right lower lobectomy in [address] Zavala at [facility] at [place], [place]. This was performed for treatment of lung carcinoma. 5. Repair of umbilical hernia with resection of umbilicus in 2010 or 2011 at [facility] at [place], [place]. 6. Esophagogastroduodenoscopy with biopsies and total colonoscopy with biopsies on 07/03/[address] Vick at [facility] at [place], [place]. One postoperative diagnosis was gastroesophageal reflux disease. Another postoperative diagnosis was small sliding hiatal hernia. Lap Cholecystectomy @ [facility] 07/2017 Family History: Family History (Last Reviewed 01/07/18 @ 10:08 by ASHLYN Reyes) Mother No problems noted. Father No problems noted. - Social History Smoking status: Current every day smoker Packs-years: 50 second hand exposure: No Substance use type: former substance user Alcohol intake: former Alcohol intake frequency: former alcohol drinker Housing: house Household members: none Current occupational status: retired Does patient use chewing tobacco?: No Current residence: Apartment/Private Home Physical Exam - Limitations Limitations: no limitations - General General appearance: alert, in no apparent distress - Head Head exam: normocephalic - ENT ENT exam: Present: normal oropharynx, mucous membranes moist - Neck Neck exam: Present: trachea midline. Absent: tenderness - Chest Chest inspection: Present: symmetric chest wall rise. Absent: tenderness - Respiratory Respiratory exam: Present: crackles. Absent: respiratory distress, wheezes, accessory muscle use, prolonged expiratory phase - Cardiovascular Cardiovascular exam: Present: regular rate, normal rhythm, normal heart sounds - Abdominal Exam Abdominal exam: Present: soft, distention. Absent: tenderness, normal bowel sounds - Skin Skin exam: Present: warm, dry - Neurological Exam Neurological exam: Present: alert, oriented X3 - Psychiatric Psychiatric exam: Present: normal affect, normal mood Shortness of Breath/Dyspnea - Medical Records Attestation: I reviewed the patient's medical records. - Lab Data Attestation: I reviewed the patient's lab results. Result diagrams: 06/01/18 04:00 06/01/18 04:00 - EKG Data EKG #1 EKG attestation: Yes: I reviewed and interpreted this EKG. Rate: tachycardia Rhythm: NSR When compared to previous EKG there are: no significant changes Interpretation: no acute changes Disposition Clinical Impression: CHF exacerbation Disposition: To [facility] Acute Care Condition: Stable - Seen By: physician
[2018-05-29] MEDS ORDERED: FUROSEMIDE 100 MG/10 ML INJECTION IVP ONE (16:43)
[2018-05-29] MEDS ORDERED: ALBUTEROL/IPRATROPIUM 2.5mg-0.5mg/3ml NEB AEROSOL ONE (16:57)
[2018-05-29] MEDS: SALINE FLUSH 10ml SYRINGE IVF PRN (17:04)
[2018-05-29] MEDS ORDERED: SALINE FLUSH 10ml SYRINGE IV PRN (19:44)
[2018-05-30] MEDS ORDERED: Bisacodyl EC TAB 5 MG TABLET PO PRN (09:42)
[2018-05-30] MEDS ORDERED: MAGNESIUM CITRATE 296ml PO ONE (09:43)
[2018-05-30] MEDS: FUROSEMIDE 40 MG/4 ML INJECTION IVP SCH ×2 (10:10→17:53)
[2018-05-30] MEDS: ENOXAPARIN 40 MG/0.4 ML INJECTION SQ SCH (10:10)
--- NOTE | 2018-05-30 15:03 | Echocardiogram ---
DATE OF PROCEDURE May 30, [address] Lane MD This is a two-dimensional echo with spectral Doppler, color-flow and M-mode. It was obtained in a patient with congestive heart failure. Left atrium is dilated. Left ventricle end-diastolic dimension is normal. Left ventricle wall thickness is increased. LV systolic function is normal with ejection fraction of 64%. Right atrium is normal. Right ventricle is normal. Aortic root dimension is normal. Mitral valve is morphologically normal with mild mitral regurgitation. Aortic valve is a trileaflet structure with fibrocalcific changes with no stenosis or insufficiency. Tricuspid valve shows mild tricuspid regurgitation with estimated pulmonary artery systolic pressure at the upper limits of normal of 32. Pulmonary valve shows no pulmonary insufficiency. There is mild to moderate pericardial effusion with no echocardiographic evidence of tamponade. IMPRESSION 1. Mild to moderate pericardial effusion with no echocardiographic evidence of tamponade. 2. Concentric left ventricular hypertrophy. 3. Normal LV systolic function with ejection fraction of 64%. 4. Mild mitral regurgitation. 5. Aortic sclerosis. 6. Mild tricuspid regurgitation with estimated pulmonary artery systolic pressure at the upper limits of normal at 32. MTDD
[2018-05-30 16:27] VITALS: BMI 23.1
[2018-05-30] MEDS: NICOTINE 21 MG PATCH TD SCH (17:52)
[2018-05-30] MEDS: SALINE FLUSH 10ml SYRINGE IVF PRN (17:53)
[2018-05-30] MEDS: ALBUTEROL 2.5mg/3ml (0.083%) NEB AEROSOL SCH (21:07)
--- NOTE | 2018-05-30 22:06 | History & Physical Report ---
History of Present Illness Date: 05/29/18 Chief complaint: lower extremity swelling and shortness of breath HPI: This is 72-year-old man who is seen in clinic today after 7 to 10 days of lower extremity swelling bilaterally with an increasing shortness of breath that has limited his activity to being uncomfortable even at rest when lying down. He has been sleeping in a moderately upright position and notes that he has gained approximately 15 pounds over the last 2 weeks. He does not have a previous history of congestive heart failure. He does have it nagging twinges chest pain from time to time but this is gone on for a significant amount of time and at no point in the last several weeks as he had any significant excruciating chest discomfort Review of Systems - Constitutional Constitutional: Present: as per HPI, weight gain - EENMT Eyes: Absent: blurry vision, diplopia Mouth/Throat: Absent: pain, sore throat - Cardiovascular Cardiovascular: Present: dyspnea on exertion, orthopnea, edema. Absent: chest pain, palpitations Vascular: Absent: intermittent claudication, pallor of an extermity - Respiratory Respiratory: Present: as per HPI, cough, dyspnea, dyspnea on exertion. Absent: hemoptysis, excessive phlegm production - Gastrointestinal Gastrointestinal: Absent: abdominal pain, change in stool character, coffee ground emesis - Integumentary/Breasts Integumentary: Absent: lesions, wounds - Neurological Neurological: Absent: focal weakness, lack of coordination - Psychiatric Psychiatric: Absent: anxiety, depression Past Medical History Medical History: Medical History (Last Reviewed 01/07/18 @ 10:08 by Sheila Larson Mark) GERD (gastroesophageal reflux disease) HLD (hyperlipidemia) HTN (hypertension) Lung cancer Pneumonia Surgical History: 1. Appendectomy as a child at [place], [place]. 2. Tonsillectomy as a child at [place], [place]. 3. Right total knee replacement operation in 2008 or 2009 at [facility] at [place], [place]. 4. Thoracotomy with right lower lobectomy in [address] Zavala at [facility] at [place], [place]. This was performed for treatment of lung carcinoma. 5. Repair of umbilical hernia with resection of umbilicus in 2010 or 2011 at [facility] at [place], [place]. 6. Esophagogastroduodenoscopy with biopsies and total colonoscopy with biopsies on 07/03/[address] Vick at [facility] at [place], [place]. One postoperative diagnosis was gastroesophageal reflux disease. Another postoperative diagnosis was small sliding hiatal hernia. Lap Cholecystectomy @ [facility] [place] 07/2017 Family History: Family History (Last Reviewed 01/07/18 @ 10:08 by Sheila Larson [facility]) Mother No problems noted. Father No problems noted. Family History: No Significant Family History - Social History Smoking status: Current every day smoker Substance use type: does not use Alcohol intake frequency: does not drink Medications Home Medications Medication Instructions Recorded Confirmed Type Albuterol HFA Inhaler [Ventolin 2 puff INH Q4H PRN 05/29/18 05/29/18 History Hfa 90 mcg/actuation] Amlodipine [Norvasc] 5 mg PO DAILY 05/29/18 05/29/18 History Atorvastatin [Lipitor] 10 mg PO HS 05/29/18 05/29/18 History Docusate Sodium [Colace] 100 mg PO DAILY 05/29/18 05/29/18 History Fluticasone/Salmeterol 250/50 1 puff INH DAILY 05/29/18 05/29/18 History [Advair 250-50 Diskus] Lansoprazole [Prevacid] 30 mg PO DAILY 05/29/18 05/29/18 History Roflumilast [Daliresp] 500 mg PO DAILY 05/29/18 05/29/18 History Umeclidinium [place] [Incruse 1 puff IH DAILY 05/29/18 05/29/18 History Ellipta] Allergies Allergy/AdvReac Type Severity Reaction Status Date / Time latex AdvReac blisters Verified 05/29/18 16:28 Exam Vital Signs: Temperature 97.8 F 05/30/18 16:57 Pulse Rate 108 H 05/30/18 20:00 Respiratory Rate 20 05/30/18 21:07 Blood Pressure 138/78 05/30/18 20:00 Pulse Oximetry 97 05/30/18 21:07 Telemetry Rhythm: Sinus Tachycardia Height/Weight/BMI: Height 5 ft 11 in Weight 75.3 kg Body Mass Index 23.1 - Constitutional Present: moderate distress, well nourished, well developed - Routine HEENT Exam Eye: Present: EOMI ENT: Present: mucous membranes moist, dentition normal - Routine Respiratory Exam Present: accessory muscle use, prolonged expiratory phase, respiratory distress , wheezes, crackles - Routine Cardiovascular Exam Present: S1, S2, murmur, tachycardia - Routine Abdominal Exam Present: soft, normoactive bowel sounds, non distended. Absent: tenderness - Routine Extremities Exam Present: edema, normal capillary refill - Routine Skin Exam Present: dry, warm - Routine Neurological Exam Present: alert, oriented X3, CN II-XII intact - Routine Psychiatric Exam Present: normal affect Results - Labs CBC & Chem 7: 05/29/18 16:49 05/29/18 16:49 Assessment and Plan (1) New onset of congestive heart failure Current visit: Yes Status: Acute (2) Edema extremities Current visit: Yes Status: Acute (3) Smoker Current visit: Yes Status: Acute (4) Acute respiratory failure with hypoxia Current visit: Yes Status: Acute Assessment and Plan: Patient is showing signs of congestive heart failure with the development of edema and orthopnea. He is audibly wet through the chest on respiration values stethoscope. Respiratory distress is requiring supplemental oxygen which is not part of his baseline requirement. He does have a reported 15 pound weight gain and this is believable looking at the pillowy 3+ edema from midcalf down bilaterally. He is a smoker as well and likely has some underlying COPD exacerbation. Starting with the steroids and breathing treatments this time. We will get SCD' s on his lower extremities to attempt some mechanical mobilization of the edema as well. He has requested a nicotine patch. Echocardiogram is been ordered DISPOSITION: observation status initially but may easily convert to inpatient status if not improve within 24 hours. Required urine output may take 2 to 3 days Resuscitation Status: Full Code - Physician Narrative Narrative: Date: 05/30/18 Time: 2202 Hospital Course Summary Disclaimer: The visit summary below is not to be considered part of the above Progress Note.
--- NOTE | 2018-05-30 22:18 | Progress Note ---
- Date 05/30/18 Subjective: Patient says his breathing better and has having less difficulty overnight as he was able to tolerate the BiPAP. Objective Vital signs: Temperature 97.8 F 05/30/18 16:57 Pulse Rate 108 H 05/30/18 20:00 Respiratory Rate 20 05/30/18 21:07 Blood Pressure 138/78 05/30/18 20:00 Pulse Oximetry 97 05/30/18 21:07 Height/Weight/BMI: Height 5 ft 11 in Weight 75.3 kg Body Mass Index 23.1 - Constitutional Present: well nourished, well developed - Routine HEENT Exam Eye: Present: EOMI ENT: Present: mucous membranes moist, dentition normal - Routine Respiratory Exam Present: dyspnea, wheezes, crackles - Routine Cardiovascular Exam Present: RRR. Absent: murmur - Routine Abdominal Exam Present: soft, normoactive bowel sounds, non distended. Absent: tenderness - Routine Extremities Exam Present: normal capillary refill - Routine Skin Exam Present: dry, warm - Routine Neurological Exam Present: alert, oriented X3, CN II-XII intact - Routine Lymphatic Exam Lymphatic: Absent: adenopathy - Routine Psychiatric Exam Present: normal affect Results - Labs CBC & Chem 7: 05/29/18 16:49 05/29/18 16:49 - Echocardiogram History of Echocardiogram: Left atrium is dilated. Left ventricle end- diastolic dimension is normal. Left ventricle wall thickness is increased. LV systolic function is normal with ejection fraction of 64%. Right atrium is normal. Right ventricle is normal. Aortic root dimension is normal. Mitral valve is morphologically normal with mild mitral regurgitation. Aortic valve is a trileaflet structure with fibrocalcific changes with no stenosis or insufficiency. Tricuspid valve shows mild tricuspid regurgitation with estimated pulmonary artery systolic pressure at the upper limits of normal of 32. Pulmonary valve shows no pulmonary insufficiency. There is mild to moderate pericardial effusion with no echocardiographic evidence of tamponade. IMPRESSION. 1. Mild to moderate pericardial effusion with no echocardiographic evidence of tamponade. 2. Concentric left ventricular hypertrophy. 3. Normal LV systolic function with ejection fraction of 64%. 4. Mild mitral regurgitation. 5. Aortic sclerosis. 6. Mild tricuspid regurgitation with estimated pulmonary artery systolic pressure at the upper limits of normal at 32. Assessment and Plan (1) Diastolic congestive heart failure with preserved left ventricular function , NYHA class 2 Current visit: Yes Status: Acute (2) Pericardial effusion without cardiac tamponade Current visit: Yes Status: Acute (3) Edema extremities Current visit: Yes Status: Acute (4) Smoker Current visit: Yes Status: Acute (5) Acute respiratory failure with hypoxia Current visit: Yes Status: Acute (6) New onset of congestive heart failure Current visit: Yes Status: Acute Assessment and Plan: Patient is making good improvement but still has significant fluid overload to improve. Findings of fluid overload with pericardial effusion indicated worthwhile value in keeping extra day. Now that he is moderately diuresed his wheezing is more prominent and we will be more aggressively treat his COPD as well, scheduling breathing treatments and adding IV Solu-Medrol. Appreciation to for the quick results of the echocardiogram. Averting patient inpatient status DVT Prophylaxis: SCD's - Physician Narrative Narrative: Date: 05/30/18 Time: 2215 Hospital Course Summary Disclaimer: The visit summary below is not to be considered part of the above Progress Note.
[2018-05-31] MEDS: METHYLPREDNISOLONE SOD SUCC 40mg/ml INJECTION IVP SCH ×3 (00:29→17:11)
[2018-05-31] MEDS: ALBUTEROL 2.5mg/3ml (0.083%) NEB AEROSOL SCH ×4 (08:30→19:39)
[2018-05-31] MEDS: FUROSEMIDE 40 MG/4 ML INJECTION IVP SCH ×2 (08:49→17:11)
[2018-05-31] MEDS: NICOTINE 21 MG PATCH TD SCH (08:49)
[2018-05-31] MEDS: SALINE FLUSH 10ml SYRINGE IVF PRN ×2 (08:49→17:11)
[2018-05-31] MEDS: NICOTINE PATCH REMOVAL TD SCH (08:50)
[2018-05-31] MEDS: ENOXAPARIN 40 MG/0.4 ML INJECTION SQ SCH (08:51)
[2018-05-31] MEDS ORDERED: NITROGLYCERIN 0.4 MG SUBLINGUAL TABLET SL PRN (13:37)
[2018-05-31] MEDS ORDERED: MORPHINE SULFATE 4mg INJECTION IVP PRN (13:38)
[2018-06-01] MEDS: METHYLPREDNISOLONE SOD SUCC 40mg/ml INJECTION IVP SCH ×2 (01:09→08:51)
[2018-06-01] MEDS: ALBUTEROL 2.5mg/3ml (0.083%) NEB AEROSOL SCH ×3 (08:19→15:10)
[2018-06-01] MEDS: FUROSEMIDE 40 MG/4 ML INJECTION IVP SCH (08:51)
[2018-06-01] MEDS: NICOTINE 21 MG PATCH TD SCH (08:51)
[2018-06-01] MEDS: ENOXAPARIN 40 MG/0.4 ML INJECTION SQ SCH (08:51)
[2018-06-01] MEDS: SALINE FLUSH 10ml SYRINGE IVF PRN (08:52)
[2018-06-01] MEDS: NICOTINE PATCH REMOVAL TD SCH (08:52)
[2018-06-01] MEDS ORDERED: DiltiaZEM IR 30 MG TABLET PO SCH ×2 (12:08→17:00)
[2018-06-01 12:10] VITALS: TEMP 98
[2018-06-01 15:20] VITALS: RESP 22; O2SAT 99
[2018-06-01 15:25] VITALS: BP 120/76
--- NOTE | 2018-06-01 16:10 | Progress Note ---
- Date 05/31/18 Subjective: Patient states that his legs feels significantly better. Having typically breathing. He is noting more wheezing is this time but states this is a chronic problem for him. Objective Vital signs: Temperature 98.0 F 06/01/18 12:10 Pulse Rate 101 H 06/01/18 15:24 Respiratory Rate 22 06/01/18 15:24 Blood Pressure 120/76 06/01/18 15:24 Pulse Oximetry 99 06/01/18 15:24 Rhythm: Normal Sinus Rhythm Cardiac Ectopy: PAC's Height/Weight/BMI: Height 5 ft 11 in Weight 74.5 kg Body Mass Index 23.1 - Constitutional Present: no acute distress, thin - Routine HEENT Exam Head: Present: normocephalic, atraumatic Eye: Present: EOMI ENT: Present: mucous membranes moist, dentition normal - Routine Respiratory Exam Present: CTA bilaterally, prolonged expiratory phase, wheezes. Absent: rales, respiratory distress - Routine Cardiovascular Exam Present: RRR, S1, S2. Absent: murmur - Routine Abdominal Exam Present: soft, normoactive bowel sounds, non distended. Absent: tenderness - Routine Extremities Exam Present: edema, normal capillary refill - Routine Skin Exam Present: dry, warm - Routine Neurological Exam Present: alert, oriented X3, CN II-XII intact - Routine Lymphatic Exam Lymphatic: Absent: adenopathy - Routine Psychiatric Exam Present: normal affect Results - Labs CBC & Chem 7: 06/01/18 04:00 06/01/18 04:00 Assessment and Plan (1) Diastolic congestive heart failure with preserved left ventricular function , NYHA class 2 Status: Acute (2) Pericardial effusion without cardiac tamponade Status: Acute (3) Edema extremities Status: Acute (4) Smoker Status: Acute (5) Acute respiratory failure with hypoxia Status: Acute (6) New onset of congestive heart failure Status: Acute Assessment and Plan: Patient is making good improvement but still has significant fluid overload to improve. Findings of fluid overload with pericardial effusion indicated worthwhile value in keeping extra day. Now that he is moderately diuresed his wheezing is more prominent and we will be more aggressively treat his COPD as well, scheduling breathing treatments and adding IV Solu-Medrol. Appreciation to for the quick results of the echocardiogram. Averting patient inpatient status - Physician Narrative Narrative: Date: 06/01/18 Time: 1608 Hospital Course Summary Disclaimer: The visit summary below is not to be considered part of the above Progress Note.
--- NOTE | 2018-06-01 16:13 | Discharge Summary ---
Discharge Information Date of admission: 05/30/18 13:19 Anticipated date of discharge: 06/01/18 Attending Physician: Sahil Lane MD Primary care physician: Noman Cunha, DO - Discharge Diagnosis (1) Diastolic congestive heart failure with preserved left ventricular function , NYHA class 2 Status: Acute (2) Pericardial effusion without cardiac tamponade Status: Acute (3) Edema extremities Status: Acute (4) Smoker Status: Acute (5) Acute respiratory failure with hypoxia Status: Acute (6) New onset of congestive heart failure Status: Acute Diastolic heart failure - Laboratory Labs: 06/01/18 04:00 06/01/18 04:00 History of Present Illness HPI: This is 72-year-old man who is seen in clinic today after 7 to 10 days of lower extremity swelling bilaterally with an increasing shortness of breath that has limited his activity to being uncomfortable even at rest when lying down. He has been sleeping in a moderately upright position and notes that he has gained approximately 15 pounds over the last 2 weeks. He does not have a previous history of congestive heart failure. He does have it nagging twinges chest pain from time to time but this is gone on for a significant amount of time and at no point in the last several weeks as he had any significant excruciating chest discomfort Objective Vital signs: Temperature 98.0 F 06/01/18 12:10 Pulse Rate 101 H 06/01/18 15:24 Respiratory Rate 22 06/01/18 15:24 Blood Pressure 120/76 06/01/18 15:24 Pulse Oximetry 99 06/01/18 15:24 Listed as PVCs the patient did actually have 16 be run of ventricular tachycardia in the early hours this morning. Rhythm: Normal Sinus Rhythm, Premature Ventricular Contractions Cardiac Ectopy: Rare PVC's Height/Weight/BMI: Height 5 ft 11 in Weight 74.5 kg Body Mass Index 23.1 - Constitutional Present: no acute distress, thin. Absent: cooperative - Routine HEENT Exam Eye: Present: EOMI ENT: Present: mucous membranes moist, dentition normal - Routine Respiratory Exam Present: CTA bilaterally. Absent: wheezes - Routine Cardiovascular Exam Present: RRR. Absent: murmur - Routine Abdominal Exam Present: soft, normoactive bowel sounds, non distended. Absent: tenderness - Routine Extremities Exam Present: normal capillary refill - Routine Skin Exam Present: dry, warm - Routine Neurological Exam Present: alert, oriented X3, CN II-XII intact - Routine Lymphatic Exam Lymphatic: Absent: adenopathy - Routine Psychiatric Exam Present: normal affect Hospital Course This is a general summary of the patient's hospital course. For more details refer to the complete medical record. Time spent with patient: greater than 35 minutes Discharge Plan - Discharge Disposition Disposition: Discharged Home, Self-Care *Condition: Stable Reason For Visit (Visit label in EMR): Fluid overload, new CHF - Discharge Medications *Discharge Medications: New DiltiaZEM CD [Cardizem CD 120 MG] 120 mg PO DAILY #30 cap Nitroglycerin [Nitrostat] 0.4 mg SL Q5M PRN #30 tab PRN Reason: Chest Pain Furosemide [Lasix 20 mg Tab] 1 tab PO DAILY #30 tab Continue Amlodipine [Norvasc] 5 mg PO DAILY Lansoprazole [Prevacid] 30 mg PO DAILY Umeclidinium [place] [Incruse Ellipta] 1 puff IH DAILY Roflumilast [Daliresp] 500 mg PO DAILY Fluticasone/Salmeterol 250/50 [Advair 250-50 Diskus] 1 puff INH DAILY Albuterol HFA Inhaler [Ventolin Hfa 90 mcg/actuation] 2 puff INH Q4H PRN #1 inhaler PRN Reason: Prn Orders Atorvastatin [Lipitor] 10 mg PO HS Docusate Sodium [Colace] 100 mg PO DAILY - Discharge Packet/Instructions *Diet: Low-sodium diet limited to 2 g daily *Activity: As tolerated. Discontinue smoking *Pain Management/Treatment: [id number] medicines as needed *Wound Care: None *Expected Signs/Symptoms: Continued improvement with medications *Notify Physician if: Return to hospital if having chest pain unrelieved by sublingual nitro. Return if dizzy week or very short of breath *During Business Hours Contact: Primary care or cardiology *After Business Hours Contact: Emergency room *Pending Lab/Results: Follow up w/Provider - Referrals/Follow Up *Referrals/Follow Up: Zurdo Miller MD [Physician] - - Patient Handouts - Dismissal Complete Discharge Instructions are:: Complete Physician Narrative - Narrative Attestation Narrative: Date: 06/01/18 Time: 1810
[2018-06-01 16:16] VITALS: PULSE 100
== END 2018-06-01 16:42 | disposition home or self-care (01) | DRG 291 ==
LOC: ED 16:19 → EDHOLD 16:19 → MED 19:30
PROVIDERS: ADMIT Family Medicine; ATTEND Family Medicine